=== PATIENT | male | born 1955 | race African-American/Black ===

== ENCOUNTER 2019-08-16 16:53 | Inpatient (IN) ==
[2019-08-16] MEDS ORDERED: SALINE LOCK IV FLUID XX ONE (19:21)
[2019-08-16] MEDS ORDERED: NS 1,000 ML IV ONE (19:21)
--- NOTE | 2019-08-16 19:33 | PROVIDER DOCUMENTATION ---
HPI-General Adult - General Chief Complaint: Abnormal Lab[s] Stated Complaint: SOB/COUGH Time Seen by Provider: 08/16/19 18:08 Source: family, residential records Allergies/Adverse Reactions: Patient Allergies Allergy/AdvReac Type Severity Reaction Status Date / Time Penicillins Allergy Unknown Verified 10/21/18 10:56 Sulfa (Sulfonamide Allergy Unknown Verified 10/21/18 10:56 Antibiotics) Home Medications: Home Medication List Medication Instructions Recorded Confirmed Last Taken Type Aspirin EC 81 mg PEG QAM 09/21/15 08/13/19 10/09/17 08:00 History Donepezil [Aricept] 10 mg PEG QHS 09/21/15 08/13/19 10/08/17 20:00 History Thiamine [Vitamin B-1] 100 mg PEG QAM 09/21/15 08/13/19 10/09/17 09:00 History Folic Acid 1 mg PEG QAM 10/09/17 08/13/19 10/09/17 09:00 History Levetiracetam 500 mg PEG BID 10/09/17 08/13/19 10/09/17 09:00 History Magnesium Hydroxide [Milk of 30 ml PO DAILY PRN 10/09/17 08/13/19 10/07/17 20:00 History Magnesia] Potassium Chloride 10% Liquid 20 meq PEG QAM 10/09/17 08/13/19 10/09/17 09:00 History Albuterol 2.5MG/Ipratrop 0.5MG 3 ml INH RTQ6H neb 10/14/17 08/13/19 Unknown Rx [Duoneb (A & A)] Chlorhexidine Gluconate [Peridex] 1 applicatn .SEE ORDER BID 08/13/19 08/13/19 Unknown History Diazepam 0.5 tab PEG TID 08/13/19 08/13/19 Unknown History Esomeprazole [Nexium Packet] 1 packet PEG DAILY 08/13/19 08/13/19 Unknown History Levofloxacin [Levaquin] 750 mg GT DAILY #7 tab 08/13/19 Unknown Rx Memantine HCl 10 mg PEG DAILY 08/13/19 08/13/19 Unknown History Menthol/Zinc Oxide Ointment 1 applicatn TOP BID PRN 08/13/19 08/13/19 Unknown History [Calmoseptine Ointment] Metoprolol Tartrate 12.5 mg PEG DAILY 08/13/19 08/13/19 Unknown History Quetiapine Fumarate 1 tab PEG QHS 08/13/19 08/13/19 Unknown History Quetiapine [Seroquel] 1 tab PEG BID 08/13/19 08/13/19 Unknown History Risperidone [Risperidone Odt] 1 mg PEG BID 08/13/19 08/13/19 Unknown History Tenofovir Disoproxil Fumarate 1 tab PEG DAILY 08/13/19 08/13/19 Unknown History - History of Present Illness -Gen Adult Nature of Presenting Problems: Patient is a 64 yo M [place] resident ([place]) W/PMH of Dementia, bedbound, ETOH use disorder, encephalopathy, HTN, MM, Seizure Disorder, chronic hep B, CVA, malnutrition s/p gastrostomy tube placement, and anemia of chronic disease, patient was seen in the ED on 08/13/2019 and was found to have a small right sided pleural effusion, UTI and bronchitis, patient was treated with antibiotics in the ED and discharged on Levaquin (patient has documented allergy to PNC and sulfa antibiotics of unknown severity); today, patient was sent back to the ED from [place] for further evaluation after final blood cultures drawn on 08/13/2019 resulted positive for coag neg staph/staph epidermidis and urine culture grew Providencia stuartii- (sensitive to 3rd and 4th gen cephalosporins and zosyn). Per family at bedside, patient has continues to have cough and chest congestion. Review of Systems - Adult - REVIEW OF SYSTEMS - ADULT ROS:: ROS per family Constitutional: reports: fever Eyes: reports: no symptoms reported Ears, Nose, Mouth & Throat: reports: no symptoms reported Cardiovascular: reports: no symptoms reported Respiratory: reports: cough (Productive) Gastrointestinal: reports: no symptoms reported Genitourinary: reports: no symptoms reported Musculoskeletal: reports: no symptoms reported Integumentary: reports: no symptoms reported Neurological: reports: no symptoms reported (No change form baseline-per family at bedside.) Psychiatric: reports: no symptoms reported Past History - Adult - PAST MEDICAL HISTORY-ADULT Review of Records: reports: Old Records Reviewed, Nursing Assessment Review, Medications Reviewed, Social history reviewed & non-contributory. Major Childhood Illnesses: reports: denies history Cardiovascular: reports: HTN Respiratory: reports: pneumonia Gastrointestinal: reports: denies history Genitourinary: reports: denies history Musculoskeletal: reports: denies history Neurological: reports: stroke deficits, dementia, Seizures/Epilepsy Psychiatric: reports: anxiety Endocrine/Immune: reports: denies history Other Conditions: reports: denies history Additional History: Alcoholism; Beb ridden for the past two years - PRIOR SURGERIES/PROCEDURES Surgical/Procedure History: reports: other (peg tube placement) - PRIOR HOSPITALIZATIONS Prior Hospitalizations: reports: for similar symptoms - IMMUNIZATION STATUS Childhood Immunizations: See Nurse Assessment Flu Vaccine: See Nurse Assessment - FAMILY HISTORY Family History: reviewed, not pertinent - SOCIAL HISTORY Smoking: cigarettes (Prior smoker) Substance Use: alcohol (Prior ETOH abuse) Living Situation: other ([facility]) Physical Exam-General - PHYSICAL EXAM-ADULT Initial Vital Signs Reviewed: Yes (RR 18 (wnl), rest of VS wnl ) - CONSTITUTIONAL General Appearance: other (Ill-appearing) - EYES Eyes: PERRL/EOMI - HEAD, EARS, NOSE, MOUTH & THROAT HENMT: normocephalic/atraumatic - NECK Neck: normal inspection - RESPIRATORY Respiratory: chest non-tender, rales (Right basilar + mid lung field), rhonchi (Bibasilar). negative: no respiratory distress, no accessory muscle use, respiratory distress, wheezing - CARDIOVASCULAR Cardiovascular: normal peripheral pulses, regular rate, rhythm, no edema, no murmur - GASTROINTESTINAL (ABDOMEN) Abdominal Exam: normal bowel sounds, non tender, soft, other (PEG tube in place, no evidence of stoma infection) - MUSCULOSKELETAL Extremity: no pedal edema, no calf tenderness, other (Bedbound) Peripheral Pulses: radial (R): 2+, radial (L): 2+ - SKIN Integumentary: normal color, normal turgor, warm/dry - NEUROLOGIC Neurologic: grossly normal Progress - PLAN OF CARE/RESULTS Progress/Plan/Lab Results: Vital Signs - 8 hr 08/16/19 17:45 Temperature 98.7 F Pulse Rate 87 Respiratory Rate 20 Blood Pressure 128/88 O2 Sat by Pulse Oximetry 100 Result Diagrams: 08/16/19 19:55 08/16/19 19:55 - EKG 1 Time of EKG reading by physician:: 22:15 EKG Read and Signed by:: Catrachita Morgan EKG Interpretation (*Must complete 3 of following elements*): Normal Rate: 93 [place]: normal OK Interval: normal ST Wave: non-specific ST changes (unchanged from prior) Prior EKG Comparison: unchanged from prior (10/21/2018) - XRAY 1 XRAY Study: Chest Impression: Abnormal, See EMR Report (IMPRESSION: Enlarging moderate right basilar pleural effusion. Electronically signed by Alen Gregory 08/16/2019 7:45 PM) - CONSULTS/PCP/HOSPITALIST Notification Time Discussed: 21:23 (Discussed antibiotic management for + blood culture (Staph epidermidis), + UCx (Providencia, sensitive to 3rd and 4th gen cephalosporins and zosyn- patient with documented allergy to PNC and Sulfas), will initiate Cefepime and Vancomycin in the ED) Reason/Comments: bacteremia, complicated UTI Consult Disposition: Will see in ED, Admit Departure - Departure Date of Disposition Decision: 08/16/19 Time of Disposition Decision: 21:29 DIAGNOSIS: Pleural effusion, right, Complicated urinary tract infection, Bacteremia due to coagulase-negative Staphylococcus, Bedbound Dementia Qualifiers: Dementia type: unspecified type Dementia behavioral disturbance: without b ehavioral disturbance Qualified Code(s): F03.90 - Unspecified dementia without behavioral disturbance Hypertension Qualifiers: Hypertension type: essential hypertension Qualified Code(s): I10 - Essential (primary) hypertension Disposition: ADMITTED INPATIENT 09 Certified Medical Emergency: Emergent Condition: Stable Referrals and Follow-Ups: June Patino MD [Primary Care Provider] - - Critical Care Note This patient required my direct & personal management of CC.: No Attestation - Physician/ PRISCILLA Attestation Patient care was provided by Advanced Practice Provider:: No The physician spent face to face time with patient:: Yes Advanced Practice Provider documentation review:: Supervising physician onsite and consulted in the evaluation and care of this patient. The physician did have a face to face encounter with the patient.
--- NOTE | 2019-08-16 19:47 | Diag Imaging Result Doc PS360 ---
CHEST-1 VIEW - 08/16/2019 INDICATION: Bilateral rales COMPARISON: 08/13/2019 FINDINGS: There is a slightly enlarging right basilar pleural effusion. This is moderate in size. Lung volumes are severely low. No definite infiltrates. Heart size is grossly normal. IMPRESSION: Enlarging moderate right basilar pleural effusion. Electronically signed by Alen Gregory 08/16/2019 7:45 PM
[2019-08-16 20:28] LABS: BASO# 0.03 X1000 (0.0-0.2); BASO% 0.2 % (0.0-0.8); EOS# 0.04 X1000 (0.0-0.7); EOS% 0.3 % (0.0-10.0); HEMOGLOBIN 11.6 g/dL (14.0-18.0); IMM GRAN# 0.12 X1000 (0.0-0.04); IMM GRAN% 0.8 % (0.0-0.5); LYMPH# 1.82 X1000 (1.2-3.4); LYMPH% 11.4 % (20.5-51.1); MCH 25.6 PG (27-31); MCHC 31.4 g/dL (33-37); MCV 81.7 FL (81-99); MONO# 1.54 X1000 (0.11-0.59); MONO% 9.7 % (1.7-9.3); MPV 11.9 FL (7.4-10.4); NEUT# 12.38 X1000 (1.4-6.5); NEUT% 77.6 % (42.2-75.2); PLT 243 X1000 (130-400); RBC 4.53 XMIL (4.7-6.1); RDW 13.8 % (11.5-14.5); WBC 15.93 X1000 (4.8-10.8)
[2019-08-16 20:39] LABS: AGAP 11; ALB/GLOB RATIO 0.8; ALBUMIN 3.7 g/dL (3.5-5.0); ALKALINE PHOSPHATASE 101 U/L (32-122); BUN 28 mg/dL (8-22); CALCIUM 9.3 mg/dL (8.8-10.2); CHLORIDE 102 mmol/L (98-107); COSMO 295; ESTIMATED GFR > 60; GLUCOSE 111 mg/dL (70-104); GOT 52 U/L (10-34); GPT 53 U/L (10-44); POTASSIUM 4.2 mmol/L (3.5-5.1); SODIUM 145 mmol/L (136-145); TCO2 32 mmol/L (25-35); TOTAL BILIRUBIN 0.41 mg/dL (0.20-1.00); TOTAL PROTEIN 8.3 g/dL (6.3-8.3)
[2019-08-16] MEDS ORDERED: MAXIPIME 2 GM in NS 100 ML IV ONE (21:20)
[2019-08-16] MEDS ORDERED: VANCOMYCIN 1 GM/NS 1 GM/250 ML IVPB IV ONE (21:20)
[2019-08-16 22:08] LABS: URINE SOURCE CLEAN CATCH
[2019-08-16 22:18] LABS: BILIRUBIN URINE NEGATIVE (NEGATIVE); BLOOD URINE NEGATIVE (NEGATIVE); COLOR YELLOW; GLUCOSE URINE NEGATIVE (NEGATIVE); KETONE URINE NEGATIVE (NEGATIVE); LEUKOCYTES URINE SMALL (NEGATIVE); NITRITE URINE POSITIVE (NEGATIVE); PROTEIN URINE TRACE mg/dL (NEGATIVE); SP GRAVITY URINE 1.017; TURBIDITY URINE CLEAR (CLEAR); UROBILINOGEN URINE NORMAL (NORMAL)
--- NOTE | 2019-08-16 22:19 | EKG Report ---
Test Performed on : 08/16/2019 10:12:55 PM Test Reason : CP Blood Pressure : / mmHG Vent. Rate : 093 BPM Atrial Rate : 093 BPM P-R Int : 150 ms QRS Dur : 072 ms QT Int : 368 ms P-R-T Axes : 045 -14 004 degrees QTc Int : 457 ms Normal sinus rhythm. Normal ECG When compared with ECG of 21-OCT-2018 15:26, Nonspecific T wave abnormality now evident in Inferior leads Unconfirmed Result
[2019-08-16 22:22] LABS: UR EPITHELIAL CELLS <10 /HPF (<10); URINE BACTERIA 1+ /HPF; URINE RBC <10 /HPF (<10); URINE WBC <10 /HPF (<10)
[2019-08-16] MEDS ORDERED: MAXIPIME 1 GM in NS 50 ML IV SCH (23:29)
[2019-08-16] MEDS ORDERED: DUONEB (A & A) INH PRN (23:29)
[2019-08-16] MEDS: NS 1,000 ML IV SCH (23:38)
[2019-08-16] MEDS ORDERED: NS 1,000 ML ONE (23:43)
[2019-08-17 06:09] LABS: BASO# 0.02 X1000 (0.0-0.2); BASO% 0.2 % (0.0-0.8); EOS# 0.06 X1000 (0.0-0.7); EOS% 0.5 % (0.0-10.0); HEMOGLOBIN 9.9 g/dL (14.0-18.0); IMM GRAN# 0.04 X1000 (0.0-0.04); IMM GRAN% 0.3 % (0.0-0.5); LYMPH# 2.14 X1000 (1.2-3.4); LYMPH% 16.2 % (20.5-51.1); MCH 25.4 PG (27-31); MCHC 30.9 g/dL (33-37); MCV 82.3 FL (81-99); MONO# 1.77 X1000 (0.11-0.59); MONO% 13.4 % (1.7-9.3); MPV 11.9 FL (7.4-10.4); NEUT# 9.18 X1000 (1.4-6.5); NEUT% 69.4 % (42.2-75.2); PLT 208 X1000 (130-400); RBC 3.89 XMIL (4.7-6.1); RDW 13.6 % (11.5-14.5); WBC 13.21 X1000 (4.8-10.8)
[2019-08-17 06:26] LABS: AGAP 8; BUN 23 mg/dL (8-22); CALCIUM 8.5 mg/dL (8.8-10.2); CHLORIDE 109 mmol/L (98-107); COSMO 295; CREATININE 0.8 mg/dL (0.7-1.2); ESTIMATED GFR > 60; GLUCOSE 104 mg/dL (70-104); POTASSIUM 3.7 mmol/L (3.5-5.1); SODIUM 146 mmol/L (136-145); TCO2 29 mmol/L (25-35)
--- NOTE | 2019-08-17 06:57 | HISTORY AND PHYSICAL ---
PRIMARY CARE PHYSICIAN: Unknown. CHIEF COMPLAINT: Abnormal labs. HISTORY OF PRESENTING ILLNESS: A 64-year-old male with a history of hypertension, CVA, alcohol use disorder, seizures, chronic hepatitis B, who apparently was initially seen at the emergency department, and was discharged on antibiotics for possible pneumonia. Apparently, when the patient returned back to the [place] [facility] he was not feeling well. He had blood cultures that were initially drawn that were positive. Subsequently, patient was returned back to the emergency department and due to his presenting conditions he will need admission for further management. The patient is a poor historian, and most of the history is obtained from family members, and previous medical records. PAST MEDICAL HISTORY: Includes hypertension, CVA, alcohol use disorder, seizures and chronic hepatitis B. PAST SURGICAL HISTORY: PEG tube placement. ALLERGIES: Penicillin and sulfa. CURRENT MEDICATIONS: 1. Albuterol nebulizers q.6 hours. 2. Aspirin 81 mg p.o. daily. 3. Diazepam 2.5 mg via PEG t.i.d. 4. Aricept 10 mg via PEG at bedtime. 5. Keppra 500 mg via PEG b.i.d. PI PEG b.i.d. 6. Memantine 10 mg via PEG daily. 7. Metoprolol 12.5 mg via PEG daily. 8. Quetiapine 50 mg 1 via PEG b.i.d. 9. Risperidone I mg via PEG b.i.d. 10. Thiamine 100 mg via PEG every morning. SOCIAL HISTORY: He is a former smoker. Previous history of alcohol abuse. Occasional marijuana use in the past. FAMILY HISTORY: No history of coronary disease. REVIEW OF SYSTEMS: Unable to obtain. PHYSICAL EXAMINATION: GENERAL: The patient is resting comfortably. He is without any respiratory distress. VITAL SIGNS: Temperature 98.7 degrees, pulse 87, respirations 20, and blood pressure 128/88. HEENT: Atraumatic, normocephalic. PERRLA. NECK: No masses. CHEST: Rhonchi. CARDIOVASCULAR: Regular rate and rhythm. ABDOMEN: Soft. Positive bowel sounds. EXTREMITIES: Trace edema. NEUROLOGIC: He is awake and alert. He is really not oriented. : No bladder distention. SKIN: Warm. LABORATORIES AND STUDIES: WBC 15.93, hemoglobin 11.6, hematocrit 37.0, and platelets 243,000. Sodium 145, potassium 4.2, chloride 102, CO2 32, BUN is 28, creatinine is 1.0, and glucose is 111. Chest x-ray shows enlarging moderate right basilar pleural effusion. ASSESSMENT: A 64-year-old male with a history of hypertension, CVA, alcohol use disorder, seizures and chronic hepatitis B. Apparently, he was seen in the emergency department several days ago and had blood cultures drawn. The patient was initially sent to the [place] [facility]. While he was there, he was not feeling well. He also had abnormal labs showing positive blood cultures. Subsequently, he was sent back to the emergency department. He was evaluated here, and due to his presenting symptoms, he will require admission for further management. 1. Positive blood cultures suspected bacteremia. 2. Right basilar pleural effusion. 3. CVA. 4. Seizure disorder. 5. Hypertension. PLAN: 1. We will admit patient to [facility]. 2. Check blood cultures. Start patient on IV antibiotics. 3. We will consult Pulmonary to evaluate his pleural effusion. 4. We will put patient on seizure precautions. 5. Restart his other home medications. 6. We will put patient on DVT prophylaxis and SCD's. 7. We will continue to follow and reassess. Make further recommendation based on patient's clinical course. cc: Cristian Jernigan MD MTDD
[2019-08-17] MEDS: ROCEPHIN 2 GM in NS 50 ML IV SCH (07:47)
[2019-08-17] MEDS: MYCOSTATIN SUSP PO SCH ×5 (07:47→21:46)
[2019-08-17] MEDS: NS 1,000 ML IV SCH (12:10)
--- NOTE | 2019-08-17 12:19 | Diag Imaging Result Doc PS360 ---
EXAM: US RENAL 2 (RETROPER) COMPLETE HISTORY: UTI TECHNIQUE: Renal ultrasound COMPARISON: 10/25/2017 FINDINGS: The right kidney measures 10.6 x 5.0 x 5.1 cm. The left kidney measures 11.2 x 5.7 x 5.5 cm. Normal renal echotexture and cortical thickness. There is a 6 mm nonobstructing stone lower pole of the right kidney. There is a 1.2 cm stone lower pole of the left kidney. The urinary bladder is moderately distended and is normal. IMPRESSION: Bilateral nonobstructing renal stones Electronically signed by Mike Tijerina 08/17/2019 12:16 PM
[2019-08-17] MEDS ORDERED: CALMOSEPTINE OINTMENT TOP PRN (12:22)
[2019-08-17] MEDS ORDERED: KEPPRA LIQUID PEG ONE (12:50)
--- NOTE | 2019-08-17 14:32 | INFECTIOUS DISEASE CONSULT REP ---
DATE: 08/17/2019 CONCLUSION: I was consulted to see the patient regarding his positive blood culture for a coagulase-negative staphylococcus in one out of two cultures that were drawn on August 13 of this year. This positive culture is a contaminant and does not require antibiotic treatment. The patient, however, does have urine that is growing Providencia and the patient also has a leukocytosis, and the urinary tract infection may be causing the leukocytosis. It is interesting to note it was 15,930 on admission and today it is down to 13,210. There also is a culture which is labeled abdomen that grew a Staphylococcus epidermidis. I am not certain where the culture was taken. The patient does have a G-tube in place and I suspect that it was taken from there but I do not think that the G-tube site on the abdomen is infected. There is no purulence. There is no erythema and there is no swelling. The patient's chest x-ray does show an enlarging right pleural effusion. Dr. Mendes has been consulted for the management of the effusion. The patient appears to have oral candidiasis. RECOMMENDATIONS: I think the patient's urinary tract infection could well be causing his leukocytosis. I have discontinued cefepime and placed the patient on Rocephin 2 g IV every 24 hours. I have also ordered an ultrasound of both kidneys and I have also requested for the patient's postvoid residual to be measured also. I am going to order nystatin to be painted on the patient's tongue and the rest of this mouth every 6 hours. He has a G-tube in place so I take it that he may aspirate if he takes something by mouth. DISCUSSION: The patient is unable to talk in a coherent fashion and no family member is present. The only information I have is from the computer. The ER doctor's dictation says that the patient was at [facility]. He was seen in the emergency department and found to have a small right pleural effusion, urinary tract infection, and bronchitis. He was treated in the emergency department and discharged on Levaquin. The patient was sent back to the emergency department because of the final blood cultures which showed one out of two blood cultures positive for coagulase-negative staphylococcus and a urine culture which grew Providencia, and a culture labeled abdomen grew Staphylococcus epidermidis, as I mentioned earlier. The patient's CBC, as I mentioned before, was 15,930. Today, it is 13,210. The hemoglobin is 9.9 and the platelet count is 208,000. Creatinine is 0.8. GFR is greater than 60. Urinalysis showed white cells and bacteria. Repeat blood and urine cultures are pending. One out of two blood cultures grew a coagulase-negative staphylococcus. They were drawn on the 13 of August. Culture from the abdomen grew Staphylococcus epidermidis. Urine grew Providencia. A chest x-ray is showing an enlarging right pleural effusion. The renal ultrasound showed nonobstructing renal stones and the bladder had 67ml of urine. PAST MEDICAL HISTORY: Positive for seizure disorder, chronic hepatitis B, stroke, malnutrition, status post gastrostomy tube placement, and anemia of chronic disease. Positive for hypertension, pneumonia, stroke, dementia, seizures, epilepsy, anxiety, and alcoholism. The patient has been bedridden for the past 2 years. The patient has a history of cigarette smoking, alcoholism, and use of illicit drugs. REVIEW OF SYSTEMS: I was unable to obtain. MEDICATIONS: The patient's medications in the skilled nursing include Aricept, albuterol inhaler, diazepam, Nexium, Levaquin, memantine, metoprolol, quetiapine which is Seroquel, risperidone, and tenofovir disoproxil. PRIOR SURGICAL HISTORY: The patient had a PEG tube placed. FAMILY HISTORY: Family history was not put in the patient's chart. PHYSICAL EXAMINATION: Vital Signs: Temperature is 98.3 degrees, pulse 78, respirations 25, blood pressure 117/76. The patient weighs 152 pounds. General: This is an ill- appearing, elderly male. He is in no acute distress. Head, Eyes, Ears, Nose, and Throat: It does appear to me that the patient has oral candidiasis because he has a white coating on his tongue. The patient does have some white coating on his tongue which I think is due to candidiasis. Neck: No meningismus. Lungs: Clear to auscultation. Cardiovascular: Regular heart rate. Abdomen: Soft and nontender. A G-tube is in place. There is no purulence or erythema present. There is no drainage present either. Neurologic: The patient was sleeping. I was able to arouse him. He did move his extremities to request. When he talked, I could not understand what he said. Thank you for the consult. cc: MD Markos Moreno MD MTDD
[2019-08-17] MEDS: DUONEB (A & A) INH SCH ×2 (15:33→22:49)
[2019-08-17] MEDS: VALIUM PEG SCH ×2 (15:41→21:48)
--- NOTE | 2019-08-17 21:01 | PROGRESS NOTE ---
DATE: 08/17/2019 SUBJECTIVE: This is a 64-year-old gentleman admitted last night for abnormal labs essentially. He was admitted I think because of positive blood cultures, but the blood cultures were coagulase- negative staphylococcus. In any case, he is asking for water. Apparently he is allowed some thickened liquids, but most of his feeding goes through his PEG tube. OBJECTIVE: Blood pressure 129/70, heart rate 74, respiratory rate 20, temperature 99.3 degrees.Cardiovascular: Regular rate and rhythm. Pulmonary: Bilateral breath sounds, clear to auscultation. GI was soft, nontender. He does have some purulent discharge around his PEG site. ASSESSMENT AND PLAN: 1. Bacteremia, which is likely a contaminant. Just 1 out of 2 blood cultures was positive for coagulase-negative staphylococcus; however, he does have a urinary tract infection with Providencia stuartii which is resistant to multiple agents, but fortunately not to cephalosporins or Zosyn. His abdomen culture grew out Staphylococcus epidermidis, but hard to say if that was not a contaminant. In any case, I think bacteremia is not an active issue. He does have a urinary tract infection. He is on Rocephin. I guess Infectious Disease was consulted, and Dr. Mendes was consulted because of next problem. 2. Pleural effusion, for which I think he will probably need thoracentesis. Dr. Mendes has beat me to the punch and ordered the CT scan, which was also my plan to see if thoracentesis is required. 3. Dementia. He is on his current medications. We will maintain those and follow. 4. Disposition pending clinical status. cc: Markos Stanley MD
[2019-08-17] MEDS: ARICEPT PEG SCH (21:44)
[2019-08-17] MEDS: KEPPRA PEG SCH (21:44)
[2019-08-17] MEDS: MILK OF MAGNESIA PEG SCH (21:45)
[2019-08-17] MEDS: SEROQUEL PEG SCH (21:45)
[2019-08-17] MEDS: RISPERDAL M-TAB PEG SCH (21:46)
--- NOTE | 2019-08-17 21:56 | Diag Imaging Result Doc PS360 ---
EXAM: CT THORAX W/O CONTRAST - 08/17/2019 HISTORY: effusion vs empyema TECHNIQUE: CT thorax without contrast. No contrast administered per request of the referring provider. COMPARISON: 10/26/2017 FINDINGS: There is some limitation of detail without administered intravenous contrast. There is some chronic elevation of the right hemidiaphragm. There is a moderate right pleural effusion. There is atelectasis of the right lower lobe, which may represent compressive atelectasis from the pleural effusion. There is mild dependent/compressive atelectasis at the right upper lobe. The left lung appears clear except for some basilar subsegmental atelectasis. There is no pneumothorax identified. There are mildly prominent mediastinal lymph nodes, which may be reactive. IMPRESSION: Moderate right pleural effusion. Atelectasis of right lower lobe, which may represent compressive atelectasis from the pleural effusion. Mild dependent/compressive atelectasis at right upper lobe. This exam was performed using automated exposure control, adjustment of mA or kV according to patient size, and/or use of iterative reconstruction technique. Electronically signed by Ty Beckman 08/17/2019 9:54 PM
[2019-08-17] MEDS ORDERED: VANCOMYCIN IV PER PHARMACY MISC SCH (23:00)
--- NOTE | 2019-08-18 00:42 | INFECTIOUS DISEASE CONSULT REP ---
DATE: 08/17/2019 ADDENDUM: Following is an addendum to the consult I dictated earlier. I sent the patient down for a renal ultrasound. They told me that the patient was unable to void and he had 67 mL of urine in his bladder. cc: MD Markos Moreno MD
[2019-08-18] MEDS ORDERED: VANCOMYCIN 2,000 MG in NS 500 ML IV ONE (02:00)
[2019-08-18] MEDS: DUONEB (A & A) INH SCH ×4 (03:19→21:15)
[2019-08-18] MEDS: NEXIUM PACKET PEG SCH (06:01)
[2019-08-18] MEDS: ROCEPHIN 2 GM in NS 50 ML IV SCH (06:53)
[2019-08-18 08:25] LABS: BASO# 0.03 X1000 (0.0-0.2); BASO% 0.3 % (0.0-0.8); EOS% 0.9 % (0.0-10.0); HEMATOCRIT 30.2 % (42.0-52.0); HEMOGLOBIN 9.2 g/dL (14.0-18.0); IMM GRAN# 0.03 X1000 (0.0-0.04); IMM GRAN% 0.3 % (0.0-0.5); LYMPH# 2.12 X1000 (1.2-3.4); LYMPH% 19.3 % (20.5-51.1); MCH 25.2 PG (27-31); MCHC 30.5 g/dL (33-37); MCV 82.7 FL (81-99); MONO# 1.36 X1000 (0.11-0.59); MONO% 12.4 % (1.7-9.3); MPV 11.8 FL (7.4-10.4); NEUT# 7.32 X1000 (1.4-6.5); NEUT% 66.8 % (42.2-75.2); PLT 208 X1000 (130-400); RBC 3.65 XMIL (4.7-6.1); RDW 13.3 % (11.5-14.5); WBC 10.96 X1000 (4.8-10.8)
--- NOTE | 2019-08-18 08:37 | PULMONOLOGY CONSULTATION ---
DATE: 08/17/2019 REASON FOR CONSULTATION: Pleural effusion. HISTORY OF PRESENT ILLNESS: Mr. Delarosa is a 64-year-old male with multiple medical problems, including prior stroke, history of alcohol abuse, microvascular cerebral disease with encephalopathy, who was treated in the emergency room on 08/13/2019 with small effusion, bronchitis, and urinary tract infection. He has had progressive cough and congestion. He has had significant increase in effusion/consolidation at the right base. PAST MEDICAL HISTORY: 1. Dementia, likely related to tobacco and alcohol use and microvascular disease. 2. History of chronic pancreatitis. 3. History of alcohol abuse. 4. History of seizures. 5. History of strokes identified on CT scan. 6. Aspiration on barium swallow. 7. Status post PEG tube. 8. Hypertension. 9. Prior intubation and mechanical ventilation due to intractable seizures. SOCIAL HISTORY: Significant alcohol and tobacco use. Currently resides in a halfway. FAMILY HISTORY: Noncontributory. REVIEW OF SYSTEMS: Cannot be obtained. The patient opens his eyes to voice. He will track the practitioner briefly, but will not answer questions. PHYSICAL EXAMINATION: General: A chronically ill-appearing male in no distress. Vital Signs: The patient is afebrile, blood pressure is 133/77, heart rate 88, respiratory rate 16, oxygen saturation 96%. HEENT: Pupils are equal and reactive. Oropharynx appears clear. Neck: Supple Chest: Decreased breath sounds right lung base, rhonchi.. LABORATORY DATA: Urine cultures from 4 days ago revealed Providencia stuartii. White blood count 13.21, hemoglobin 9.9, platelet count 208,000. IMPRESSION: A 64-year-old with: 1. Acute hypoxemic respiratory failure. 2. Right lower lobe pneumonia. 3. Right-sided pleural effusion. 4. Leukocytosis. 5. Dementia with prior strokes. DISCUSSION: A 64-year-old with problems outlined above. The patient's pneumonia and pleural effusion have increased over the last several days. This likely represents a halfway- acquired pneumonia. RECOMMENDATIONS: 1. Agree with Infectious Disease evaluation and management of pneumonia. 2. CT scan of the thorax. If the patient has any signs of empyema, would recommend thoracentesis. 3. Continue bronchial hygiene. 4. Guarded prognosis. cc: MD Markos Pineda MD MTDD
[2019-08-18 08:46] LABS: AGAP 10; BUN 18 mg/dL (8-22); CALCIUM 8.3 mg/dL (8.8-10.2); CHLORIDE 114 mmol/L (98-107); COSMO 304; CREATININE 0.8 mg/dL (0.7-1.2); ESTIMATED GFR > 60; GLUCOSE 114 mg/dL (70-104); POTASSIUM 3.7 mmol/L (3.5-5.1); SODIUM 152 mmol/L (136-145); TCO2 28 mmol/L (25-35)
[2019-08-18] MEDS ORDERED: ASPIRIN PEG SCH (09:00)
[2019-08-18] MEDS: VALIUM PEG SCH ×3 (09:34→23:07)
[2019-08-18] MEDS: SEROQUEL PEG SCH ×2 (09:34→23:10)
[2019-08-18] MEDS: VITAMIN B-1 PEG SCH (09:34)
[2019-08-18] MEDS: MYCOSTATIN SUSP PO SCH ×4 (09:34→23:08)
[2019-08-18] MEDS: KEPPRA PEG SCH ×2 (09:34→23:07)
[2019-08-18] MEDS: FOLIC ACID PEG SCH (09:34)
[2019-08-18] MEDS: NAMENDA PEG SCH (09:34)
[2019-08-18] MEDS: LOPRESSOR PEG SCH (09:35)
[2019-08-18] MEDS: RISPERDAL M-TAB PEG SCH ×2 (09:35→23:08)
[2019-08-18 10:29] LABS: PHOSPHORUS 3.2 mg/dL (2.7-4.5)
[2019-08-18] MEDS: TENOFOVIR DISOPROXIL FUMARATE PEG SCH (11:11)
[2019-08-18] MEDS: D5W 1,000 ML IV SCH ×2 (12:25→23:10)
[2019-08-18] MEDS ORDERED: VANCOMYCIN IV PER PHARMACY MISC SCH (18:15)
--- NOTE | 2019-08-18 22:03 | PROGRESS NOTE ---
DATE: 08/18/2019 SUBJECTIVE: Patient has no major complaints. OBJECTIVE: Blood pressure is 127/71, heart rate of 67, respiratory rate of 19, temperature 97.3 degrees.Cardiovascular: Regular rate and rhythm. Pulmonary: Bilateral breath sounds. Clear to auscultation. Gastrointestinal: Soft, nontender, nondistended. Bowel sounds are positive. He seems a bit lethargic today, but his sodium has climbed fairly precipitously. LABORATORY DATA: White count is 10, hemoglobin and hematocrit is 9 and 30, platelets 208,000. Sodium is up to 152, with a pre-albumin of 9. Microbiology: He has gram-negative cole in his urine culture and 1 blood culture has gram-positive cocci out of 2. PROBLEM LIST: 1. Complicated urinary tract infection. We will continue empiric antibiotics and follow accordingly. 2. Gram-positive cocci bacteremia, which may be a contaminant. We will continue vancomycin for the time being. 3. Pleural effusion. May require thoracentesis. Pulmonary is following. CT scan of the chest showed a moderate right pleural effusion with atelectasis, so he may end up needing a thoracentesis. I will kind of see how things look with Dr. Mendes. It will be a little bit difficult to do because of his intellectual impairment issues. 4. Hypernatremia. We will continue treatment with D5 and follow accordingly. 5. History of seizure disorder. Continue his regular medications and follow. DISPOSITION: Pending his clinical status. cc: Markos Stanley MD
--- NOTE | 2019-08-18 22:30 | INFECTIOUS DISEASE PROGRESS NO ---
DATE: 08/18/2019 PRESENT ILLNESS: The patient has a Providencia urinary tract infection, which I think is causing his leukocytosis. MEDICATIONS: The patient is receiving Rocephin. This is day 1 of treatment with it. PHYSICAL EXAMINATION: Vital Signs: Temperature is 97.3 degrees, pulse 67, respirations 18, blood pressure 118/71. General: This is a chronically ill-appearing, elderly male. He is very lethargic. Head/eyes/ears/nose/throat: No drainage noted from the nose or ears. Neck: No meningismus. Lungs: Clear to auscultation. Cardiovascular: Heart rate is regular. Abdomen: Soft and does not appear to be tender. Patient has a G-tube in place. The site is not purulent or bleeding. Neurologic: The patient is very lethargic. He did not respond to verbal stimuli. There is no tremor. LAB AND X-RAY: The patient's white count is down to 10,960, hemoglobin is 9.2, platelet count is 208,000. Creatinine is 0.8, GFR is greater than 60. ASSESSMENT AND PLAN: The patient has a Providencia urinary tract infection. I plan on continuing treatment for a total of 2 weeks. COMORBIDITIES: The patient has a seizure disorder. He has malnutrition. He has anemia of chronic disease. He has had a prior stroke. He has dementia. He has epilepsy and he is an alcoholic. He also smokes cigarettes and uses illicit drugs. cc: MD Markos Moreno MD
[2019-08-18] MEDS: ARICEPT PEG SCH (23:07)
[2019-08-19] MEDS: SEROQUEL PEG PRN (01:02)
[2019-08-19] MEDS: VANCOMYCIN 1,500 MG in NS 250 ML IV SCH (01:15)
--- NOTE | 2019-08-19 01:43 | PULMONOLOGY PROGRESS NOTE ---
DATE: 08/18/2019 SUBJECTIVE: The patient opens his eyes. He does not follow commands. OBJECTIVE: Vital Signs: He has been afebrile for the last 24 hours with a maximum temperature of 99.5 degrees, BP 118/71, heart rate 67, respiratory rate 18, oxygen saturation 100%. HEENT: Pupils are equal and reactive. Oropharynx is clear. Neck: Supple. Chest: Reveals diminished breath sounds right base. Cardiac: S1-S2. Abdomen: Soft. Extremities: Without edema. LABORATORIES: Microbiology reveals gram-positive cocci in his blood culture today. The patient has also had 2 positive blood cultures with gram positive cocci on 08/13/2019. The patient also has a gram-negative organism in his urine. White blood count 10.96, hemoglobin 9.2, platelet count 208,000. Sodium 152, potassium 3.7, chloride 114, bicarbonate 28, BUN 18, creatinine 0.8. CT scan reveals consolidation in the right lower lobe with small effusion superiorly and smaller effusion posteriorly. IMPRESSION: A 64-year-old with: 1. Acute hypoxemic respiratory failure. 2. Right lower lobe pneumonia. 3. Small to moderate pleural effusion but significant consolidation of the right lower lobe. 4. 3 out of 4 blood cultures positive for gram-positive cocci. 5. Gram-negative urinary tract infection. 6. Dementia. DISCUSSION: A 64-year-old with problems outlined above. Pleural effusion will not easily be tapped given the basilar nature. Would recommend continue treatment with antibiotics at this juncture for pneumonia. We will also schedule echocardiogram given recurrent gram-positive bacteremia and 2 additional blood cultures have been ordered. PLAN: 1. Continue antibiotics for pneumonia. 2. Repeat blood cultures. 3. Echocardiogram. 4. Guarded prognosis. cc: MD Markos Pineda MD
[2019-08-19] MEDS ORDERED: VANCOMYCIN 1,500 MG in NS 250 ML IV SCH (02:00)
[2019-08-19] MEDS: DUONEB (A & A) INH SCH ×4 (03:30→21:30)
[2019-08-19] MEDS: TYLENOL PEG PRN (05:48)
[2019-08-19] MEDS: NEXIUM PACKET PEG SCH (06:11)
[2019-08-19] MEDS: ROCEPHIN 2 GM in NS 50 ML IV SCH (06:14)
--- NOTE | 2019-08-19 06:57 | Diag Imaging Result Doc PS360 ---
EXAM: CHEST-PORTABLE HISTORY: abnormal exam TECHNIQUE: Single view COMPARISON: 08/16/2019 FINDINGS: Moderate-sized right pleural effusion. There is atelectasis in the right lung. No cardiomegaly. The left lung is clear. IMPRESSION: Stable chest Electronically signed by Mike Tijerina 08/19/2019 6:55 AM
[2019-08-19] MEDS: NAMENDA PEG SCH (08:21)
[2019-08-19] MEDS: SEROQUEL PEG SCH ×2 (08:21→22:11)
[2019-08-19] MEDS: LOPRESSOR PEG SCH (08:21)
[2019-08-19] MEDS: VITAMIN B-1 PEG SCH (08:21)
[2019-08-19] MEDS: KEPPRA PEG SCH ×2 (08:21→22:10)
[2019-08-19] MEDS: TENOFOVIR DISOPROXIL FUMARATE PEG SCH (08:22)
[2019-08-19] MEDS: FOLIC ACID PEG SCH (08:22)
[2019-08-19] MEDS: RISPERDAL M-TAB PEG SCH ×2 (08:22→22:11)
[2019-08-19] MEDS: MYCOSTATIN SUSP PO SCH ×4 (08:24→22:11)
[2019-08-19 08:25] LABS: AGAP 8; ALBUMIN 2.5 g/dL (3.5-5.0); BUN 16 mg/dL (8-22); CALCIUM 8.3 mg/dL (8.8-10.2); CHLORIDE 105 mmol/L (98-107); COSMO 283; CREATININE 0.6 mg/dL (0.7-1.2); ESTIMATED GFR > 60; GLUCOSE 112 mg/dL (70-104); MAGNESIUM 1.7 mg/dL (1.5-2.7); PHOSPHORUS 3.4 mg/dL (2.7-4.5); POTASSIUM 3.7 mmol/L (3.5-5.1); SODIUM 141 mmol/L (136-145); TCO2 28 mmol/L (25-35)
[2019-08-19] MEDS: VALIUM PEG SCH ×3 (08:45→22:11)
[2019-08-19 10:10] LABS: HEMATOCRIT 32.3 % (42.0-52.0); HEMOGLOBIN 9.9 g/dL (14.0-18.0); MCH 24.9 PG (27-31); MCHC 30.7 g/dL (33-37); MCV 81.2 FL (81-99); MPV 11.7 FL (7.4-10.4); RBC 3.98 XMIL (4.7-6.1); RDW 13.3 % (11.5-14.5); WBC 10.91 X1000 (4.8-10.8)
[2019-08-19 11:44] LABS: INR 1.12; PROTIME 14.5 Seconds (11.0-16.0)
[2019-08-19] MEDS: D5W 1,000 ML IV SCH (12:18)
[2019-08-19] MEDS ORDERED: NS 250 ML ONE (15:10)
--- NOTE | 2019-08-19 17:55 | ECHO REPORT ---
ORDER DATE: 08/18/2019 INTERPRETING PHYSICIAN: Ki Hoang MD. ECHOCARDIOGRAPHIC MEASUREMENTS: 1. Interventricular septum 1.2. 2. Left ventricular posterior wall 0.8. 3. Diastolic diameter 4.3. 4. Left atrium 3. 5. Aorta 3.7. SUMMARY OF THE 2-DIMENSIONAL FINDINGS: 1. Aortic valve leaflets are trileaflet. 2. Pulmonic valve is normal. 3. Mitral valve is normal. 4. Tricuspid valve is normal. There is mild mitral regurgitation. Mild tricuspid regurgitation. Peak velocity across the tricuspid valve is 2.4 m/sec. 5. Pulmonary artery systolic pressure of 33 mmHg. 6. Peak velocity across the aortic valve less than 2 m/sec. There is no aortic stenosis or regurgitation. 7. Normal left ventricular cavity size. Estimated ejection fraction of 65%. There is grade 1 diastolic dysfunction. 8. There is no pericardial effusion, or obvious intracardiac mass or thrombus seen. cc: MD Delon White MD Alexis R. Penot, MD
--- NOTE | 2019-08-19 19:50 | INFECTIOUS DISEASE PROGRESS NO ---
DATE: 08/19/2019 The patient does not appear to have had pneumonia. Both on CT scan and x-ray, pneumonia was not mentioned. He does have atelectasis and pleural fluid. He does have a Providencia urinary tract infection, which I think is the cause of his coming to the hospital. Unfortunately, I cannot find an oral antibiotic to treat it, and I would suggest treating him with Rocephin 2 g IV daily for a total of 14 days. He has already had 2 days in the hospital, so he would just need 12 more days. I am going to sign off on the patient's case. cc: MD Markos Moreno MD
[2019-08-19] MEDS: MILK OF MAGNESIA PEG SCH (22:10)
[2019-08-19] MEDS: ARICEPT PEG SCH (22:10)
--- NOTE | 2019-08-20 00:27 | PULMONOLOGY PROGRESS NOTE ---
DATE: 08/19/2019 SUBJECTIVE: The patient is awake, alert, and conversant. He does have a cough. He appears more oriented than yesterday. OBJECTIVE: Vital Signs: Maximum temperature in the last 24 hours 100.1 degrees, blood pressure 126/78, heart rate 80, respiratory rate 18, oxygen saturation 96% on 3 L per nasal cannula. HEENT: Pupils are equal and reactive. Oropharynx appears clear. Neck: Supple. Chest: Reveals diminished breath sounds right lung base. Cardiac: S1-S2. Abdomen: Soft. Extremities: Without edema. LABORATORIES: White blood count 10.91, hemoglobin 9.9, platelet count 216,000. Chest x-ray reveals consolidation at the right base with a right-sided effusion. Microbiology reveals Providencia stuartii. IMPRESSION: A 64-year-old with: 1. Right lower lobe pneumonia. 2. Small to moderate parapneumonic effusion. 3. Acute hypoxemic respiratory failure. 4. Three positive blood cultures for coagulase-negative staphylococcus over a 3 day with a negative echocardiogram for endocarditis. 5. Gram-negative urinary tract infection. 6. Dementia. RECOMMENDATIONS: 1. Continue antibiotics for pneumonia. Consider expanding gram-negative coverage if he does not continue to improve. 2. Continue bronchial hygiene with nebulizer treatments. 3. Recommend followup CT scan in 7 to 10 days. cc: MD Markos Pineda MD
[2019-08-20] MEDS: SEROQUEL PEG PRN ×2 (01:25→21:36)
[2019-08-20] MEDS: VANCOMYCIN 1,500 MG in NS 250 ML IV SCH (03:16)
[2019-08-20] MEDS: DUONEB (A & A) INH SCH ×4 (03:26→22:39)
--- NOTE | 2019-08-20 03:31 | PROGRESS NOTE ---
DATE: 08/19/2019 SUBJECTIVE: Patient has no major complaints. OBJECTIVE: Vital Signs: Blood pressure is 126/78, heart rate of 80, respiratory 18, temperature 98.4 degrees, 96% on 3 L. Cardiovascular: Regular rate and rhythm. Pulmonary: Bilateral breath sounds clear to auscultation. GI: Soft, nontender, nondistended. Bowel sounds are positive. LABORATORY DATA: White count 10, hemoglobin 10, hematocrit 32, platelets 216. Basic was normal. Serum protein electrophoresis did have an M spike. Albumin has dropped to 2.5. PROBLEM LIST: 1. Complicated urinary tract infection. Micro reveals Providencia which is sensitive to cephalosporins, amikacin and Zosyn. Dr. Childs is recommending Rocephin, so we are going to go ahead and place a PICC and do that. 2. Gram-positive bacteremia. Now he has 2 different sets positive for Staph epi or coag-negative staphylococcus. I ordered a PICC line, but I am not entirely sure it was placed, but in any case, I will talk to Dr. Childs about if he feels this is just a contaminant. One being positive is a contaminant but 2 separate cultures being positive, I am not entirely sure, especially if we are going to place a PICC line, so we will continue to follow. 3. Pleural effusion, pneumonia. Dr. Mendes is following. We are going to continue antibiotics and monitor closely. 4. Hypernatremia that is much improved. I am going to stop his dextrose and we will continue to follow. DISPOSITION: Pending his clinical status, but most likely rehab soon. cc: Markos Stanley MD
[2019-08-20] MEDS: NEXIUM PACKET PEG SCH (06:29)
[2019-08-20 07:21] LABS: BASO# 0.03 X1000 (0.0-0.2); BASO% 0.3 % (0.0-0.8); EOS# 0.25 X1000 (0.0-0.7); EOS% 2.1 % (0.0-10.0); HEMATOCRIT 31.2 % (42.0-52.0); HEMOGLOBIN 9.9 g/dL (14.0-18.0); IMM GRAN# 0.04 X1000 (0.0-0.04); IMM GRAN% 0.3 % (0.0-0.5); LYMPH# 2.16 X1000 (1.2-3.4); LYMPH% 18.3 % (20.5-51.1); MCH 25.5 PG (27-31); MCHC 31.7 g/dL (33-37); MCV 80.4 FL (81-99); MONO# 1.35 X1000 (0.11-0.59); MONO% 11.5 % (1.7-9.3); NEUT# 7.95 X1000 (1.4-6.5); NEUT% 67.5 % (42.2-75.2); PLT 232 X1000 (130-400); RBC 3.88 XMIL (4.7-6.1); RDW 13.1 % (11.5-14.5); WBC 11.78 X1000 (4.8-10.8)
[2019-08-20 07:39] LABS: AGAP 9; BUN 15 mg/dL (8-22); CALCIUM 8.3 mg/dL (8.8-10.2); CHLORIDE 104 mmol/L (98-107); COSMO 282; CREATININE 0.7 mg/dL (0.7-1.2); ESTIMATED GFR > 60; GLUCOSE 101 mg/dL (70-104); POTASSIUM 3.9 mmol/L (3.5-5.1); SODIUM 141 mmol/L (136-145); TCO2 28 mmol/L (25-35)
[2019-08-20] MEDS: RISPERDAL M-TAB PEG SCH ×2 (08:58→20:38)
[2019-08-20] MEDS: NAMENDA PEG SCH (08:58)
[2019-08-20] MEDS: LOPRESSOR PEG SCH (08:58)
[2019-08-20] MEDS: FOLIC ACID PEG SCH (08:59)
[2019-08-20] MEDS: KEPPRA PEG SCH ×2 (08:59→20:37)
[2019-08-20] MEDS: SEROQUEL PEG SCH ×2 (08:59→20:38)
[2019-08-20] MEDS: VITAMIN B-1 PEG SCH (09:00)
[2019-08-20] MEDS: VALIUM PEG SCH ×3 (09:00→20:38)
[2019-08-20] MEDS: TENOFOVIR DISOPROXIL FUMARATE PEG SCH (09:00)
[2019-08-20] MEDS: MYCOSTATIN SUSP PO SCH ×4 (09:00→20:37)
[2019-08-20] MEDS: ROCEPHIN 2 GM in NS 50 ML IV SCH (09:00)
[2019-08-20] MEDS: TYLENOL PEG PRN (09:05)
[2019-08-20] MEDS: ARICEPT PEG SCH (20:37)
--- NOTE | 2019-08-20 23:37 | PROGRESS NOTE ---
DATE: 08/20/2019 SUBJECTIVE: Patient has no major complaints. OBJECTIVE: Blood pressure is 144/75, heart rate of 91, respiratory rate of 18, temperature 99.7 degrees.Cardiovascular: Regular rate and rhythm. Pulmonary: Bilateral breath sounds clear to auscultation. GI: Soft, nontender, nondistended. Bowel sounds are positive. LABORATORY DATA: White count 11, hemoglobin and hematocrit 9.9 and 31, platelets of 232,000. Basic was normal. PROBLEM LIST: 1. Complicated urinary tract infection, positive Providencia, he is currently on Rocephin per PICC line. 2. Questionable gram-positive bacteremia. We are continuing to follow. Repeat blood cultures are negative. 3. Pleural effusion, pneumonia, continue treatment, I believe repeat chest x- ray tomorrow. 4. Severe dysphagia with high aspiration risk will continue treatment and monitor. He does have pneumonia and he is only on Rocephin so we may have to expand his coverage a little bit. I agree with Dr. Mendes. DISPOSITION: He is long-term care so will see how he does tomorrow and go from there. cc: Markos Stanley MD [facility]
--- NOTE | 2019-08-21 01:13 | PULMONOLOGY PROGRESS NOTE ---
DATE: 08/20/2019 SUBJECTIVE: The patient is awake and alert. He has a fair cough. He is more conversant than yesterday. OBJECTIVE: Vital Signs: The patient has been afebrile for the last 24 hours with maximum temperature 99.8 degrees, BP 114/72, heart rate 91, respiratory rate 18, oxygen saturation 98%. HEENT: Pupils are equal and reactive. Oropharynx appears clear. Neck: Supple. Chest: Reveals diminished breath sounds right base. Cardiac: S1-S2. Abdomen: Soft. Extremities: Reveal trace edema. LABORATORIES: Microbiology reveals no new data. White blood count 11.78, hemoglobin 9.9, platelet count 232,000. IMPRESSION: A 64-year-old with: 1. Right lower lobe pneumonia. 2. Small to moderate parapneumonic effusion. 3. Acute hypoxemic respiratory failure. 4. Multiple positive cultures for gram-negative Staphylococcus with negative echocardiogram. 5. Gram-negative urinary tract infection. 6. Dementia. RECOMMENDATIONS: 1. Continue current antibiotics. 2. Continue bronchial hygiene. 3. Followup chest x-ray 7 to 10 days. cc: MD Markos Pineda MD
[2019-08-21] MEDS: VANCOMYCIN 1,500 MG in NS 250 ML IV SCH ×2 (03:17→20:35)
[2019-08-21] MEDS: DUONEB (A & A) INH SCH ×4 (03:38→22:50)
[2019-08-21] MEDS: NEXIUM PACKET PEG SCH (06:39)
[2019-08-21 07:28] LABS: BASO# 0.03 X1000 (0.0-0.2); BASO% 0.2 % (0.0-0.8); EOS# 0.19 X1000 (0.0-0.7); EOS% 1.4 % (0.0-10.0); HEMATOCRIT 29.7 % (42.0-52.0); HEMOGLOBIN 9.4 g/dL (14.0-18.0); IMM GRAN# 0.05 X1000 (0.0-0.04); IMM GRAN% 0.4 % (0.0-0.5); LYMPH# 2.46 X1000 (1.2-3.4); LYMPH% 18.1 % (20.5-51.1); MCH 25.2 PG (27-31); MCHC 31.6 g/dL (33-37); MCV 79.6 FL (81-99); MONO# 1.37 X1000 (0.11-0.59); MONO% 10.1 % (1.7-9.3); MPV 11.3 FL (7.4-10.4); NEUT# 9.49 X1000 (1.4-6.5); NEUT% 69.8 % (42.2-75.2); PLT 226 X1000 (130-400); RBC 3.73 XMIL (4.7-6.1); WBC 13.59 X1000 (4.8-10.8)
[2019-08-21 07:50] LABS: AGAP 8; ALBUMIN 2.6 g/dL (3.5-5.0); BUN 17 mg/dL (8-22); CALCIUM 8.4 mg/dL (8.8-10.2); CHLORIDE 102 mmol/L (98-107); COSMO 280; CREATININE 0.7 mg/dL (0.7-1.2); ESTIMATED GFR > 60; GLUCOSE 118 mg/dL (70-104); MAGNESIUM 1.6 mg/dL (1.5-2.7); PHOSPHORUS 2.5 mg/dL (2.7-4.5); POTASSIUM 4.1 mmol/L (3.5-5.1); SODIUM 139 mmol/L (136-145); TCO2 29 mmol/L (25-35)
--- NOTE | 2019-08-21 08:05 | Diag Imaging Result Doc PS360 ---
EXAM: CHEST-PORTABLE INDICATION: abnormal exam TECHNIQUE: One view COMPARISON: 08/19/2019 FINDINGS: The moderate to large sized pleural effusion on the right is stable to marginally increase in size. Adjacent atelectasis and/or infiltrate is approximately stable. There has been interval placement of a right PICC line. The tip projecting over the lower SVC near the atrial caval junction in the expected position. No other new consolidation is identified. Cardiac silhouette is stable. IMPRESSION: Stable to marginal increase in size of the right pleural effusion as described. Electronically signed by Hossein Lu 08/21/2019 8:02 AM
[2019-08-21] MEDS: FOLIC ACID PEG SCH (09:34)
[2019-08-21] MEDS: TENOFOVIR DISOPROXIL FUMARATE PEG SCH (09:34)
[2019-08-21] MEDS: SEROQUEL PEG SCH ×2 (09:34→20:34)
[2019-08-21] MEDS: RISPERDAL M-TAB PEG SCH ×2 (09:35→20:34)
[2019-08-21] MEDS: VALIUM PEG SCH ×3 (09:35→20:34)
[2019-08-21] MEDS: ROCEPHIN 2 GM in NS 50 ML IV SCH (09:35)
[2019-08-21] MEDS: NAMENDA PEG SCH (09:36)
[2019-08-21] MEDS: KEPPRA PEG SCH ×2 (09:36→20:33)
[2019-08-21] MEDS: LOPRESSOR PEG SCH (09:36)
[2019-08-21] MEDS: VITAMIN B-1 PEG SCH (09:36)
[2019-08-21] MEDS: MYCOSTATIN SUSP PO SCH ×4 (09:36→20:34)
[2019-08-21] MEDS: TYLENOL PEG PRN ×2 (09:36→20:34)
--- NOTE | 2019-08-21 17:30 | PROGRESS NOTE ---
DATE: 08/21/2019 SUBJECTIVE: He is more awake today, but he is complaining of cold feet. OBJECTIVE: Vital signs: Blood pressure is 103/63, heart rate of 80, respiratory rate 16, temperature 98.2 degrees. No fevers. Cardiovascular: Regular rate and rhythm. Pulmonary: Diminished at the bases. GI: Soft, nontender, nondistended. Bowel sounds are positive. LABORATORY DATA: White count of 13 which is up, hemoglobin and hematocrit 9 and 29, platelets 226,000. Pre-albumin 2.6. Phosphorus was 2.5. PROBLEM LIST: 1. Complicated Providencia urinary tract infection. He is on Rocephin per Dr. Childs and the PICC team. Will continue to follow. 2. Coagulase-negative Staphylococcus bacteremia. His blood cultures have been clear. 3. Pleural effusion which seems to be getting a little worse. I am going to try some diuretics to see if we can try to pull it off a bit. We may need to expand his coverage to cefepime. 4. Severe dysphagia. He is getting PEG tube feedings. We will continue to follow. DISPOSITION: Pending his clinical status. Hopefully back to long-term care facility soon. cc: Markos Stanley MD
[2019-08-21] MEDS: LASIX IV SCH (19:00)
[2019-08-21] MEDS: ARICEPT PEG SCH (20:33)
--- NOTE | 2019-08-22 01:05 | PULMONOLOGY PROGRESS NOTE ---
DATE: 08/21/2019 SUBJECTIVE: The patient is arousable. He has a cough which is relatively dry. He is in no distress. OBJECTIVE: Vital Signs: Maximum temperature in the last 24 hours 99.8 degrees, blood pressure 117/79, heart rate 87, respiratory rate 17, oxygen saturation 100% on nasal cannula. HEENT: Pupils are equal and reactive. Oropharynx appears clear. Neck: Supple. Chest: Reveals decreased breath sounds right base. Cardiac: S1-S2. Abdomen: Soft. Extremities: Without edema. LABORATORIES: Chest x-ray reveals continued consolidation with right-sided pleural effusion. Sodium 139, potassium 4.1, chloride 102, bicarbonate 29, BUN 17, creatinine 0.7. White blood count 13.59, hemoglobin 9.4, platelet count 226,000. IMPRESSION: A 64-year-old with: 1. Right lower lobe pneumonia. 2. Parapneumonic effusion. 3. Acute hypoxemic respiratory failure. 4. Multiple coagulase-negative staphylococcus with negative echocardiogram. 5. Gram-negative urinary tract infection. 6. Dementia. PLAN: 1. I agree with Dr. Stanley's suggestion to give a diuretic trial. 2. Continue bronchial hygiene. 3. Follow up chest x-ray tomorrow and consider repeat CT scan. The patient may require thoracentesis if he is not having some radiographic improvement. cc: MD Markos Pineda MD
[2019-08-22] MEDS: LASIX IV SCH (02:47)
[2019-08-22] MEDS: DUONEB (A & A) INH SCH ×4 (03:57→23:27)
[2019-08-22] MEDS: NEXIUM PACKET PEG SCH (06:36)
--- NOTE | 2019-08-22 07:15 | Diag Imaging Result Doc PS360 ---
EXAM: CHEST-PORTABLE 08/22/2019 HISTORY: abnormal exam TECHNIQUE: AP portable at 0609 COMMENT: There is a right pleural effusion. There is a PICC line on the right with its tip in the superior vena cava just above the right atrium. There is atelectasis in both lower lobes with obscuration of the right heart border and opacification of the right middle lobe. Compared to 08/21/2019 there has been no significant change. IMPRESSION: Large right pleural effusion. Atelectasis versus pneumonia in the right lower and middle lobes. Electronically signed by Perico Rust 08/22/2019 7:12 AM
[2019-08-22 07:22] LABS: BASO# 0.04 X1000 (0.0-0.2); BASO% 0.3 % (0.0-0.8); EOS# 0.19 X1000 (0.0-0.7); EOS% 1.3 % (0.0-10.0); HEMATOCRIT 33.5 % (42.0-52.0); HEMOGLOBIN 10.6 g/dL (14.0-18.0); IMM GRAN# 0.08 X1000 (0.0-0.04); IMM GRAN% 0.5 % (0.0-0.5); LYMPH# 1.59 X1000 (1.2-3.4); LYMPH% 10.9 % (20.5-51.1); MCH 25.2 PG (27-31); MCHC 31.6 g/dL (33-37); MCV 79.6 FL (81-99); MONO# 1.58 X1000 (0.11-0.59); MONO% 10.8 % (1.7-9.3); MPV 11.2 FL (7.4-10.4); NEUT# 11.12 X1000 (1.4-6.5); NEUT% 76.2 % (42.2-75.2); PLT 265 X1000 (130-400); RBC 4.21 XMIL (4.7-6.1); RDW 13.1 % (11.5-14.5)
[2019-08-22 07:47] LABS: AGAP 10; BUN 23 mg/dL (8-22); CALCIUM 8.9 mg/dL (8.8-10.2); CHLORIDE 98 mmol/L (98-107); COSMO 285; CREATININE 0.8 mg/dL (0.7-1.2); ESTIMATED GFR > 60; GLUCOSE 124 mg/dL (70-104); POTASSIUM 3.8 mmol/L (3.5-5.1); SODIUM 140 mmol/L (136-145); TCO2 32 mmol/L (25-35)
[2019-08-22] MEDS: LOPRESSOR PEG SCH (09:05)
[2019-08-22] MEDS: VALIUM PEG SCH ×3 (09:05→21:07)
[2019-08-22] MEDS: FOLIC ACID PEG SCH (09:05)
[2019-08-22] MEDS: MYCOSTATIN SUSP PO SCH ×4 (09:05→21:07)
[2019-08-22] MEDS: VITAMIN B-1 PEG SCH (09:05)
[2019-08-22] MEDS: KEPPRA PEG SCH ×2 (09:05→21:08)
[2019-08-22] MEDS: SEROQUEL PEG SCH ×2 (09:06→21:08)
[2019-08-22] MEDS: ROCEPHIN 2 GM in NS 50 ML IV SCH (09:06)
[2019-08-22] MEDS: NAMENDA PEG SCH (09:06)
[2019-08-22] MEDS: RISPERDAL M-TAB PEG SCH ×2 (09:06→21:07)
[2019-08-22] MEDS: TENOFOVIR DISOPROXIL FUMARATE PEG SCH (09:06)
[2019-08-22] MEDS: TYLENOL PEG PRN ×2 (15:05→21:08)
[2019-08-22] MEDS: VANCOMYCIN 1,500 MG in NS 250 ML IV SCH (15:46)
[2019-08-22] MEDS: MILK OF MAGNESIA PEG SCH (21:00)
[2019-08-22] MEDS: ARICEPT PEG SCH (21:08)
[2019-08-23] MEDS: MAXIPIME 2 GM in NS 100 ML IV SCH ×3 (02:49→22:05)
[2019-08-23] MEDS: DUONEB (A & A) INH SCH ×4 (03:36→23:30)
[2019-08-23] MEDS: NEXIUM PACKET PEG SCH (05:52)
[2019-08-23 07:49] LABS: INR 1.1; PROTIME 14.4 Seconds (11.0-16.0)
[2019-08-23 07:50] LABS: PTT 32.9 Seconds (22.3-41.8)
--- NOTE | 2019-08-23 07:53 | PROGRESS NOTE ---
DATE: 08/22/2019 SUBJECTIVE: The patient has no major complaints. OBJECTIVE: Vital Signs: Blood pressure 110/62, heart rate 87, respiratory rate 17, temperature was 100.4 degrees with persistent fever. Objective: As described. Cardiovascular: Regular rate and rhythm. Pulmonary: Bilateral breath sounds. Clear to auscultation. GI: Soft, nontender, nondistended. Bowel sounds were positive. LABORATORY DATA: White count is 14, hemoglobin and hematocrit are 10 and 33, platelets 265,000. Basic was normal. PROBLEM LIST: 1. Complicated Providencia. Will continue Rocephin per Dr. Childs' recommendations, but will change to cefepime because of concurrent elevation in white count and fever. 2. Coagulase-negative Staphylococcal bacteremia. Blood cultures are negative. We will continue vancomycin and cefepime. 3. Severe dysphagia. Will continue treatments accordingly, specialized diet, and follow. 4. Disposition. Pending clinical status. We will continue to follow closely. Today, we will add vancomycin and cefepime. cc: Markos Stanley MD
--- NOTE | 2019-08-23 08:00 | Diag Imaging Result Doc PS360 ---
EXAM: CT THORAX W/O CONTRAST INDICATION: f/u pneumonia TECHNIQUE: This exam was performed using automated exposure control, adjustment of mA or kV according to patient size, and/or use of iterative reconstruction technique. COMPARISON: 08/17/2019 FINDINGS: There is a moderate to large size right pleural effusion with significant atelectasis on the right including complete atelectasis of the right lower lobe. However, this is completely stable. There is minimal subsegmental atelectasis in the left upper lobe and at the left lung base that is similar to the previous study. No new consolidation is identified. There are stable borderline and mildly prominent mediastinal and hilar lymph nodes that are nonspecific but probably reactive. There is no cardiomegaly. Limited views of the upper abdomen are essentially unremarkable. There is extensive degenerative arthropathy throughout the thoracic spine. There is no evidence of acute osseous abnormality. IMPRESSION: Moderate to large size right pleural effusion with significant atelectasis on the right that is unchanged as compared to the previous study. Electronically signed by Hossein Lu 08/23/2019 7:58 AM
[2019-08-23 08:06] LABS: AGAP 10; BUN 22 mg/dL (8-22); CALCIUM 8.6 mg/dL (8.8-10.2); CHLORIDE 101 mmol/L (98-107); COSMO 287; CREATININE 0.7 mg/dL (0.7-1.2); ESTIMATED GFR > 60; GLUCOSE 111 mg/dL (70-104); POTASSIUM 4.1 mmol/L (3.5-5.1); SODIUM 142 mmol/L (136-145); TCO2 31 mmol/L (25-35)
[2019-08-23 08:25] LABS: BASO# 0.04 X1000 (0.0-0.2); BASO% 0.3 % (0.0-0.8); EOS# 0.19 X1000 (0.0-0.7); EOS% 1.3 % (0.0-10.0); HEMATOCRIT 32.1 % (42.0-52.0); IMM GRAN# 0.06 X1000 (0.0-0.04); IMM GRAN% 0.4 % (0.0-0.5); LYMPH# 2.39 X1000 (1.2-3.4); LYMPH% 16.7 % (20.5-51.1); MCH 25.1 PG (27-31); MCHC 31.2 g/dL (33-37); MCV 80.5 FL (81-99); MONO# 1.71 X1000 (0.11-0.59); MONO% 11.9 % (1.7-9.3); MPV 11.6 FL (7.4-10.4); NEUT# 9.94 X1000 (1.4-6.5); NEUT% 69.4 % (42.2-75.2); PLT 269 X1000 (130-400); RBC 3.99 XMIL (4.7-6.1); WBC 14.33 X1000 (4.8-10.8)
--- NOTE | 2019-08-23 08:54 | PULMONOLOGY PROGRESS NOTE ---
DATE: 08/22/2019 SUBJECTIVE: The patient is arousable. He has a fair cough effort. OBJECTIVE: Maximum temperature in the last 24 hours is 99.8 degrees, blood pressure 103/67, heart rate 101, respiratory rate 16, oxygen saturation 95%. HEENT: Pupils are equal and reactive. Oropharynx appears clear. Neck is supple. Chest reveals decreased breath sounds right base with positive rhonchi. Cardiac exam: S1, S2. Abdomen is soft. Extremities without edema. LABORATORIES: Chest x-ray continues to reveal pleural effusion on the right with atelectasis/pneumonia at the right lung base. White blood count 14.6, hemoglobin 10.4, platelet count 265,000. IMPRESSION: A 64-year-old with: 1. Right lower lobe pneumonia. 2. Parapneumonic effusion. 3. Increasing leukocytosis. 4. Acute hypoxemic respiratory failure. 5. Three blood cultures positive for coag-negative staph. 6. Gram-negative urinary tract infection. 7. Dementia. PLAN: 1. Repeat CT scan of the thorax tomorrow. 2. Consider/anticipate need for thoracentesis if there is adequate fluid to be aspirated given persistent increase in white blood count, low-grade fevers, and failure to improve. cc: MD Markos Pineda MD
[2019-08-23] MEDS: VANCOMYCIN 1,500 MG in NS 250 ML IV SCH (10:07)
[2019-08-23] MEDS: MYCOSTATIN SUSP PO SCH ×4 (10:09→21:59)
[2019-08-23] MEDS: RISPERDAL M-TAB PEG SCH ×2 (10:09→21:58)
[2019-08-23] MEDS: TENOFOVIR DISOPROXIL FUMARATE PEG SCH (10:09)
[2019-08-23] MEDS: FOLIC ACID PEG SCH (10:10)
[2019-08-23] MEDS: SEROQUEL PEG SCH ×2 (10:10→21:58)
[2019-08-23] MEDS: KEPPRA PEG SCH ×2 (10:10→22:00)
[2019-08-23] MEDS: LOPRESSOR PEG SCH (10:10)
[2019-08-23] MEDS: NAMENDA PEG SCH (10:10)
[2019-08-23] MEDS: VITAMIN B-1 PEG SCH (10:10)
[2019-08-23] MEDS: VALIUM PEG SCH ×3 (10:11→22:05)
--- NOTE | 2019-08-23 16:01 | Diag Imaging Result Doc PS360 ---
US THORACENTESIS W/IMAGE GUIDE - 08/23/2019 INDICATION: pleural effusion TECHNIQUE: Ultrasound right chest COMPARISON: Chest CT 08/23/2019 FINDINGS: Ultrasound of the right chest was performed to localize pleural effusion by the patient's hospitalist. There was overall not very much pleural effusion, either this has shifted or somewhat resorbed. The procedure was not performed. IMPRESSION: Small right pleural effusion was not accessible for thoracentesis. Electronically signed by Alen Gregory 08/23/2019 3:59 PM
[2019-08-23] MEDS: TYLENOL PEG PRN (17:00)
[2019-08-23] MEDS: ARICEPT PEG SCH (21:58)
[2019-08-24] MEDS: VANCOMYCIN 1,500 MG in NS 250 ML IV SCH (03:48)
[2019-08-24] MEDS: DUONEB (A & A) INH SCH ×4 (03:50→22:33)
[2019-08-24] MEDS: TYLENOL PEG PRN ×4 (06:04→21:01)
[2019-08-24] MEDS: NEXIUM PACKET PEG SCH (06:04)
--- NOTE | 2019-08-24 07:56 | PROGRESS NOTE ---
DATE: 08/24/2019 SUBJECTIVE: He is still having shortness of breath, cough. OBJECTIVE: Vital Signs: Blood pressure 120/65, heart rate 103 temperatur. Cardiovascular: Regular rate and rhythm. Pulmonary: Diminished at both bases, right greater than left. LABORATORY DATA: White count 14, hemoglobin and hematocrit are 10 and 32, platelets were low at 269. Basic was normal. PROBLEMS: 1. Complicated urinary tract infection. He is on Rocephin per Dr. Childs. 2. Pleural effusion - could not tap pleural effusion; we scanned the patient multiple times but could not find a pocket of fluid to place needle safely. I had Dr Gregory come and evaluate and he also agreed that there was not enough fluid to tap, pt may need surgery consult and consideration for decortication at discretion of pulmonary. 3.Hx CVA/dementia - stable, on tube feeds and is high aspiration risk, I would consider broadening abx coverage at discretion of ID/Pulmonary consults. 4. Dispo - pt is a [place] resident. cc: MD JEANNE Carrasco
[2019-08-24] MEDS ORDERED: ROCEPHIN 2 GM in NS 50 ML IV SCH (11:15)
[2019-08-24] MEDS: NAMENDA PEG SCH (11:40)
[2019-08-24] MEDS: FOLIC ACID PEG SCH (12:07)
[2019-08-24] MEDS: VITAMIN B-1 PEG SCH (12:07)
[2019-08-24] MEDS: SEROQUEL PEG SCH ×2 (12:08→21:02)
[2019-08-24] MEDS: MYCOSTATIN SUSP PO SCH ×4 (12:08→22:29)
[2019-08-24] MEDS: KEPPRA PEG SCH ×2 (12:08→21:02)
[2019-08-24] MEDS: LOPRESSOR PEG SCH (12:08)
[2019-08-24] MEDS: VALIUM PEG SCH ×3 (12:09→21:02)
[2019-08-24] MEDS: RISPERDAL M-TAB PEG SCH ×2 (12:16→21:02)
--- NOTE | 2019-08-24 12:49 | PROGRESS NOTE ---
DATE: 08/24/2019 SUBJECTIVE: The patient reports feeling fine. According to nursing staff, he has been spiking a fever. OBJECTIVE: Vital Signs: Temperature 98.0 degrees, heart rate 95, respiratory 16, blood pressure 120/65, O2 saturation 94% on 2 L nasal cannula. General: This is a 64-year-old male, lying in bed, in no acute distress. Cardiovascular: S1, S2 heard. No murmurs, gallops, or rubs. Regular rate and rhythm. Respiratory: Coarse breath sounds noted in both pulmonary bases. Patient is not using any accessory muscles or having work of breathing. Abdomen: Soft. Nontender to palpation. Bowel sounds present. No organomegaly. No signs of suprapubic tenderness. Neurological: Patient is a little bit slow but answered basic questions. Moves 4 extremities. LABORATORY DATA: White cell count 14.33, hemoglobin 10.0, hematocrit 32.1, platelets 269,000, with normal BMP. ASSESSMENT AND PLAN: 1. Coagulase-negative staphylococcal bacteremia. Just 1 out of 2 blood cultures are positive for coagulase-negative staphylococcal that could be considered a contaminant. We will ask Dr. Childs to see what we can do for this patient. Currently this patient is on vancomycin and cefepime. We will continue to monitor this patient closely. 2. Providencia stuartii urinary tract infection. We will continue with cefepime. 3. Severe dysphagia. We will continue with current diet. 4. Acute hypoxemic respiratory failure. Patient requiring 2 L of oxygen by nasal cannula. CT of the chest done yesterday showed moderate to large sized right pleural effusion with significant atelectasis on the right that is unchanged in comparing with previous studies. At this point, we tried to do a thoracentesis but it is kind of confusing that on the CT reports, they said a large pleural effusion but thoracentesis report said that there was not enough fluid to remove. In any case, I am planning to do an x-ray, PA and lateral, and see what it shows. 5. Disposition pending clinical status. 6. We will transfer this patient to the PVC unit. cc: MD Markos Lunsford MD
--- NOTE | 2019-08-24 14:23 | Diag Imaging Result Doc PS360 ---
EXAM: CT ABD/PELVIS W/PO AND IV CON 08/24/2019 HISTORY: leukocytosis TECHNIQUE: This exam was performed using automated exposure control, adjustment of mA or kV according to patient size, and/or use of iterative reconstruction technique. COMMENT: The current study is compared with 08/13/2019. There is a greater degree of consolidation of the visualized portion of the right lower lobe than on the previous examination. There is pleural fluid particularly in the subphrenic location on the right. There is some slight enhancement of the pleural surfaces which was not apparent on the previous study. The possibility of empyema cannot be excluded. There is a gastrostomy tube. The liver is unremarkable. There are no gallstones. The spleen is not enlarged. The adrenal glands are not enlarged. The pancreas is unremarkable. There are multiple stones present in the lower poles of both collecting systems. This was also apparent on the previous study. The aorta is not distended. The mesenteric and renal arteries are patent. There is no evidence of significant adenopathy or bowel obstruction. There is contrast in the ascending colon. There are some scattered colonic diverticula. Pelvis: The appendix is normal in caliber. There is a fairly large amount of stool in the rectosigmoid colon. There is a fat-containing umbilical hernia. There is no evidence of free fluid. The urinary bladder is not distended. There is a fat-containing left inguinal hernia. There is extensive arterial calcification. There are degenerative disc changes at L5-S1. No acute bony abnormalities are present. IMPRESSION: Worsened right lower lobe pneumonia and pleural fluid collection. No evidence of acute disease in the abdomen or pelvis. Electronically signed by Perico Rust 08/24/2019 2:21 PM
--- NOTE | 2019-08-24 14:25 | Diag Imaging Result Doc PS360 ---
EXAM: CHEST-2 VIEWS 08/24/2019 HISTORY: pleural effusion TECHNIQUE: AP upright sitting and lateral at 1414 COMMENT: There is a large right pleural effusion which was also present on 08/22/2019. The inspiration is slightly better than on the previous study. There is a PICC line on the right with its tip just above the right atrium. IMPRESSION: Right pleural effusion. Atelectasis versus pneumonia right lower lobe. Electronically signed by Perico Rust 08/24/2019 2:23 PM
--- NOTE | 2019-08-24 16:59 | INFECTIOUS DISEASE PROGRESS NO ---
DATE: 08/24/2019 PRESENT ILLNESS: The patient has leukocytosis. He does have a Providencia urinary tract infection. However, it has been treated with appropriate antibiotics and the patient continues to have a leukocytosis. MEDICATIONS: The patient recently had been on vancomycin and cefepime. PHYSICAL EXAMINATION: Vital Signs: Temperature is 98 degrees, pulse 95, respirations 16, blood pressure is 120/65. General: This is a chronically ill-appearing elderly male. He is in no acute distress. Head, eyes, ears, nose, and throat: No drainage from the nose or ears. I did not see any white patches in his mouth. Neck: No apparent pain with moving his neck. Lungs: Decreased breath sounds on the right side; the left side was clear. Cardiovascular: Heart rate is regular Abdomen: Soft and not tender. There is a G-tube in place. There is no purulent drainage or bleeding. Neurologic: The patient is awake. He is in no acute distress. He does not have a tremor. LAB AND X-RAY: CBC today shows a white count of 14,330, hemoglobin 10, platelet count 269,000. Creatinine is 0.7. GFR is greater than 60. Blood cultures are negative. Urine culture grew Providencia. ASSESSMENT AND PLAN: The patient has a Providencia urinary tract infection. I am going to put him back on Rocephin. He will need 7 more days to complete a 2-week treatment course. I have gone ahead and ordered a CT scan of the abdomen and pelvis. The patient on CT scan had what was said to be a large pleural effusion. However, when the patient was sent down to do it, done Dr. Gregory using ultrasound could not find any fluid that he could aspirate in the chest. COMORBIDITIES: The patient has a seizure disorder. He has anemia of chronic disease. He has had a prior stroke. He also has dementia and epilepsy, and has a history of being an alcoholic. He also has a history of cigarette smoking and using illicit drugs. cc: MD Markos Moreno MD
[2019-08-24] MEDS ORDERED: ZOFRAN IV PRN (17:11)
[2019-08-24] MEDS: FLAGYL 500 MG/NS 500 MG/100 ML IVPB IV SCH ×2 (18:04→21:02)
[2019-08-24] MEDS: MAXIPIME 2 GM in NS 100 ML IV SCH (18:04)
[2019-08-24] MEDS: ARICEPT PEG SCH (21:02)
[2019-08-24] MEDS: MILK OF MAGNESIA PEG SCH (21:02)
[2019-08-24] MEDS: TENOFOVIR DISOPROXIL FUMARATE PEG SCH (21:02)
[2019-08-25] MEDS: TYLENOL PEG PRN ×3 (04:08→16:54)
[2019-08-25] MEDS: DUONEB (A & A) INH SCH ×4 (04:18→21:12)
[2019-08-25] MEDS: MAXIPIME 2 GM in NS 100 ML IV SCH ×2 (04:40→16:07)
[2019-08-25] MEDS: FLAGYL 500 MG/NS 500 MG/100 ML IVPB IV SCH ×4 (04:40→21:55)
[2019-08-25] MEDS: NEXIUM PACKET PEG SCH (06:11)
[2019-08-25 06:24] LABS: AGAP 8; ALBUMIN 2.6 g/dL (3.5-5.0); BUN 19 mg/dL (8-22); CALCIUM 8.4 mg/dL (8.8-10.2); CHLORIDE 103 mmol/L (98-107); COSMO 283; CREATININE 0.8 mg/dL (0.7-1.2); ESTIMATED GFR > 60; GLUCOSE 116 mg/dL (70-104); PHOSPHORUS 2.2 mg/dL (2.7-4.5); POTASSIUM 3.9 mmol/L (3.5-5.1); SODIUM 140 mmol/L (136-145); TCO2 29 mmol/L (25-35)
[2019-08-25] MEDS: VALIUM PEG SCH ×3 (08:54→20:07)
[2019-08-25] MEDS: NAMENDA PEG SCH (08:54)
[2019-08-25] MEDS: VITAMIN B-1 PEG SCH (08:54)
[2019-08-25] MEDS: LOPRESSOR PEG SCH (08:54)
[2019-08-25] MEDS: TENOFOVIR DISOPROXIL FUMARATE PEG SCH (08:55)
[2019-08-25] MEDS: SEROQUEL PEG SCH ×2 (08:55→20:07)
[2019-08-25] MEDS: KEPPRA PEG SCH ×2 (08:56→20:10)
[2019-08-25] MEDS: FOLIC ACID PEG SCH (08:56)
[2019-08-25] MEDS: RISPERDAL M-TAB PEG SCH ×2 (08:56→20:06)
[2019-08-25] MEDS: MYCOSTATIN SUSP PO SCH ×4 (08:56→20:07)
[2019-08-25 09:09] LABS: BASO# 0.04 X1000 (0.0-0.2); BASO% 0.3 % (0.0-0.8); EOS# 0.06 X1000 (0.0-0.7); EOS% 0.4 % (0.0-10.0); IMM GRAN# 0.12 X1000 (0.0-0.04); IMM GRAN% 0.8 % (0.0-0.5); LYMPH# 1.81 X1000 (1.2-3.4); LYMPH% 11.7 % (20.5-51.1); MCV 80.6 FL (81-99); MONO# 2.22 X1000 (0.11-0.59); MONO% 14.3 % (1.7-9.3); MPV 11.5 FL (7.4-10.4); NEUT# 11.23 X1000 (1.4-6.5); NEUT% 72.5 % (42.2-75.2); PLT 299 X1000 (130-400); WBC 15.48 X1000 (4.8-10.8)
[2019-08-25 09:23] LABS: EOS 1 % (1-10); LYMPHS 13 % (21-51); MONO 5 % (1-9); SEGS 81 % (42-75)
[2019-08-25] MEDS ORDERED: SODIUM PHOSPHATE 35 MMOL in NS 250 ML IV ONE (09:30)
--- NOTE | 2019-08-25 11:05 | PROGRESS NOTE ---
DATE: 08/25/2019 SUBJECTIVE: The patient looks more sleepy and lethargic to me. He answered to verbal stimuli though. He continues to spike fever. OBJECTIVE: Vital Signs: Temperature 100.8 degrees, heart rate of 91, respiratory rate 16, blood pressure 111/65, O2 saturation 91% on 5 liters nasal cannula. General Examination: This is a chronically ill-appearing, 64-year-old, male lying in bed, sleepy. Cardiovascular exam: S1, S2 heard. No murmurs, gallops, or rubs. Regular rate and rhythm. Respiratory exam: Coarse breath sounds noted in both pulmonary bases. The patient is not using any accessory muscles or having work of breathing. Abdomen: Nontender to palpation. Bowel sounds present. No organomegaly. No signs of suprapubic tenderness. Neurological Exam: The patient is a little more lethargic in comparing with yesterday, but answered basic questions. Moves 4 extremities. LABORATORY DATA: White cell count 15.48, hemoglobin 9.0, hematocrit 29.0, platelets 299. Normal BMP. ASSESSMENT AND PLAN: 1. Acute hypoxemic respiratory failure. This condition is getting worse. In the last few days, he has been requiring 2 liters of oxygen by nasal cannula and requiring now 4 and 5 liters. He does not look in any respiratory distress though. There is a CT of the chest that shows [id number] pleural effusion. We have repeated an x-ray that repeats moderate pleural effusion. We tried to do thoracentesis, but apparently they were not able to find any pleural fluid to be drained. In any case, planning or at least try to do that thoracentesis tomorrow morning. 2. Providencia stuartii urinary tract infection. We will continue with ceftriaxone 2 grams intravenous every [address] Childs' recommendation. 3. Severe dysphagia. Apparently he is eating better. We will continue to monitor. 4. Dementia. We will continue to monitor. 5. Disposition: We will continue with current antibiotics directed by Dr. Childs. We will try to do another thoracentesis tomorrow, and we will go from there. cc: MD Markos Lunsford MD
[2019-08-25] MEDS: ARICEPT PEG SCH (20:07)
[2019-08-26] MEDS: TYLENOL PEG PRN ×2 (00:40→08:22)
[2019-08-26] MEDS: DUONEB (A & A) INH SCH ×4 (03:49→22:47)
[2019-08-26] MEDS: MAXIPIME 2 GM in NS 100 ML IV SCH (05:21)
[2019-08-26] MEDS: FLAGYL 500 MG/NS 500 MG/100 ML IVPB IV SCH (05:21)
[2019-08-26] MEDS: NEXIUM PACKET PEG SCH ×2 (05:52→06:29)
[2019-08-26 06:22] LABS: BASO# 0.09 X1000 (0.0-0.2); BASO% 0.6 % (0.0-0.8); EOS# 0.04 X1000 (0.0-0.7); EOS% 0.3 % (0.0-10.0); HEMATOCRIT 30.8 % (42.0-52.0); HEMOGLOBIN 9.7 g/dL (14.0-18.0); IMM GRAN# 0.16 X1000 (0.0-0.04); IMM GRAN% 1.1 % (0.0-0.5); LYMPH# 2.37 X1000 (1.2-3.4); LYMPH% 16.4 % (20.5-51.1); MCH 25.2 PG (27-31); MCHC 31.5 g/dL (33-37); MONO# 2.13 X1000 (0.11-0.59); MONO% 14.7 % (1.7-9.3); MPV 11.3 FL (7.4-10.4); NEUT% 66.9 % (42.2-75.2); PLT 316 X1000 (130-400); RBC 3.85 XMIL (4.7-6.1); RDW 13.2 % (11.5-14.5); WBC 14.49 X1000 (4.8-10.8)
[2019-08-26] MEDS: LOPRESSOR PEG SCH (08:00)
[2019-08-26] MEDS: NAMENDA PEG SCH (08:00)
[2019-08-26] MEDS: KEPPRA PEG SCH ×2 (08:00→22:04)
[2019-08-26] MEDS: RISPERDAL M-TAB PEG SCH ×2 (08:00→22:03)
[2019-08-26] MEDS: VALIUM PEG SCH ×3 (08:01→22:04)
[2019-08-26] MEDS: VITAMIN B-1 PEG SCH (08:01)
[2019-08-26] MEDS: TENOFOVIR DISOPROXIL FUMARATE PEG SCH (08:01)
[2019-08-26] MEDS: FOLIC ACID PEG SCH (08:01)
[2019-08-26] MEDS: SEROQUEL PEG SCH ×2 (08:01→22:04)
[2019-08-26] MEDS: MYCOSTATIN SUSP PO SCH ×4 (08:16→22:03)
--- NOTE | 2019-08-26 10:19 | INFECTIOUS DISEASE PROGRESS NO ---
DATE: 08/26/2019 PRESENT ILLNESS: Patient has a leukocytosis. He also has a Providencia urinary tract infection. However, I have been treating the urinary tract infection and the patient continues to have leukocytosis and last night he started having a fever. The patient does have a right lower lobe pneumonia as seen on CT scan of the abdomen and pelvis, there is an associated pleural effusion. MEDICATION: Patient is receiving cefepime and Flagyl. PHYSICAL EXAMINATION: Vital Signs: Temperature is 101.5 degrees, pulse 98, respirations 18, blood pressure 124/67. General: This is a chronically ill-appearing elderly male. He is in no acute distress. Head, eyes, ears, nose, and throat: He does not have any drainage coming from his nose or ears. I did not see any white patches in his mouth. Neck: No stiffness. Lungs: There were expiratory wheezes bilaterally. Cardiovascular: Heart rate is regular. Abdomen: Soft and nontender. A G-tube is in place. The site is not purulent or bleeding. Extremities: The patient has a PICC in the right arm. That site also is not purulent or bleeding. Neurologic: The patient is awake. He did follow request to move his extremities but when he talked, I cannot understand what he is saying. There is no tremor. LAB AND RADIOLOGY: CBC-WBC 14.49, hgb 9.7, platelets 316K. No other lab or radiology for today. ASSESSMENT AND PLAN: The patient has a Providencia urinary tract infection. He also has a worsening right lower lobe pneumonia with an associated pleural effusion. My plan is to discontinue cefepime and Flagyl and put the patient on a combination of Zyvox and meropenem. COMORBIDITIES: The patient has a seizure disorder. He also has anemia of chronic disease. He has had a prior stroke. He also has dementia and a history of alcoholism. The patient also smoked cigarettes and used illicit drugs. cc: MD Markos Moreno MD MTDD
--- NOTE | 2019-08-26 10:29 | PROGRESS NOTE ---
DATE: 08/26/2019 SUBJECTIVE: Patient continues to have fever. He seems to be more lethargic. Does not answer any questions appropriately. He just mumbles some unintelligible words. OBJECTIVE: Vital Signs: Temperature 101.5 degrees, heart rate 90, respiratory rate 18, blood pressure 124/67, O2 saturation 91% on 3.5 L of oxygen by nasal cannula. General Examination: This is a chronically ill-appearing, 64-year-old, male, lying in bed in no acute distress, very sleepy. Cardiovascular exam: S1, S2 heard. Tachycardic. No murmurs, gallops, or rubs noted. Respiratory exam: Coarse breath sounds in both pulmonary bases. Patient not using any accessory muscles or having work of breathing. Abdomen: Soft, nontender to palpation. Bowel sounds present. No organomegaly. No signs of superimposed tenderness. Neurological exam: Patient is a little bit more lethargic comparing with yesterday. Does not answer any questions. LABORATORY DATA: Reviewed. ASSESSMENT AND PLAN: 1. Acute hypoxemic respiratory failure secondary to right lower lobe pneumonia. The patient has been evaluated by Dr. Childs. Antibiotics have been changed to Zyvox and meropenem. Report said that he had a right large pleural effusion. We will try to do thoracentesis today, but there is no staff to do it today. We will continue to monitor. 2. Providencia stuartii urinary tract infection. We will continue with current medication mentioned above--meropenem. 3. Dysphagia. We will continue to monitor. 4. Advanced dementia. Patient is on home medication. We will continue with the same management. 5. Disposition: We will continue with current antibiotics ordered by Dr. Childs today. cc: MD Markos Lunsford MD
--- NOTE | 2019-08-26 10:35 | PROVIDER PROGRESS NOTE ---
Progress Note Pulmonary Additional note: On previous reviews of CT imaging, I understand why US showed not much to draw from pleural fluid. There will be a re-attempt next week as I understood from Hospitalist note. Will monitor with you.
[2019-08-26] MEDS: MERREM 1 GM in NS 50 ML IV SCH ×3 (10:51→17:44)
[2019-08-26] MEDS: ZYVOX 600 MG/D5W 600 MG/300 ML IVPB IV SCH ×2 (10:51→22:10)
[2019-08-26 11:09] LABS: ALLEN TEST YES; BE 7.4 mmoll (-3.0-3.0); BLOOD TYPE ARTERIAL; HCO3-(ACT) 30.6 mmoll (20.0-26.0); METHB 1.4 % (0.0-1.5); O2(CT) 12.1 mL/dL (15.0-23.0); O2HB 91.3 % (95.0-99.0); PCO2(98.6) 45 mmHg (35-45); PO2(98.6) 58 mmHg (60-100); SAMPLE BLOOD; SAO2 94.6 % (95.0-100.0); THB 9.4 g/dL (11.5-17.4); pH(98.6) 7.46 (7.35-7.45)
[2019-08-26 11:10] LABS: MODALITY CANNULA
[2019-08-26] MEDS: MILK OF MAGNESIA PEG SCH (22:03)
[2019-08-26] MEDS: ARICEPT PEG SCH (22:03)
[2019-08-27] MEDS: MERREM 1 GM in NS 50 ML IV SCH ×4 (01:48→17:33)
[2019-08-27] MEDS: DUONEB (A & A) INH SCH ×5 (03:54→20:59)
[2019-08-27 05:15] LABS: ALLEN TEST YES; BE 9.6 mmoll (-3.0-3.0); BLOOD TYPE ARTERIAL; HCO3-(ACT) 32.3 mmoll (20.0-26.0); O2(CT) 11.9 mL/dL (15.0-23.0); O2HB 90.7 % (95.0-99.0); PCO2(98.6) 42 mmHg (35-45); PO2(98.6) 55 mmHg (60-100); SAMPLE BLOOD; SAO2 93.8 % (95.0-100.0); THB 9.3 g/dL (11.5-17.4); pH(98.6) 7.51 (7.35-7.45)
[2019-08-27 05:17] LABS: MODALITY CANNULA
[2019-08-27] MEDS: NEXIUM PACKET PEG SCH (06:02)
[2019-08-27 06:59] LABS: BASO# 0.06 X1000 (0.0-0.2); BASO% 0.6 % (0.0-0.8); EOS# 0.13 X1000 (0.0-0.7); EOS% 1.2 % (0.0-10.0); HEMATOCRIT 29.2 % (42.0-52.0); IMM GRAN# 0.14 X1000 (0.0-0.04); IMM GRAN% 1.3 % (0.0-0.5); LYMPH# 1.94 X1000 (1.2-3.4); LYMPH% 18.3 % (20.5-51.1); MCH 24.9 PG (27-31); MCHC 30.8 g/dL (33-37); MCV 80.7 FL (81-99); MONO# 1.56 X1000 (0.11-0.59); MONO% 14.7 % (1.7-9.3); MPV 11.1 FL (7.4-10.4); NEUT# 6.76 X1000 (1.4-6.5); NEUT% 63.9 % (42.2-75.2); PLT 344 X1000 (130-400); RBC 3.62 XMIL (4.7-6.1); RDW 13.3 % (11.5-14.5); WBC 10.59 X1000 (4.8-10.8)
[2019-08-27 07:07] LABS: AGAP 11; ALBUMIN 2.3 g/dL (3.5-5.0); BUN 15 mg/dL (8-22); CALCIUM 8.2 mg/dL (8.8-10.2); CHLORIDE 103 mmol/L (98-107); COSMO 282; CREATININE 0.8 mg/dL (0.7-1.2); ESTIMATED GFR > 60; GLUCOSE 90 mg/dL (70-104); MAGNESIUM 1.9 mg/dL (1.5-2.7); POTASSIUM 4.1 mmol/L (3.5-5.1); SODIUM 141 mmol/L (136-145); TCO2 27 mmol/L (25-35)
--- NOTE | 2019-08-27 08:09 | Diag Imaging Result Doc PS360 ---
EXAM: CHEST-1 VIEW - 08/27/2019 HISTORY: SOB TECHNIQUE: Portable chest one view COMPARISON: 08/14/2019 FINDINGS: Inspiration is mildly shallow. There is a large right pleural effusion, which may be increased mildly. Left lung appears clear except for mild basilar subsegmental atelectasis. There is no pneumothorax identified. PICC remains in place. IMPRESSION: Large right pleural effusion, which may have increased mildly. Electronically signed by Ty Beckman 08/27/2019 8:06 AM
[2019-08-27] MEDS: ZYVOX 600 MG/D5W 600 MG/300 ML IVPB IV SCH ×3 (08:38→21:32)
[2019-08-27] MEDS: RISPERDAL M-TAB PEG SCH ×2 (08:39→21:31)
[2019-08-27] MEDS: MYCOSTATIN SUSP PO SCH ×4 (08:39→21:31)
[2019-08-27] MEDS: VALIUM PEG SCH ×3 (08:39→21:31)
[2019-08-27] MEDS: SEROQUEL PEG SCH ×2 (08:40→21:31)
[2019-08-27] MEDS: KEPPRA PEG SCH ×2 (08:40→21:31)
[2019-08-27] MEDS: NAMENDA PEG SCH (08:40)
[2019-08-27] MEDS: LOPRESSOR PEG SCH (08:40)
[2019-08-27] MEDS: VITAMIN B-1 PEG SCH (08:40)
[2019-08-27] MEDS: FOLIC ACID PEG SCH (08:40)
[2019-08-27] MEDS: TENOFOVIR DISOPROXIL FUMARATE PEG SCH (08:41)
[2019-08-27 08:46] LABS: EOS 1 % (1-10); LYMPHS 18 % (21-51); MONO 15 % (1-9); SEGS 66 % (42-75)
[2019-08-27 08:47] LABS: ANISOCYTOSIS 2+; LARGE PLATELETS OCCASIONAL; MICROCYTOSIS 2+
[2019-08-27] MEDS ORDERED: SODIUM PHOSPHATE 40 MMOL in NS 250 ML IV ONE (09:04)
--- NOTE | 2019-08-27 11:20 | PROGRESS NOTE ---
DATE: 08/27/2019 SUBJECTIVE: Patient is a little bit more awake today. This morning he spiked a fever to 100.4 degrees. So far his blood cultures are negative 48 hours after. He answered very basic questions. OBJECTIVE: Vital Signs: Temperature 99.9 degrees, heart rate 104, respiratory rate 27, blood pressure 139/95, O2 saturation 93% on 4 L nasal cannula. General: This is a chronically ill- appearing, 64-year-old male, lying in bed, in no acute distress. Cardiovascular: S1, S2 heard. No murmurs, gallops, or rubs. Regular rate and rhythm. Respiratory: Coarse breath sounds noted in both pulmonary bases and absent breath sounds in the right pulmonary base. Patient is not using any accessory muscles or having work of breathing. Abdomen: Soft, nontender to palpation. Bowel sounds present. No organomegaly. No signs of suprapubic tenderness. Neurological: Patient is a little bit more awake today. Still somewhat lethargic but does answer very basic questions. LABORATORY DATA: The white cell count is 10.59, hemoglobin 9.0, hematocrit 29.2, platelets 344,000. BMP is okay with ABG that shows pH 7.51 with pCO2 of 42, PO2 55. ASSESSMENT AND PLAN: 1. Acute hypoxemic respiratory failure secondary to right lower lobe pneumonia. The patient has been started on Zyvox and meropenem yesterday because he was spiking fever. Still is spiking fever though but not as frequent as he was doing. Dr. Childs from Infectious Disease is following this patient. We will continue to monitor this patient closely. 2. Right large pleural effusion. We tried to do thoracentesis on this patient considering that he had a CT of the chest and also an x-ray that shows a large pleural effusion, but interventional radiologist was not able to do it. At this point, I am planning to repeat an x- ray tomorrow and if there is still a good amount of fluids, we will try paracentesis tomorrow. 3. Providencia stuartii urinary tract infection. We will continue with current antibiotics. 4. Dysphagia. We will continue to monitor. 5. Advanced dementia. Patient is on home medications. We will continue with the same management. 6. Disposition. At this point, we will continue with current management. cc: MD Markos Lunsford, MD
[2019-08-27] MEDS: ARICEPT PEG SCH (21:31)
[2019-08-27] MEDS ORDERED: CATHFLO IV ONE (22:45)
[2019-08-27] MEDS ORDERED: STERILE WATER INJ. INJ ONE (22:50)
[2019-08-28] MEDS: MERREM 1 GM in NS 50 ML IV SCH ×4 (02:11→17:15)
[2019-08-28] MEDS: DUONEB (A & A) INH SCH ×4 (03:07→21:17)
[2019-08-28] MEDS: TYLENOL PEG PRN (03:46)
--- NOTE | 2019-08-28 04:25 | EKG Report ---
Test Performed on : 08/28/2019 03:01:42 AM Test Reason : heart rate Blood Pressure : / mmHG Vent. Rate : 144 BPM Atrial Rate : 144 BPM P-R Int : 000 ms QRS Dur : 070 ms QT Int : 298 ms P-R-T Axes : 000 -36 041 degrees QTc Int : 461 ms Critical Test Result: High HR Supraventricular tachycardia. Left axis deviation Abnormal ECG When compared with ECG of 16-AUG-2019 22:12, (Unconfirmed) Vent. rate has increased BY 51 BPM Nonspecific T wave abnormality no longer evident in Inferior leads Confirmed by Toro ARMAS, Anjel ([id number]) on 08/30/2019 8:51:19 AM
[2019-08-28 05:47] LABS: BASO# 0.04 X1000 (0.0-0.2); BASO% 0.6 % (0.0-0.8); EOS% 2.8 % (0.0-10.0); HEMATOCRIT 30.1 % (42.0-52.0); HEMOGLOBIN 9.5 g/dL (14.0-18.0); IMM GRAN# 0.11 X1000 (0.0-0.04); IMM GRAN% 1.5 % (0.0-0.5); LYMPH# 1.85 X1000 (1.2-3.4); LYMPH% 25.8 % (20.5-51.1); MCHC 31.6 g/dL (33-37); MCV 79.2 FL (81-99); MONO# 0.76 X1000 (0.11-0.59); MONO% 10.6 % (1.7-9.3); MPV 10.9 FL (7.4-10.4); NEUT# 4.21 X1000 (1.4-6.5); NEUT% 58.7 % (42.2-75.2); PLT 362 X1000 (130-400); RDW 13.1 % (11.5-14.5); WBC 7.17 X1000 (4.8-10.8)
[2019-08-28] MEDS: NEXIUM PACKET PEG SCH (06:05)
[2019-08-28] MEDS: LOPRESSOR PEG SCH (06:05)
[2019-08-28 06:16] LABS: AGAP 9; ALBUMIN 2.5 g/dL (3.5-5.0); BUN 13 mg/dL (8-22); CALCIUM 8.1 mg/dL (8.8-10.2); CHLORIDE 100 mmol/L (98-107); COSMO 272; CREATININE 0.7 mg/dL (0.7-1.2); ESTIMATED GFR > 60; GLUCOSE 96 mg/dL (70-104); MAGNESIUM 1.8 mg/dL (1.5-2.7); PHOSPHORUS 2.6 mg/dL (2.7-4.5); POTASSIUM 3.9 mmol/L (3.5-5.1); SODIUM 136 mmol/L (136-145); TCO2 27 mmol/L (25-35)
[2019-08-28] MEDS: MYCOSTATIN SUSP PO SCH ×4 (08:54→21:44)
[2019-08-28] MEDS: ZYVOX 600 MG/D5W 600 MG/300 ML IVPB IV SCH ×3 (08:54→21:50)
[2019-08-28] MEDS: RISPERDAL M-TAB PEG SCH ×2 (08:55→21:44)
[2019-08-28] MEDS: VITAMIN B-1 PEG SCH (08:55)
[2019-08-28] MEDS: KEPPRA PEG SCH ×2 (08:55→21:44)
[2019-08-28] MEDS: NAMENDA PEG SCH (08:55)
[2019-08-28] MEDS: SEROQUEL PEG SCH ×2 (08:55→21:43)
[2019-08-28] MEDS: FOLIC ACID PEG SCH (08:55)
[2019-08-28] MEDS: VALIUM PEG SCH ×3 (08:56→21:44)
[2019-08-28] MEDS: TENOFOVIR DISOPROXIL FUMARATE PEG SCH (08:56)
--- NOTE | 2019-08-28 11:06 | Diag Imaging Result Doc PS360 ---
EXAM: CHEST-2 VIEWS HISTORY: right pleural effusion. TECHNIQUE: Two views COMPARISON: 08/27/2019 FINDINGS: There is a moderate to large right pleural effusion. This is similar to the prior exam. There is atelectasis in the right lung. No change in the right portacatheter. Left lung remains well expanded and clear. IMPRESSION: Stable chest Electronically signed by Mike Tijerina 08/28/2019 11:04 AM
--- NOTE | 2019-08-28 14:20 | PROGRESS NOTE ---
DATE: 08/28/2019 SUBJECTIVE: The patient is still hungry. No major other issues. OBJECTIVE: Vital Signs: Blood pressure 110/73, heart rate 84, respiratory 18, temperature 98 degrees, 94% on 3 L. Cardiovascular: Regular rate and rhythm. Pulmonary: Bilateral breath sounds. Clear to auscultation. Gastrointestinal: Soft, nontender, nondistended. Bowel sounds are positive. LABORATORY STUDIES: White count 7, hemoglobin and hematocrit are 9 and 30, platelets 362,000. Basic was okay. Albumin was 2.5. PROBLEM LIST: 1. Acute hypoxic respiratory failure due to worsening pneumonia. He is on broad spectrum antibiotics. Dr. Childs and Dr. Weiss following or Pulmonary. He is now on Zyvox and meropenem, which should cover most entities including MRSA Pseudomonas and aspiration type pneumonia, but his x-rays do not look much improved. We will continue on pulmonary toilet. I do not think there is enough fluid to tap. I do not think this is a pleural effusion issue as much as repeating his chest CT at the discretion of Pulmonary. 2. Effusion versus pneumonia. We will continue pulmonary toilet and antibiotics. 3. Providencia stuartii urinary tract infection. He is on Merrem. We will continue to monitor. 4. Severe dysphagia due to dementia and stroke. We will hold him NPO for now until we know he is not worsening his pneumonia with chronic aspiration. DISPOSITION: [facility] is stable to [facility]. cc: Markos Stanley MD
[2019-08-28] MEDS: MUCOMYST 20% INH SCH ×2 (15:13→21:17)
[2019-08-28] MEDS: ARICEPT PEG SCH (21:43)
[2019-08-29] MEDS: MERREM 1 GM in NS 50 ML IV SCH ×3 (02:43→17:51)
[2019-08-29] MEDS: DUONEB (A & A) INH SCH ×4 (03:34→22:40)
[2019-08-29] MEDS: NEXIUM PACKET PEG SCH (06:08)
[2019-08-29 06:21] LABS: BASO# 0.03 X1000 (0.0-0.2); BASO% 0.4 % (0.0-0.8); EOS# 0.24 X1000 (0.0-0.7); EOS% 3.1 % (0.0-10.0); HEMOGLOBIN 8.6 g/dL (14.0-18.0); IMM GRAN# 0.13 X1000 (0.0-0.04); IMM GRAN% 1.7 % (0.0-0.5); LYMPH# 1.74 X1000 (1.2-3.4); LYMPH% 22.3 % (20.5-51.1); MCH 24.6 PG (27-31); MCHC 30.7 g/dL (33-37); MONO# 0.92 X1000 (0.11-0.59); MONO% 11.8 % (1.7-9.3); MPV 10.7 FL (7.4-10.4); NEUT# 4.74 X1000 (1.4-6.5); NEUT% 60.7 % (42.2-75.2); PLT 341 X1000 (130-400); RDW 13.3 % (11.5-14.5)
[2019-08-29 06:39] LABS: AGAP 7; BUN 13 mg/dL (8-22); CALCIUM 8.3 mg/dL (8.8-10.2); CHLORIDE 101 mmol/L (98-107); COSMO 277; CREATININE 0.6 mg/dL (0.7-1.2); ESTIMATED GFR > 60; GLUCOSE 92 mg/dL (70-104); POTASSIUM 4.4 mmol/L (3.5-5.1); SODIUM 139 mmol/L (136-145); TCO2 31 mmol/L (25-35)
[2019-08-29] MEDS: MUCOMYST 20% INH SCH ×2 (07:52→22:39)
[2019-08-29] MEDS: VALIUM PEG SCH ×3 (08:22→20:16)
[2019-08-29] MEDS: FOLIC ACID PEG SCH (08:22)
[2019-08-29] MEDS: SEROQUEL PEG SCH ×2 (08:22→20:16)
[2019-08-29] MEDS: NAMENDA PEG SCH (08:22)
[2019-08-29] MEDS: MYCOSTATIN SUSP PO SCH ×4 (08:23→20:16)
[2019-08-29] MEDS: VITAMIN B-1 PEG SCH (08:23)
[2019-08-29] MEDS: TENOFOVIR DISOPROXIL FUMARATE PEG SCH (08:23)
[2019-08-29] MEDS: LOPRESSOR PEG SCH (08:23)
[2019-08-29] MEDS: KEPPRA PEG SCH ×2 (08:23→20:16)
[2019-08-29] MEDS: RISPERDAL M-TAB PEG SCH ×2 (08:23→20:16)
[2019-08-29] MEDS: ZYVOX 600 MG/D5W 600 MG/300 ML IVPB IV SCH ×2 (10:34→23:09)
--- NOTE | 2019-08-29 13:04 | Diag Imaging Result Doc PS360 ---
CHEST-PORTABLE - 08/29/2019 INDICATION: possible aspiration COMPARISON: 08/28/2019 FINDINGS: Stable right PICC line in good position. There is a small right pleural effusion. There is consolidation of the right lung base. Lung volumes are severely low. No new infiltrates. Heart size is normal. IMPRESSION: Severely low lung volumes. Electronically signed by Alen Gregory 08/29/2019 1:02 PM
--- NOTE | 2019-08-29 13:47 | Diag Imaging Result Doc PS360 ---
EXAM: US CHEST W/O MEDIASTINUM(LTD) INDICATION: large pleural effusion as per CT chest and CXR TECHNIQUE: COMPARISON: None. FINDINGS: Note that this study was originally ordered as an ultrasound-guided right thoracentesis. However, very little free flowing fluid was identified on the preprocedural scan. The amount appeared to be too small for safe drainage. As such, the procedure was canceled. IMPRESSION: Only a small amount of complex fluid identified in the right pleural space that was deemed too small for safe drainage. Electronically signed by Hossein Lu 08/29/2019 1:45 PM
--- NOTE | 2019-08-29 14:59 | PROGRESS NOTE ---
DATE: 08/29/2019 SUBJECTIVE: Patient resting in bed. His is non verbal. OBJECTIVE: Vital signs: Temperature 97.5 degrees, pulse 82. Respiratory rate is 21, blood pressure is 117/72, oxygen saturation is 100%. HEENT: He is atraumatic, normocephalic. Cardiovascular: S1, S2. Respiratory: Has evidence of good entry bilaterally. Abdomen: Soft, nontender. No masses felt. Extremities: No evidence of edema. Central nervous system: The patient is awake. He is non verbal. LABORATORY DATA: WBC is 7.8 hematocrit is 28, with a platelet count of 341,000. Sodium is 139, potassium 4.4, chloride is 101 bicarb 21, BUN is 13 creatinine 0.6. ASSESSMENT AND PLAN: 1. Acute hypoxic respiratory failure secondary to pneumonia. Continue current antibiotic regimen. Supplement with oxygen. The patient is currently on meropenem as well as Zyvox. 2. Probable large right pleural effusion. Today's chest x-ray actually does not indicate the patient have a large right pleural effusion . Based on these not likely that interventional radiology be get an of fluid during thoracentesis. 3. Urinary tract infection secondary to Providencia stuartii. Continue current antibiotic regimen. 4. Severe dysphagia due to dementia and stroke. NPO for now. DISPOSITION: Patient will be going to long-term facility once ready for discharge. cc: Gokul Weller MD MTDD
--- NOTE | 2019-08-29 18:57 | INFECTIOUS DISEASE PROGRESS NO ---
DATE: 08/29/2019 PRESENT ILLNESS: Mr. Delarosa has been treated for Providencia urinary tract infection as well as pneumonia as seen on CT. He has also had a leukocytosis and fever both of which have resolved. MEDICATIONS: He is receiving meropenem 1 g IV every 8 hours and Zyvox 600 mg IV every 12 hours, both of these for the last 3 days. PHYSICAL EXAMINATION: Vital Signs: Temperature is 97.5 degrees, pulse rate 82, respiratory rate 21, blood pressure 117/72, O2 saturation 100% on 2 L nasal cannula. General: This is a chronically ill-appearing, elderly gentleman. He is sitting up on the side of the bed, currently in no acute distress. HEENT: Atraumatic, normocephalic. Oral mucous membranes are pink and moist. Conjunctivae are pale. Neck: Neck has a decrease in suppleness. Trachea is midline. Cardiovascular: Heart rate and rhythm are regular. Normal sinus rhythm on the monitor. Respiratory: Lung sounds are clear in the upper lobes. Diminished in the bases bilaterally with left lower lobe crackles noted. Abdomen: Soft, flat, nontender. There is a PEG tube in place. That site without edema or erythema. There is a small amount of crusty drainage noted around the site. Integumentary: Skin is warm and dry. There is a PICC line in place to the right upper arm. That site is without edema, erythema, or drainage. LABORATORY AND X-RAY: Today, his white count is 7.8, hemoglobin 8.6, platelet count 341,000, creatinine 0.6, estimated GFR is greater than 60. Chest ultrasound today showed fluid in the right pleural space, which was too small for drainage. Chest x-ray today shows consolidation of the right lung base. With low lung volumes and no new infiltrates. ASSESSMENT AND PLAN: Mr. Delarosa appears to be doing well on the Zyvox and meropenem. He has been afebrile for the last 24 hours. His white count is back down to normal. At this point, we will continue the Zyvox and meropenem as ordered. These plans have been discussed with and recommended by Dr. Childs. COMORBIDITIES: For Ms. Delarosa include that he is elderly with a seizure disorder, anemia of chronic disease, previous stroke, history of alcoholism, dementia, cigarette smoking and illicit drug use. Dictated by TARIK Navarrete for Angel Childs MD cc: Angel Childs MD
[2019-08-29] MEDS: MILK OF MAGNESIA PEG SCH (20:16)
[2019-08-29] MEDS: ARICEPT PEG SCH (20:16)
[2019-08-30] MEDS: MERREM 1 GM in NS 50 ML IV SCH ×4 (02:08→17:44)
[2019-08-30] MEDS: DUONEB (A & A) INH SCH ×4 (03:47→18:53)
[2019-08-30] MEDS: NEXIUM PACKET PEG SCH (06:05)
--- NOTE | 2019-08-30 07:43 | PULMONOLOGY PROGRESS NOTE ---
DATE: 08/29/2019 SUBJECTIVE: The patient is arousable. He intermittently communicates. OBJECTIVE: The patient's maximum temperature in the last 24 hours is 100.1 degrees. Blood pressure 102/67, heart rate 79, respiratory rate 20, and oxygen saturation 100% on nasal cannula.HEENT: Pupils are equal and reactive. Oropharynx is clear. Neck: Supple. Chest: Reveals diminished breath sounds right lung. Cardiac: S1-S2. Abdomen: Soft. Extremities: Without edema. LABORATORIES: Chest x-ray reveals right-sided effusion and consolidation. Microbiology reveals no new data. IMPRESSION: A 64-year-old with: 1. Right lower lobe pneumonia. 2. Parapneumonic effusion. 3. Leukocytosis which has resolved. 4. Hypoxemic respiratory failure. 5. Gram-negative urinary tract infection. 6. Dementia. DISCUSSION: A 64-year-old with problems outlined above. The patient has been felt to be a difficult thoracentesis candidate, and his pleural effusion has remained stable. He continues to have significant consolidation likely in part due to marginal bronchial hygiene associated with remaining in the bed. His leukocytosis has now resolved. PLAN: 1. Continue current antibiotics per Infectious Disease. 2. Encourage deep breathing and coughing. 3. Overall prognosis appears guarded. cc: Delon Mendes MD
[2019-08-30] MEDS: SEROQUEL PEG SCH ×2 (09:27→20:13)
[2019-08-30] MEDS: VITAMIN B-1 PEG SCH (09:27)
[2019-08-30] MEDS: VALIUM PEG SCH ×3 (09:27→20:13)
[2019-08-30] MEDS: RISPERDAL M-TAB PEG SCH ×2 (09:27→20:12)
[2019-08-30] MEDS: LOPRESSOR PEG SCH (09:27)
[2019-08-30] MEDS: KEPPRA PEG SCH ×2 (09:28→20:12)
[2019-08-30] MEDS: FOLIC ACID PEG SCH (09:28)
[2019-08-30] MEDS: ZYVOX 600 MG/D5W 600 MG/300 ML IVPB IV SCH ×2 (09:29→21:35)
[2019-08-30] MEDS: TENOFOVIR DISOPROXIL FUMARATE PEG SCH (09:29)
[2019-08-30] MEDS: NAMENDA PEG SCH (09:29)
[2019-08-30] MEDS: MYCOSTATIN SUSP PO SCH ×4 (09:29→20:12)
[2019-08-30] MEDS: MUCOMYST 20% INH SCH ×2 (10:00→18:53)
--- NOTE | 2019-08-30 13:49 | PROGRESS NOTE ---
DATE: 08/30/2019 Mr. Delarosa is followed by [facility]. He had abnormal labs when he came in. Blood cultures were initially drawn were positive and came back to the emergency room. He has a history of hypertension, CVA, alcohol disorder, seizures, and chronic hepatitis B. He has had PEG tube placement. Today he appears comfortable. He remains afebrile, temperature 98.4 degrees, pulse 79, respirations 22, blood pressure 116/74. Pupils are equal and round. Lungs: Are clear in all lung ramírez. Cardiovascular: Regular rate without murmur or S3. Abdomen: Soft. Skin: Warm and dry. Urine output 1800 mL. ASSESSMENT AND PLAN: 1. Complicated urinary tract infection positive Providencia. He is currently on Rocephin through his peripherally inserted central catheter line. 2. Question gram-positive bacteremia. Continue to follow blood cultures. Repeat blood cultures were negative. 3. Pleural effusion pneumonia. Continue treatment. 4. Severe dysphagia, high aspiration risk. 5. Acute hypoxemic respiratory failure, gram-negative urinary tract infection and underlying dementia. REVIEW OF ORDERS: I do not see anything to change. We are using his PEG tube. He is on Seroquel 100 mg per PEG tube at bedtime 50 mg b.i.d., risperidone 1 mg per PEG tube b.i.d., getting thiamine 100 mg per PEG tube daily and then he is on linezolid 600 mg IV q.12. cc: Hebert Layton MD
--- NOTE | 2019-08-30 20:02 | INFECTIOUS DISEASE PROGRESS NO ---
DATE: 08/30/2019 PRESENT ILLNESS: The patient has been treated for Providencia urinary tract infection and pneumonia with effusion as seen on CT scan. The patient has leukocytosis, which now has resolved. MEDICATIONS: This is the 4th day of treatment with the combination of meropenem and Zyvox. PHYSICAL EXAMINATION: Vital Signs: Temperature is 98.4 degrees, pulse 79, respirations 22, blood pressure 116/74. General: This is a chronically ill-appearing elderly male. He is lying in bed today and is not very responsive. Head, eyes, ears, nose and throat: I was unable to determine how well he could see or hear. There is no drainage from the nose or ears. Neck: His neck has a decrease in movement, but it does not seem to hurt when I passively move it. Lungs: Clear to auscultation. Cardiovascular: Heart rate is regular. Abdomen: The patient has a PEG tube in place. The site is not purulent or bleeding. Extremities: The patient has a PICC in the right arm. The site is not purulent or bleeding either. Neurologic: The patient is lying in bed. He is not responding to verbal stimuli. His eyes are open. He does not have a tremor. LAB AND X-RAY: There is no new lab or x-ray for today. ASSESSMENT AND PLAN: The patient is doing well on Zyvox and meropenem. Tomorrow, I am going to today obtain a CBC, BMP and chest x-ray. COMORBIDITIES: The patient is elderly. He has a seizure disorder, anemia of chronic disease, prior stroke, history of alcoholism and dementia. The patient is a cigarette smoker and has a history of using illicit drugs. cc: Angel Childs MD
[2019-08-30] MEDS: ARICEPT PEG SCH (20:12)
[2019-08-31] MEDS: MERREM 1 GM in NS 50 ML IV SCH ×3 (02:05→17:31)
[2019-08-31] MEDS: DUONEB (A & A) INH SCH ×4 (03:21→23:07)
--- NOTE | 2019-08-31 06:06 | Diag Imaging Result Doc PS360 ---
EXAM: CHEST-1 VIEW HISTORY: pneumonia TECHNIQUE: Single view COMPARISON: 08/29/2019 FINDINGS: No change in the right-sided PICC line. There is a moderate-sized right pleural effusion with basilar atelectasis and infiltrates. No cardiomegaly. There is mild vascular distention. IMPRESSION: Stable chest Electronically signed by Mike Tijerina 08/31/2019 6:04 AM
[2019-08-31 06:07] LABS: BASO# 0.01 X1000 (0.0-0.2); BASO% 0.1 % (0.0-0.8); EOS# 0.27 X1000 (0.0-0.7); EOS% 3.8 % (0.0-10.0); HEMATOCRIT 29.5 % (42.0-52.0); HEMOGLOBIN 9.1 g/dL (14.0-18.0); IMM GRAN# 0.12 X1000 (0.0-0.04); IMM GRAN% 1.7 % (0.0-0.5); LYMPH# 1.69 X1000 (1.2-3.4); LYMPH% 23.6 % (20.5-51.1); MCHC 30.8 g/dL (33-37); MONO% 8.4 % (1.7-9.3); MPV 10.5 FL (7.4-10.4); NEUT# 4.48 X1000 (1.4-6.5); NEUT% 62.4 % (42.2-75.2); PLT 318 X1000 (130-400); RBC 3.64 XMIL (4.7-6.1); RDW 13.4 % (11.5-14.5); WBC 7.17 X1000 (4.8-10.8)
[2019-08-31] MEDS: NEXIUM PACKET PEG SCH (06:11)
[2019-08-31 06:27] LABS: AGAP 8; BUN 13 mg/dL (8-22); CALCIUM 8.6 mg/dL (8.8-10.2); CHLORIDE 99 mmol/L (98-107); COSMO 278; CREATININE 0.5 mg/dL (0.7-1.2); ESTIMATED GFR > 60; GLUCOSE 104 mg/dL (70-104); POTASSIUM 4.5 mmol/L (3.5-5.1); SODIUM 139 mmol/L (136-145); TCO2 32 mmol/L (25-35)
[2019-08-31] MEDS: FOLIC ACID PEG SCH (08:35)
[2019-08-31] MEDS: KEPPRA PEG SCH ×2 (08:35→20:01)
[2019-08-31] MEDS: LOPRESSOR PEG SCH (08:35)
[2019-08-31] MEDS: SEROQUEL PEG SCH ×2 (08:36→20:01)
[2019-08-31] MEDS: VALIUM PEG SCH ×3 (08:36→20:01)
[2019-08-31] MEDS: VITAMIN B-1 PEG SCH (08:36)
[2019-08-31] MEDS: NAMENDA PEG SCH (08:36)
[2019-08-31] MEDS: MYCOSTATIN SUSP PO SCH ×4 (08:37→20:01)
[2019-08-31] MEDS: RISPERDAL M-TAB PEG SCH ×2 (08:42→20:01)
[2019-08-31] MEDS: TENOFOVIR DISOPROXIL FUMARATE PEG SCH (08:42)
[2019-08-31] MEDS: MUCOMYST 20% INH SCH ×2 (09:33→23:07)
--- NOTE | 2019-08-31 09:56 | PROGRESS NOTE ---
DATE: 08/31/2019 SUBJECTIVE: Mr. Delarosa is awake. He still can hear some wheezing. Appears comfortable. OBJECTIVE: Vital Signs: Temp 98.2 degrees, pulse 80, respirations 20, blood pressure 129/71. HEENT: Pupils are equal and round. Lungs: Clear in all lung ramírez. Cardiovascular: Regular rhythm and rate without murmur or S3. Urine output is 3300 mL. IMAGING: Chest x-ray: Stable chest. No change in the right-sided PICC line. There is a moderate-sized right pleural effusion, bibasilar atelectasis and infiltrates. ASSESSMENT AND PLAN: 1. Complicated urinary tract infection, positive Providencia, currently on Rocephin. 2. Questionable gram-positive bacteremia. Continue present antibiotics. Repeat blood cultures were negative. 3. Pleural effusion, pneumonia. Continue present treatment. 4. Severe dysphagia, high aspiration risk. 5. Acute hypoxemic respiratory failure, gram-negative urinary tract infection, underlying dementia. Continue current medication. REVIEW OF ORDERS: He is getting Aricept 10 mg at bedtime, he is on Valium 2.5 mg, which I think he gets 3 times a day, Nexium 40 mg per PEG tube daily, folic acid 1 mg per PEG tube every a.m., Keppra 500 mg per PEG tube b.i.d., Namenda 10 mg daily, Lopressor 12.5 mg a day, Seroquel 100 mg p.o. at bedtime and 50 mg b.i.d., Risperdal 1 mg per PEG tube b.i.d., thiamine 100 mg per PEG tube every a.m., linezolid 600 mg IV every 12 hours (I think that is the only antibiotic he is on at this time). cc: Hebert Layton MD
[2019-08-31] MEDS: ZYVOX 600 MG/D5W 600 MG/300 ML IVPB IV SCH ×2 (10:13→22:32)
[2019-08-31] MEDS: ARICEPT PEG SCH (20:01)
[2019-08-31] MEDS: MILK OF MAGNESIA PEG SCH (22:07)
[2019-09-01] MEDS: MERREM 1 GM in NS 50 ML IV SCH ×3 (02:23→17:23)
[2019-09-01] MEDS: DUONEB (A & A) INH SCH ×4 (03:30→22:06)
[2019-09-01] MEDS: NEXIUM PACKET PEG SCH (06:27)
--- NOTE | 2019-09-01 06:27 | INFECTIOUS DISEASE PROGRESS NO ---
DATE: 08/31/2019 PRESENT ILLNESS: The patient has a Providencia urinary tract infection and a right lower lobe pneumonia with effusion. MEDICATIONS: This is the 5th day of treatment with the combination of meropenem and Zyvox. PHYSICAL EXAMINATION: Vital Signs: Temperature 98 degrees, pulse 78, respirations 24, and blood pressure 111/67. General: This is a chronically ill-appearing elderly male. He is in no acute distress. HEENT: I did not see any white patches on his tongue. He does not have any drainage from his nose or ears. Neck: He does not seem to have any pain when he turns his neck. Lungs: Clear to auscultation. Cardiovascular: Heart rate is regular. Abdomen: The patient has a PEG tube in place. The site is not purulent or tender. Extremities: Patient has a PICC in the right arm, that site also is not purulent or tender. Neurologic: The patient is lying in bed but, he is awake. He did not respond to verbal stimuli. His eyes are open. When I pulled down his blanket, he screamed at me to put it back up because he was cold. LABORATORY AND X-RAY: Chest x-ray shows right pleural effusion with a basilar infiltrate/atelectasis. The patient also has a urinary tract infection. My plan is to continue with Zyvox and meropenem. ASSESSMENT AND PLAN: The patient has a urinary tract infection and pneumonia. I plan on continuing Zyvox and meropenem. COMORBIDITIES: The patient is elderly. He has a seizure disorder, anemia of chronic disease, prior stroke, and history of alcoholism. He also has dementia. The patient is a cigarette smoker, and has used illicit drugs. cc: Angel Childs MD [facility]
[2019-09-01] MEDS: ZYVOX 600 MG/D5W 600 MG/300 ML IVPB IV SCH ×2 (09:47→21:40)
[2019-09-01] MEDS: LOPRESSOR PEG SCH (09:48)
[2019-09-01] MEDS: NAMENDA PEG SCH (09:49)
[2019-09-01] MEDS: RISPERDAL M-TAB PEG SCH ×2 (09:49→22:11)
[2019-09-01] MEDS: KEPPRA PEG SCH ×2 (09:49→21:40)
[2019-09-01] MEDS: VALIUM PEG SCH ×3 (09:49→21:40)
[2019-09-01] MEDS: FOLIC ACID PEG SCH (09:51)
[2019-09-01] MEDS: MYCOSTATIN SUSP PO SCH ×4 (09:51→21:40)
[2019-09-01] MEDS: VITAMIN B-1 PEG SCH (09:51)
[2019-09-01] MEDS: SEROQUEL PEG SCH ×2 (09:51→21:40)
[2019-09-01] MEDS: TENOFOVIR DISOPROXIL FUMARATE PEG SCH (09:52)
[2019-09-01] MEDS: MUCOMYST 20% INH SCH ×2 (10:42→22:06)
--- NOTE | 2019-09-01 12:36 | PROGRESS NOTE ---
DATE: 09/01/2019 SUBJECTIVE: Mr. Delarosa was awake, alert, and he did want me to pull his covers up. He is breathing comfortably. OBJECTIVE: Vital Signs: Temp 98.3 degrees, pulse 80, respirations 20, blood pressure 122/74. HEENT: Pupils are equal and round. Lungs: Clear in all lung ramírez. Cardiovascular: Regular rhythm and rate without murmur or S3. Urine output is 2600 mL. ASSESSMENT AND PLAN: 1. Providencia urinary tract infection and right lower lobe pneumonia with effusion. This is the sixth day of treatment with a combination of meropenem and Zyvox. He clinically appears to be improving. 2. Severe dysphagia, high risk for aspiration. 3. Acute hypoxemic respiratory failure secondary to his pneumonia and infection. Clinically, he appears to be improved. REVIEW OF ORDERS: I do not see any change. Hopefully, we can get him back to the [facility], possibly tomorrow. cc: Hebert Layton MD
[2019-09-01] MEDS ORDERED: STERILE WATER INJ. INJ ONE (12:58)
[2019-09-01] MEDS ORDERED: CATHFLO IV ONE (12:58)
[2019-09-01] MEDS ORDERED: LASIX IV ONE (20:14)
--- NOTE | 2019-09-01 21:16 | INFECTIOUS DISEASE PROGRESS NO ---
DATE: 09/01/2019 PRESENT ILLNESS: The patient is being treated for a Providencia urinary tract infection and a right lower lobe pneumonia with effusion. MEDICATIONS: The patient has been on meropenem and Zyvox now for 6 days. PHYSICAL EXAMINATION: Vital Signs: Temperature is 98.3 degrees, pulse 80, respirations 23, blood pressure 122/74. General: This is a chronically ill-appearing, elderly male. He is in no acute distress. Head/eyes/ears/nose/throat: No drainage was coming from the nose or ears. I could not get a good look into his mouth. Neck: The patient did not have pain when he moved his neck. Lungs: Clear to auscultation. Cardiovascular: Heart rate is regular. Abdomen: Soft and nontender. He has a G-tube in place. There is some crusting at the site, but there is no purulence or bleeding. Neurologic: The patient is lying in bed with his eyes closed. He did not respond to verbal stimuli. He does not have a tremor. LAB AND X-RAY: CBC shows a white count of 7170, hemoglobin 9.1, platelet count 318,000. Creatinine is 0.5, GFR is greater than 60. Stool for Clostridium difficile toxin was negative. Chest x-ray shows a right basilar pleural effusion and infiltrate. ASSESSMENT AND PLAN: The patient has urinary tract infection and pneumonia. My plan is to continue with Zyvox and meropenem. COMORBIDITIES: The patient is elderly. He has the following: Seizure disorder, anemia of chronic disease, prior stroke, history of alcoholism, dementia, and history of cigarette smoking and use of illicit drugs. cc: Angel Childs MD
[2019-09-01] MEDS: ARICEPT PEG SCH (21:40)
[2019-09-02] MEDS: MERREM 1 GM in NS 50 ML IV SCH ×2 (03:01→10:25)
[2019-09-02] MEDS: DUONEB (A & A) INH SCH ×3 (03:43→15:26)
[2019-09-02] MEDS: NEXIUM PACKET PEG SCH (06:38)
--- NOTE | 2019-09-02 06:42 | Diag Imaging Result Doc PS360 ---
CHEST-PORTABLE - 09/02/2019 INDICATION: abnormal exam COMPARISON: 08/31/2019 FINDINGS: Stable right PICC line. Stable severely low lung volumes. Stable infiltrate throughout the right lung and a small right basilar pleural effusion. No new infiltrates. Heart size remains top normal. IMPRESSION: No change from prior. Electronically signed by Alen Gregory 09/02/2019 6:40 AM
[2019-09-02] MEDS: MYCOSTATIN SUSP PO SCH (08:17)
[2019-09-02] MEDS: VALIUM PEG SCH (08:17)
[2019-09-02] MEDS: VITAMIN B-1 PEG SCH (08:17)
[2019-09-02] MEDS: LOPRESSOR PEG SCH (08:17)
[2019-09-02] MEDS: RISPERDAL M-TAB PEG SCH (08:17)
[2019-09-02] MEDS: KEPPRA PEG SCH (08:17)
[2019-09-02] MEDS: TENOFOVIR DISOPROXIL FUMARATE PEG SCH (08:17)
[2019-09-02] MEDS: NAMENDA PEG SCH (08:18)
[2019-09-02] MEDS: SEROQUEL PEG SCH (08:18)
[2019-09-02] MEDS: FOLIC ACID PEG SCH (08:18)
--- NOTE | 2019-09-02 08:46 | PULMONOLOGY PROGRESS NOTE ---
DATE: 09/01/2019 SUBJECTIVE: Patient is awake and alert. He attempts to speak but speech is not intelligible. He will follow commands and has a fair cough effort. OBJECTIVE: Patient is been afebrile for last 24 hours. Decreased breath sounds right base. Cardiac exam regular rate and normal S1 and normal S2. Abdomen soft with positive bowel sounds. Shortage of a 1+ peripheral edema. IMPRESSION: 1. Pneumonia 2. Urinary tract infection. 3. Hypoxemic respiratory failure. 4. Dementia. DISCUSSION: A 64-year-old with problems outlined above. His chest x-ray has improved over the last 5 days with decreased effusion. He continues to have some consolidation at the right base. RECOMMENDATIONS: 1. Antibiotics per Infectious Disease. 2. Encourage bronchial hygiene with deep breathing and coughing. 3. Single dose of Lasix today. 4. Follow up chest x-ray tomorrow. cc: Delon Mendes MD [facility]
[2019-09-02] MEDS: MUCOMYST 20% INH SCH (09:08)
[2019-09-02] MEDS: ZYVOX 600 MG/D5W 600 MG/300 ML IVPB IV SCH (10:25)
--- NOTE | 2019-09-02 10:48 | DISCHARGE SUMMARY ---
ADMISSION DATE: 08/16/2019 DISCHARGE DATE: 09/02/2019 HISTORY: Followed by June Patino. He presented with abnormal labs. A 64-year-old with history of hypertension, CVA, alcohol use disorder, seizures, chronic hepatitis B. Apparently he was initially seen in the emergency department, discharged on antibiotics for possible pneumonia. Apparently, when the patient [facility] to [facility], he was not feeling well and had blood cultures that were initially drawn, which were positive. Subsequently, patient returned back to the emergency department. Due to presenting conditions, he was admitted. PAST MEDICAL HISTORY: Includes 1. Hypertension. 2. CVA. 3. Alcohol use disorder. 4. Seizures. 5. Chronic hepatitis B. PAST SURGICAL HISTORY: He has a PEG tube. MEDICATIONS: Current medications were reviewed. He is on 1. Albuterol nebulizers q.6 hours. 2. Aspirin 81 mg a day. 3. Diazepam 2.5 mg per PEG tube t.i.d. 4. Aricept 10 mg per PEG tube at bedtime. 5. Keppra 500 mg per PEG tube b.i.d. 6. Memantine 10 mg via PEG tube daily. 7. Metoprolol 12.5 mg per PEG tube daily. 8. Quetiapine 50 mg per PEG tube b.i.d. 9. Risperidone 1 mg per PEG tube b.i.d. 10. Thiamine 100 mg per PEG every morning. ADMISSION DIAGNOSIS: 1. Positive blood culture, suspect bacteremia. 2. Right basilar pleural effusion. 3. Cerebrovascular accident. 4. Seizure disorder. 5. Hypertension. HOSPITAL COURSE: He had a renal ultrasound done on 08/17/2019, bilateral nonobstructing renal stones were appreciated. Chest x-ray done July 2019, enlarged, moderate right basilar pleural effusion. Infectious Disease was asked to see, Dr. Childs, regarding his positive blood culture for coagulase-negative Staphylococcus as 1/2 cultures were drawn on 08/13/2019. Positive culture was a contaminant, does not require antibiotic treatment. The patient, however, does have growing Providencia, and the patient also had some leukocytosis and urinary tract infection may be causing leukocytosis. Interesting note that his white count was 15,930 on admission, today is 13,210. He also had a culture, which is labeled abdomen and grew out Staphylococcus epidermis. We are not sure where the culture was from. Patient does have a G-tube and suspect it was taken from there. The G-tube site looked unremarkable. No purulence. So treating for urinary tract infection, placed him on Rocephin 2 g IV q.24 hours. Ultrasound of his kidneys, he has bilateral kidney stones, but nonobstructing. Pulmonary was asked to follow on 08/17/2019, acute hypoxemic respiratory failure, right lower lobe pneumonia, right-sided pleural effusion, leukocytosis, and dementia with previous strokes. Echocardiogram done on 08/18/2019, aortic valve leaflets trileaflet. Pulmonic valve normal. Mitral valve normal. Tricuspid valve was normal. Pulmonic artery systolic pressure 33 mmHg. Normal left ventricular cavity size. Estimated ejection fraction 65%. Grade 1 diastolic dysfunction. The patient showed steady progress. Chest x-ray repeated on 08/22/2019, large right pleural effusion, atelectasis versus pneumonia in the right lower lobe and middle lobe. He became more responsive. He did get a thoracentesis, ultrasound-guided. Small right pleural effusion which but was not accessible for thoracentesis. They were unable to tap any fluid. Abdominal and pelvic CT done, worsened right lower lobe pneumonia, pleural fluid collection. No evidence of acute disease in abdomen or pelvis. The patient showed some steady progress. Repeat chest x-ray on 08/29/2019, severely low lung volumes. Infiltrates look better. A repeat chest x-ray on 08/31/2019 with stable chest, right-sided PICC line. There is a moderate-sized right pleural effusions with basilar atelectasis versus infiltrates, but looks more consistent with atelectasis, so x-rays improved. Continues to have some consolidation in the right base. Continue present antibiotics. Chest x-ray today. No change in PICC line. Stable infiltrate throughout the right lung. Small right basilar effusion. May see if he could go back to the [facility]. DISCHARGE MEDICATION: 1. Continue duo nebs and Mucomyst. 2. Valium 2.5 mg per PEG tube 3 times a day at 9 o'clock, 3 o'clock and 9 o'clock. 3. Aricept 10 mg per PEG tube at bedtime. 4. Nexium packet 40 mg per PEG tube daily. 5. Folic acid 1 mg per PEG in the morning. 6. Keppra 500 mg b.i.d. 7. Namenda 10 mg per PEG tube daily. 8. Lopressor 12.5 mg per PEG tube daily. 9. Seroquel 100 mg p.o. at bedtime p.r.n. and 50 mg per PEG tube b.i.d. 10. Risperidone 1 mg per PEG b.i.d. 11. Vitamin B1 100 mg per PEG in the morning. cc: Hebert Layton MD
[2019-09-02 11:58] VITALS: BP 115/68
--- NOTE | 2019-09-02 17:14 | INFECTIOUS DISEASE PROGRESS NO ---
DATE: 09/02/2019 PRESENT ILLNESS: The patient has a Providencia urinary tract infection and a right lower lobe pneumonia with effusion. The patient also has oral candidiasis. MEDICATIONS: This is the 7th day of treatment with meropenem and Zyvox. The patient also is on Nystatin swish and swallow. PHYSICAL EXAMINATION: Vital Signs: Temperature is 97.9 degrees, pulse 75, respirations 19, blood pressure is 101/58. General: This is a chronically ill-appearing elderly male. He is in no acute distress except when I pull back his sheet and blankets to examine him he starts screaming. Head/eyes/ears/nose/throat: I do not see any white patches in the mouth. He does not have any drainage from the nose or ears. He could hear my spoken words. Neck: No pain with movement. Lungs: Clear to auscultation. Cardiovascular: Heart rate is regular. Abdomen: Soft and nontender. The patient has a G-tube in place. The site is not purulent or tender. Neurologic: The patient is lying in bed. He does not follow verbal stimuli. He does not seem to be able to carry on a conversation. The patient does not have a tremor either. LAB AND X-RAY: There is no new x-ray for today. The CBC showed shows a white count of 7170, hemoglobin 9.1, platelet count 318,000, creatinine is 0.5, GFR is greater than 60. Stool for Clostridium difficile toxin is negative. ASSESSMENT AND PLAN: The patient has urinary tract infection, pneumonia, and oral candidiasis. My plan is to continue Zyvox, meropenem and nystatin swish and swallow. COMORBIDITIES: The patient is elderly. He has a seizure disorder, anemia of chronic disease, history of a stroke, history of alcoholism, dementia, and history of cigarette smoking and use of illicit drugs. cc: Angel Childs MD
== END 2019-09-02 16:23 | DRG 689 ==
LOC: SUPCPDRO → ED 16:53 → SUATTDRO 22:30 → 2N 22:30 → 3N 08-17 17:14 → 2N 08-24 15:29 → 1N 09-01 14:10
PROVIDERS: ATTEND Emergency Medicine

== ENCOUNTER 2019-10-10 11:10 | Inpatient (IN) ==
--- NOTE | 2019-10-10 11:39 | PROVIDER DOCUMENTATION ---
HPI-General Adult - General Chief Complaint: Shortness of Breath Stated Complaint: SOB Time Seen by Provider: 10/10/19 11:19 Source: patient, EMS, halfway records, other (halfway) Allergies/Adverse Reactions: Patient Allergies Allergy/AdvReac Type Severity Reaction Status Date / Time Penicillins Allergy Unknown Verified 10/10/19 12:52 Sulfa (Sulfonamide Allergy Unknown Verified 10/10/19 12:52 Antibiotics) Home Medications: Home Medication List Medication Instructions Recorded Confirmed Last Taken Type Thiamine [Vitamin B-1] 100 mg PEG QAM 09/21/15 10/10/19 10/10/19 08:00 History 100 mg Folic Acid 1 mg PEG QAM 10/09/17 10/10/19 10/10/19 08:00 History 1 mg Levetiracetam 500 mg PEG BID 10/09/17 10/10/19 10/10/19 08:00 History 500 mg Potassium Chloride 10% Liquid 20 meq PEG QAM 10/09/17 10/10/19 10/10/19 08:00 History 20 meq Albuterol 2.5MG/Ipratrop 0.5MG 3 ml INH RTQ6H neb 10/14/17 10/10/19 09/07/19 12:00 Rx [Duoneb (A & A)] as directed Memantine HCl 10 mg PEG DAILY 08/13/19 10/10/19 10/10/19 08:00 History 10 mg Metoprolol Tartrate 12.5 mg PEG DAILY 08/13/19 10/10/19 10/10/19 08:00 History 12.5 mg Quetiapine Fumarate 1 tab PEG QHS PRN 08/13/19 10/10/19 09/06/19 08:00 History 100 mg Quetiapine [Seroquel] 1 tab PEG BID 08/13/19 10/10/19 10/10/19 08:00 History 50 mg Risperidone [Risperidone Odt] 1 mg PEG BID 08/13/19 10/10/19 10/10/19 08:00 History 1 mg Tenofovir Disoproxil Fumarate 1 tab PEG DAILY 08/13/19 10/10/19 10/10/19 08:00 History 300 mg Acetaminophen 650 mg PEG Q4H PRN PRN 08/17/19 10/10/19 09/06/19 08:00 History 650 mg Aspirin 81 mg PEG DAILY 08/17/19 10/10/19 10/10/19 08:00 History 81 mg Esomeprazole [Nexium Packet] 40 mg PEG DAILY 08/17/19 10/10/19 10/10/19 06:00 History 40 mg Menthol/Zinc Oxide Ointment 1 applicatn TOP PRN PRN 08/17/19 10/10/19 Unknown History [Calmoseptine Ointment] Acetylcysteine 20% [Mucomyst 20%] 3 ml INH RTBID vial 09/02/19 10/10/19 10/10/19 08:00 Rx Magnesium Hydroxide [Milk of 30 ml PEG MoWeFr udc 09/02/19 10/10/19 10/07/19 20:00 Rx Magnesia] 30 ml Acetaminophen [Mapap Arthritis 650 mg PEG BID 09/07/19 10/10/19 10/10/19 08:00 History Pain] 650 mg Ascorbate Calcium [Vitamin C] 500 mg PO BID 09/07/19 10/10/19 10/10/19 08:00 History 500 mg Chlorhexidine Gluconate [Peridex] 30 ml PO BID 09/07/19 10/10/19 10/10/19 08:00 History Diazepam [Valium] 2.5 mg PEG 0500,1300,2000 09/07/19 10/10/19 10/10/19 05:00 History 2.5 mg Donepezil HCl 10 mg PEG HS 09/07/19 10/10/19 10/09/19 21:00 History 10 mg Multivit-Min/Ferrous Gluconate 15 ml PEG BID 09/07/19 10/10/19 10/10/19 08:00 History [Centrum Multivit-Mineral Liq] 15 ml Protein Hydrolysate,Milk [Liquid 30 ml PO BID 09/07/19 10/10/19 10/10/19 08:00 History Protein Fortifier] 30 mL Zinc Sulfate 220 mg PO DAILY 09/07/19 10/10/19 10/10/19 08:00 History 220 mg Balsam Tyler/Anza Oil [Venelex 30 gm TOPICAL TID 10/10/19 10/10/19 10/10/19 08:00 History Ointment] Clotrimazole/Betamethasone Dip 1 applic TOP BID 10/10/19 10/10/19 10/10/19 08:00 History [Clotrimazole-Betamethasone Crm] Lactobacillus [Culturelle For Kids] 1 packet PEG DAILY 10/10/19 10/10/19 10/10/19 08:00 History 1 pkt Levofloxacin [Levaquin] 750 mg PO DAILY 10/10/19 10/10/19 10/10/19 08:00 History 750 mg Petrolatum,White [Vaseline] 1 dose TOP DAILY 10/10/19 10/10/19 10/10/19 08:00 History 1 dose - History of Present Illness -Gen Adult Nature of Presenting Problems: 64yo male presents from halfway via EMS with CC concerns of lethargy and increased work of breathing. Per the halfway over the last week the patient has had progressive labored breathing and lethargy. The patient was started on levoquin without improvement. Per EMS they were told that the patient is a high aspiration risk and has had some aspiration with feeds recently. The patient is currently noted to have mild IWOB and some diaphoresis. He is oriented to self and able to follow commands. Location of Pain/Injury: reports: other (buttock) Associated Symptoms: reports: shortness of breath, other (lethargy) Review of Systems - Adult - REVIEW OF SYSTEMS - ADULT ROS:: limited per condition Constitutional: reports: no symptoms reported Eyes: reports: no symptoms reported. denies: eye pain Ears, Nose, Mouth & Throat: reports: no symptoms reported Cardiovascular: reports: no symptoms reported. denies: chest pain Respiratory: reports: shortness of breath Gastrointestinal: denies: abdominal pain Genitourinary: reports: other (buttock pain) Musculoskeletal: reports: no symptoms reported Integumentary: reports: no symptoms reported Neurological: reports: other (lethargic) Psychiatric: reports: no symptoms reported, other (lethargic) Hematologic/Lymphatic: reports: no symptoms reported Allergic/Immunologic: reports: no symptoms reported Past History - Adult - PAST MEDICAL HISTORY-ADULT Review of Records: reports: Old Records Reviewed, Nursing Assessment Review Major Childhood Illnesses: reports: denies history Cardiovascular: reports: HTN Respiratory: reports: pneumonia Gastrointestinal: reports: denies history, liver disease (chronic hep B) Obstetrical/Gynecological: reports: denies history Genitourinary: reports: denies history Musculoskeletal: reports: denies history Neurological: reports: stroke deficits, dementia, Seizures/Epilepsy Psychiatric: reports: anxiety Endocrine/Immune: reports: denies history Other Conditions: reports: denies history Additional History: Alcoholism; Beb ridden for the past two years - PRIOR SURGERIES/PROCEDURES Surgical/Procedure History: reports: other (peg tube placement) - PRIOR HOSPITALIZATIONS Prior Hospitalizations: reports: for similar symptoms - IMMUNIZATION STATUS Childhood Immunizations: See Nurse Assessment Flu Vaccine: See Nurse Assessment - FAMILY HISTORY Family History: reviewed, not pertinent Physical Exam-General - CONSTITUTIONAL General Appearance: cachetic, thin, lethargic, other (diaphoretic) - EYES Eyes: negative: conjuctival exudate, sclera injected - HEAD, EARS, NOSE, MOUTH & THROAT HENMT: normocephalic/atraumatic. negative: moist mucous membranes (dry), pharynx normal (pharngyl exudate noted), pharyngeal erythema - NECK Neck: non-tender, supple. negative: lymphadenopathy - RESPIRATORY Respiratory: respiratory distress (mild, on NC), decreased breath sounds (right LLL). negative: crackles, stridor, wheezing - CARDIOVASCULAR Cardiovascular: regular rate, rhythm, no edema - GASTROINTESTINAL (ABDOMEN) Abdominal Exam: non tender, soft, distended, other (peg tube in place with some surrounding drainage, no erythema or tenderness around the tube site). negative: guarding, rigid, tenderness - MUSCULOSKELETAL Extremity: non-tender. negative: deformity, swelling - SKIN Integumentary: normal color, diaphoresis - NEUROLOGIC Neurologic: grossly normal - PSYCHIATRIC Psych/Mental Status: other (lethargic, orient to person, follows commands.) Progress - PLAN OF CARE/RESULTS Result Diagrams: 10/10/19 12:00 10/10/19 12:00 Departure - Departure Date of Disposition Decision: 10/10/19 Time of Disposition Decision: 15:15 DIAGNOSIS: Lethargic, Hypernatremia Pneumonia Qualifiers: Pneumonia type: due to unspecified organism Laterality: right Lung location: lower lobe of lung Qualified Code(s): J18.1 - Lobar pneumonia, unspecified organism Sepsis Qualifiers: Sepsis type: sepsis due to unspecified organism Sepsis acute organ dysfunction status: with acute organ dysfunction Severe sepsis acute organ dysfunction type: acute respiratory failure Acute respiratory failure type: unspecified Severe sepsis shock status: unspecified Qualified Code(s): A41.9 - Sepsis, unspecified organism; R65.20 - Severe sepsis without septic shock; J96.00 - Acute respiratory failure, unspecified whether with hypoxia or hypercapnia Disposition: ADMITTED INPATIENT 09 Certified Medical Emergency: Emergent Condition: Serious Referrals and Follow-Ups: June Patino MD [Primary Care Provider] - - Critical Care Note This patient required my direct & personal management of CC.: No Attestation - Physician/ PRISCILLA Attestation Patient care was provided by Advanced Practice Provider:: No The physician spent face to face time with patient:: Yes Advanced Practice Provider documentation review:: Supervising physician onsite and consulted in the evaluation and care of this patient. The physician did have a face to face encounter with the patient.
--- NOTE | 2019-10-10 12:02 | Diag Imaging Result Doc PS360 ---
EXAM: CHEST-PORTABLE 10/10/2019 HISTORY: Altered Mental Status TECHNIQUE: AP portable upright at 1150 COMMENT: There is platelike opacity in both lung bases which has diminished slightly since 09/07/2019. IMPRESSION: Bibasilar atelectasis particularly in the right lower lobe. Electronically signed by Perico Rust 10/10/2019 11:59 AM
[2019-10-10 12:14] LABS: BASO# 0.13 X1000 (0.0-0.2); BASO% 1.1 % (0.0-0.8); EOS# 0.19 X1000 (0.0-0.7); EOS% 1.6 % (0.0-10.0); HEMATOCRIT 36.9 % (42.0-52.0); HEMOGLOBIN 10.9 g/dL (14.0-18.0); IMM GRAN% 0.8 % (0.0-0.5); LYMPH# 2.53 X1000 (1.2-3.4); LYMPH% 20.8 % (20.5-51.1); MCH 24.5 PG (27-31); MCHC 29.5 g/dL (33-37); MCV 82.9 FL (81-99); MONO# 1.31 X1000 (0.11-0.59); MONO% 10.8 % (1.7-9.3); MPV 11.8 FL (7.4-10.4); NEUT# 7.89 X1000 (1.4-6.5); NEUT% 64.9 % (42.2-75.2); PLT 234 X1000 (130-400); RBC 4.45 XMIL (4.7-6.1); RDW 15.3 % (11.5-14.5); WBC 12.15 X1000 (4.8-10.8)
[2019-10-10 12:21] LABS: INR 1.07
[2019-10-10 12:22] LABS: PTT 28.9 Seconds (22.3-41.8)
--- NOTE | 2019-10-10 12:35 | Diag Imaging Result Doc PS360 ---
EXAM: CT HEAD W/O CONTRAST 10/10/2019 HISTORY: Head injury TECHNIQUE: This exam was performed using automated exposure control, adjustment of mA or kV according to patient size, and/or use of iterative reconstruction technique. COMMENT: There are dense calcifications in the vertebral and internal carotid arteries bilaterally. There is moderate cerebral atrophy. There is no evidence of mass effect, bleed, or abnormal extra-axial fluid collection. There is a lacune in the basal ganglia on the left. Compared to 10/20/2017 there has been no significant change in the appearance the brain. IMPRESSION: No evidence of acute intracranial disease. Electronically signed by Perico Rust 10/10/2019 12:32 PM
[2019-10-10 12:37] LABS: ALLEN TEST YES; BE 9.6 mmoll (-3.0-3.0); BLOOD TYPE ARTERIAL; HCO3-(ACT) 32.4 mmoll (20.0-26.0); METHB 1.2 % (0.0-1.5); O2(CT) 15.1 mL/dL (15.0-23.0); O2HB 97.1 % (95.0-99.0); PO2(98.6) 118 mmHg (60-100); SAMPLE BLOOD; SAO2 100.4 % (95.0-100.0); THB 10.9 g/dL (11.5-17.4); pH(98.6) 7.42 (7.35-7.45)
[2019-10-10 12:40] LABS: MODALITY CANNULA; PCO2(98.6) 55 mmHg (35-45)
[2019-10-10 12:41] LABS: AGAP 11; ALB/GLOB RATIO 0.7; ALBUMIN 3.5 g/dL (3.5-5.0); ALKALINE PHOSPHATASE 77 U/L (32-122); BUN 30 mg/dL (8-22); CALCIUM 9.8 mg/dL (8.8-10.2); CHLORIDE 113 mmol/L (98-107); CK PROFILE 59 U/L (24-204); COSMO 319; ESTIMATED GFR > 60; GLUCOSE 122 mg/dL (70-104); GOT 53 U/L (10-34); GPT 48 U/L (10-44); POTASSIUM 4.8 mmol/L (3.5-5.1); SODIUM 157 mmol/L (136-145); TCO2 33 mmol/L (25-35); TOTAL BILIRUBIN 0.44 mg/dL (0.20-1.00); TOTAL PROTEIN 8.7 g/dL (6.3-8.3)
[2019-10-10] MEDS ORDERED: VANCOMYCIN 1 GM/NS 1 GM/250 ML IVPB IV ONE (12:47)
[2019-10-10] MEDS ORDERED: D5 1/2 NS 500 ML IV ONE (12:56)
[2019-10-10] MEDS ORDERED: LEVAQUIN 750 MG/D5W 750 MG/150 ML IVPB IV SCH (13:00)
[2019-10-10 13:12] LABS: URINE SOURCE CLEAN CATCH
[2019-10-10 13:15] LABS: BILIRUBIN URINE NEGATIVE (NEGATIVE); BLOOD URINE NEGATIVE (NEGATIVE); COLOR YELLOW; GLUCOSE URINE NEGATIVE (NEGATIVE); KETONE URINE NEGATIVE (NEGATIVE); LEUKOCYTES URINE NEGATIVE (NEGATIVE); NITRITE URINE NEGATIVE (NEGATIVE); PROTEIN URINE 100 mg/dL (NEGATIVE); SP GRAVITY URINE 1.024; TURBIDITY URINE CLEAR (CLEAR); UR EPITHELIAL CELLS <10 /HPF (<10); URINE BACTERIA NEGATIVE /HPF; URINE RBC <10 /HPF (<10); URINE WBC <10 /HPF (<10); UROBILINOGEN URINE NORMAL (NORMAL)
--- NOTE | 2019-10-10 13:48 | EKG Report ---
Test Performed on : 10/10/2019 1:44:25 PM Test Reason : Altered Mental status Blood Pressure : / mmHG Vent. Rate : 087 BPM Atrial Rate : 087 BPM P-R Int : 144 ms QRS Dur : 076 ms QT Int : 366 ms P-R-T Axes : 038 -18 028 degrees QTc Int : 440 ms Normal sinus rhythm. Normal ECG When compared with ECG of 28-AUG-2019 03:01, Vent. rate has decreased BY 57 BPM Unconfirmed Result
--- NOTE | 2019-10-10 14:20 | HISTORY AND PHYSICAL ---
PRIMARY CARE PHYSICIAN: June Patino. CHIEF COMPLAINT: Increased weakness and abnormal labs at the correction. He had been on Levaquin after he was discharged from the hospital on 09/02/2019 for bacteremia. HISTORY OF PRESENTING ILLNESS: This is a 64-year-old male who presents to [facility] from [facility] with complaints of lethargy, increased work of breathing, and noted abnormal labs so they sent him to the emergency room to be evaluated. He was discharged from the hospital on 09/02/2019 after being in the hospital for about 3 weeks with a suspected bacteremia. He has not had any improvement in his symptoms since being back at the correction and was on Levaquin. He has had increased work of breathing according to the nursing staff at the correction. When he arrived, he had a temperature of 99 degrees, pulse 93, saturating 95% on room air. He did have a mild elevation in his white count at 12.15. His sodium was 157 with a chloride of 113. Plasma lactate was normal at 2.1. His chest x-ray showed bibasilar atelectasis, particularly in the right lower lobe so it is suspicious for some aspiration pneumonia. He has a PEG tube as well for his nutritional needs so he will be admitted for further evaluation and treatment. PAST MEDICAL HISTORY: Hypertension, CVA, alcohol use disorder, seizures, chronic hepatitis B, and multiple myeloma. PAST SURGICAL HISTORY: PEG tube placement. FAMILY HISTORY: Reviewed and noncontributory. SOCIAL HISTORY: Currently resides at the correction. He is a former smoker, none currently. He has a previous history of ETOH use and abuse, but none currently. He has a history of occasional marijuana use, but none currently. ALLERGIES: Penicillin and sulfa. HOME MEDICATIONS: 1. Acetaminophen 650 mg per PEG q.4 hours p.r.n. 2. Tylenol Arthritis Pain 650 mg p.o. b.i.d. 3. Mucomyst inhalation b.i.d. 4. DuoNeb q.6 hours will be held. 5. Vitamin C 500 mg p.o. b.i.d. 6. Aspirin 81 mg per PEG daily. 7. ointment topically t.i.d. 8. Peridex 30 mL p.o. b.i.d. 9. Clotrimazole betamethasone topically b.i.d. 10. Valium 2.5 mg per PEG t.i.d. 11. Donepezil 10 mg per PEG at bedtime. 12.omeprazole 40 mg per PEG daily. 13. Folic Acid 1 mg per PEG every morning. 14. Culturelle for kids 1 packet per PEG daily. 15. Keppra 500 mg per PEG b.i.d. 16. Levaquin 750 mg p.o. daily will be held. 17. Milk of Magnesia per PEG Thursday, Thursday, Thursday. 18. Memantine 10 mg per PEG daily. 19. Calmoseptine ointment topically p.r.n. 20. Metoprolol 12.5 mg per PEG daily. 21. Centrum multivitamin 15 mL per PEG b.i.d. 22. Vaseline topically daily. 23. Potassium chloride 10% liquid 20 mEq per PEG every morning. 24. Protein fortifier 30 mL p.o. b.i.d. 25. Seroquel 50 mg per PEG b.i.d. and 100 mg per PEG at bedtime p.r.n. 26. Risperidone 1 mg per PEG b.i.d. 27. Tenofovir 300 mg per PEG daily. 28. Thiamine 100 mg per PEG every morning. 29. Zinc sulfate 220 mg p.o. daily. LABORATORY DATA: White blood cell count of 12.15, hemoglobin 10.9, hematocrit 36.9, platelets 234,000 and PT/INR of 14 and 1.07. ABG on 4 L via nasal cannula showed a pH of 7.42, pCO2 55, PO2 of 118, and bicarb 32.4. Sodium 157, potassium 4.8, chloride 113, CO2 33, BUN of 30, and creatinine 1, glucose 122. AST of 53, ALT 48, alkaline phosphatase 77. Plasma lactate of 2.1. Urinalysis was negative. Serum alcohol showed none detected. Chest x-ray showed bibasilar atelectasis, particularly in the right lower lobe. Head CT showed no evidence of acute intracranial disease. REVIEW OF SYSTEMS: Unable to obtain from patient. PHYSICAL EXAMINATION: On arrival, he had a temperature of 99 degrees, pulse 93, respirations 20, blood pressure 111/81, and saturating 95% on room air. GENERAL: This is a 64-year-old male lying in the bed unable to answer questions appropriately. Family at bedside and review of medical records to obtain history. HEENT: Normocephalic, atraumatic. Normal ENT inspection. He does have some dry mucous membranes noted. EYES: Pupils are equal, round, and reactive to light and accommodation. Extraocular movements are intact. NECK: Normal inspection. Normal range of motion. LUNGS: Decreased breath sounds bilaterally. He was tachypneic on arrival but has improved at time of assessment. Equal lung expansion. Chest wall movement. O2 via nasal cannula in use. HEART: Regular rate and rhythm. No murmurs, rubs, or gallops. ABDOMEN: Soft, nontender, and nondistended. Bowel sounds are present x4 quadrants. He has a PEG tube in place. MUSCULOSKELETAL: Normal inspection. NEUROLOGIC: Cranial nerves appear grossly intact. ASSESSMENT: 1. Possible aspiration pneumonia. 2. Hypernatremia. 3. Tachypnea. 4. History of CVA. PLAN: He will be admitted to the medical unit. Placed on telemetry O2 per protocol. Continue home medications. He will be n.p.o. We will consult dietitian to make sure are meeting his nutritional needs and water supplementation correctly. Meantime, we will place him on normal saline at 75 mL an hour. Zosyn 3.375 g IV q.6. We will recheck CBC and BMP in the morning. Further orders after seen by attending. Dictated by TARIK Gale for Markos Stanley MD cc: TARIK Gale MD [facility]
--- NOTE | 2019-10-10 15:47 | ED EKG INTERP ---
EKG Interpretation - EKG Time of EKG reading by physician:: 13:44 EKG Read and Signed by:: Carlo Silverio EKG Interpretation (*Must complete 3 of following elements*): Normal Rate: 87 Rhythm: sinus TN Interval: normal ST Wave: normal Attestation - Physician/ PRISCILLA Attestation Patient care was provided by Advanced Practice Provider:: No The physician spent face to face time with patient:: Yes Advanced Practice Provider documentation review:: Supervising physician onsite and consulted in the evaluation and care of this patient. The physician did have a face to face encounter with the patient.
[2019-10-10] MEDS ORDERED: SEROQUEL PEG PRN (16:15)
[2019-10-10] MEDS ORDERED: TYLENOL PEG PRN (16:15)
[2019-10-10] MEDS ORDERED: CALMOSEPTINE OINTMENT TOP PRN (16:15)
[2019-10-10] MEDS ORDERED: ZOFRAN IV PRN (16:15)
--- NOTE | 2019-10-10 17:10 | PROGRESS NOTE ---
DATE: 10/10/2019 SUBJECTIVE: Patient has no major complaints. He came in. He is status post stroke and I think he has a history of alcohol use, multiple myeloma. Came in with possible aspiration pneumonia and he was also very hypernatremic possibly from dehydration based on his BUN and creatinine is what kind looks like and there was a questionable pneumonia. The patient will be admitted for treatment, antibiotics and we will continue to follow closely, we will hydrate him to help with sodium correction and restore volume. He has gotten some bolusing fluid so we will continue to monitor sodium levels and see how things look. cc: Markos Stanley MD MTDD
[2019-10-10] MEDS: DUONEB (A & A) INH SCH ×3 (17:20→23:25)
[2019-10-10] MEDS: LOVENOX SUBQ SCH (17:29)
[2019-10-10] MEDS: ZOSYN 3.375 GM in NS 50 ML IV SCH ×2 (17:29→22:02)
[2019-10-10] MEDS: PERIDEX MT SCH (17:30)
[2019-10-10] MEDS: MILK OF MAGNESIA PEG SCH (17:30)
[2019-10-10] MEDS: NS 1,000 ML IV SCH (17:30)
[2019-10-10 18:30] LABS: AGAP 10; BUN 28 mg/dL (8-22); CALCIUM 9.6 mg/dL (8.8-10.2); CHLORIDE 113 mmol/L (98-107); COSMO 310; CREATININE 0.9 mg/dL (0.7-1.2); ESTIMATED GFR > 60; GLUCOSE 87 mg/dL (70-104); POTASSIUM 3.8 mmol/L (3.5-5.1); SODIUM 154 mmol/L (136-145); TCO2 31 mmol/L (25-35)
[2019-10-10] MEDS: PATIENT'S OWN MED TOP SCH (19:12)
[2019-10-10] MEDS: MUCOMYST 20% INH SCH (20:10)
[2019-10-10] MEDS: KEPPRA PEG SCH (22:03)
[2019-10-10] MEDS: ARICEPT PEG SCH (22:03)
[2019-10-10] MEDS: TYLENOL ARTHRITIS PO SCH (22:03)
[2019-10-10] MEDS: VALIUM PEG SCH (22:03)
[2019-10-10] MEDS: THERAGRAN LIQUID PEG SCH (22:03)
[2019-10-10] MEDS: PATIENT'S OWN MED PO SCH (22:04)
[2019-10-11] MEDS: LOTRISONE CREAM TOP SCH ×3 (01:11→22:30)
[2019-10-11] MEDS: DUONEB (A & A) INH SCH ×6 (03:55→23:47)
[2019-10-11] MEDS: ZOSYN 3.375 GM in NS 50 ML IV SCH ×4 (05:17→22:30)
[2019-10-11] MEDS: NS 1,000 ML IV SCH (05:18)
[2019-10-11] MEDS: VALIUM PEG SCH ×3 (05:18→22:30)
[2019-10-11 07:23] LABS: BASO# 0.07 X1000 (0.0-0.2); BASO% 0.8 % (0.0-0.8); EOS# 0.27 X1000 (0.0-0.7); HEMATOCRIT 31.1 % (42.0-52.0); HEMOGLOBIN 9.2 g/dL (14.0-18.0); IMM GRAN# 0.19 X1000 (0.0-0.04); IMM GRAN% 2.1 % (0.0-0.5); LYMPH# 2.06 X1000 (1.2-3.4); MCH 24.5 PG (27-31); MCHC 29.6 g/dL (33-37); MCV 82.7 FL (81-99); MONO# 1.29 X1000 (0.11-0.59); MONO% 14.4 % (1.7-9.3); MPV 12.2 FL (7.4-10.4); NEUT# 5.09 X1000 (1.4-6.5); NEUT% 56.7 % (42.2-75.2); PLT 208 X1000 (130-400); RBC 3.76 XMIL (4.7-6.1); RDW 15.3 % (11.5-14.5); WBC 8.97 X1000 (4.8-10.8)
[2019-10-11 07:35] LABS: MAGNESIUM 1.7 mg/dL (1.5-2.7); PHOSPHORUS 4.3 mg/dL (2.7-4.5); PREALBUMIN 17.6 mg/dL (20-40)
[2019-10-11 07:38] LABS: AGAP 10; BUN 27 mg/dL (8-22); CALCIUM 8.8 mg/dL (8.8-10.2); CHLORIDE 116 mmol/L (98-107); COSMO 313; CREATININE 0.7 mg/dL (0.7-1.2); ESTIMATED GFR > 60; GLUCOSE 108 mg/dL (70-104); POTASSIUM 3.4 mmol/L (3.5-5.1); SODIUM 155 mmol/L (136-145); TCO2 29 mmol/L (25-35)
[2019-10-11] MEDS: MUCOMYST 20% INH SCH ×2 (07:48→20:23)
[2019-10-11] MEDS: ASPIRIN PEG SCH (09:43)
[2019-10-11] MEDS: RISPERDAL M-TAB PEG SCH ×2 (09:43→16:33)
[2019-10-11] MEDS: CULTURELLE FOR KIDS PEG SCH (09:43)
[2019-10-11] MEDS: NAMENDA PEG SCH (09:43)
[2019-10-11] MEDS: ZINC SULFATE PO SCH (09:44)
[2019-10-11] MEDS: THERAGRAN LIQUID PEG SCH ×2 (09:44→22:30)
[2019-10-11] MEDS: NEXIUM PACKET PEG SCH (09:44)
[2019-10-11] MEDS: TYLENOL ARTHRITIS PO SCH ×2 (09:44→22:30)
[2019-10-11] MEDS: POTASSIUM CHLORIDE 10% LIQUID PEG SCH (09:44)
[2019-10-11] MEDS: PERIDEX MT SCH ×2 (09:44→16:34)
[2019-10-11] MEDS: LOPRESSOR PEG SCH (09:45)
[2019-10-11] MEDS: VITAMIN B-1 PEG SCH (09:45)
[2019-10-11] MEDS: FOLIC ACID PEG SCH (09:45)
[2019-10-11] MEDS: VITAMIN C PO SCH ×2 (09:46→16:33)
[2019-10-11] MEDS: SEROQUEL PEG SCH ×2 (09:46→16:33)
[2019-10-11] MEDS: KEPPRA PEG SCH ×2 (09:46→22:30)
[2019-10-11] MEDS: PATIENT'S OWN MED PO SCH (10:24)
[2019-10-11] MEDS: PATIENT'S OWN MED TOP SCH ×3 (10:24→16:34)
[2019-10-11] MEDS: VASELINE TOP SCH (10:25)
[2019-10-11] MEDS: D5 1/2 NS 1,000 ML IV SCH (11:41)
--- NOTE | 2019-10-11 15:57 | PROGRESS NOTE ---
DATE: 10/11/2019 SUBJECTIVE: Patient has no major complaints. He seems a bit better today, but he is still not really responsive. OBJECTIVE: Blood pressure 115/75, heart rate 83, respiratory 16, temperature 97.9 degrees, 100% on 2 L.Cardiovascular: Regular rate and rhythm. Pulmonary: Bilateral breath sounds clear to auscultation. GI: Soft, nontender, nondistended. Bowel sounds are positive. LABORATORY DATA: White count is 8, hemoglobin and hematocrit 9 and 31, platelets 208,000. Sodium 155, potassium 3.4. PROBLEM LIST: 1. Hypernatremia, likely due to free water deficit. We will continue free water flushes and he is on dextrose. Repeat his levels this evening. I will continue to monitor closely. 2. Aspiration-type pneumonia. He is on antibiotics and breathing treatments. Speech eval is stable. He does not have elevated. He is on Zosyn. This will be day 1 technically of treatment. 3. CVA with dementia. He is a bit far off his baseline. Not sure if we may need to back down on his Valium a little bit. We will continue to monitor. DISPOSITION: Pending clinical status. We will continue to follow. cc: Markos Stanley MD
[2019-10-11 16:27] LABS: ESTIMATED GFR > 60
[2019-10-11 16:28] LABS: AGAP 8; BUN 24 mg/dL (8-22); CALCIUM 8.7 mg/dL (8.8-10.2); CHLORIDE 120 mmol/L (98-107); COSMO 317; CREATININE 0.8 mg/dL (0.7-1.2); GLUCOSE 131 mg/dL (70-104); POTASSIUM 3.8 mmol/L (3.5-5.1); SODIUM 157 mmol/L (136-145); TCO2 29 mmol/L (25-35)
[2019-10-11] MEDS: LOVENOX SUBQ SCH (16:33)
[2019-10-11] MEDS: NON-FORMULARY MED PEG SCH (17:59)
[2019-10-11] MEDS: ARICEPT PEG SCH (22:30)
[2019-10-12] MEDS: PATIENT'S OWN MED PO SCH ×3 (00:10→21:48)
[2019-10-12] MEDS: DUONEB (A & A) INH SCH ×6 (04:04→23:40)
[2019-10-12] MEDS: ZOSYN 3.375 GM in NS 50 ML IV SCH ×4 (05:22→21:47)
[2019-10-12] MEDS: D5 1/2 NS 1,000 ML IV SCH (05:22)
[2019-10-12 08:28] LABS: BASO# 0.08 X1000 (0.0-0.2); EOS# 0.38 X1000 (0.0-0.7); HEMOGLOBIN 9.4 g/dL (14.0-18.0); IMM GRAN# 0.59 X1000 (0.0-0.04); IMM GRAN% 7.7 % (0.0-0.5); LYMPH# 2.29 X1000 (1.2-3.4); LYMPH% 29.9 % (20.5-51.1); MCH 24.5 PG (27-31); MCHC 29.4 g/dL (33-37); MCV 83.6 FL (81-99); MONO# 0.91 X1000 (0.11-0.59); MONO% 11.9 % (1.7-9.3); MPV 12.1 FL (7.4-10.4); NEUT# 3.41 X1000 (1.4-6.5); NEUT% 44.5 % (42.2-75.2); PLT 191 X1000 (130-400); RBC 3.83 XMIL (4.7-6.1); RDW 15.4 % (11.5-14.5); WBC 7.66 X1000 (4.8-10.8)
[2019-10-12] MEDS: MUCOMYST 20% INH SCH ×2 (08:31→19:58)
[2019-10-12 08:35] LABS: AGAP 9; BUN 19 mg/dL (8-22); CALCIUM 8.5 mg/dL (8.8-10.2); CHLORIDE 114 mmol/L (98-107); COSMO 307; CREATININE 0.7 mg/dL (0.7-1.2); ESTIMATED GFR > 60; GLUCOSE 118 mg/dL (70-104); POTASSIUM 3.8 mmol/L (3.5-5.1); SODIUM 153 mmol/L (136-145); TCO2 30 mmol/L (25-35)
[2019-10-12] MEDS: CULTURELLE FOR KIDS PEG SCH (09:50)
[2019-10-12] MEDS: ASPIRIN PEG SCH (09:50)
[2019-10-12] MEDS: RISPERDAL M-TAB PEG SCH ×2 (09:50→15:49)
[2019-10-12] MEDS: VITAMIN B-1 PEG SCH (09:50)
[2019-10-12] MEDS: FOLIC ACID PEG SCH (09:51)
[2019-10-12] MEDS: KEPPRA PEG SCH ×2 (09:51→21:48)
[2019-10-12] MEDS: TYLENOL ARTHRITIS PO SCH ×2 (09:51→21:47)
[2019-10-12] MEDS: LOPRESSOR PEG SCH (09:51)
[2019-10-12] MEDS: SEROQUEL PEG SCH ×2 (09:51→15:49)
[2019-10-12] MEDS: VITAMIN C PO SCH ×2 (09:51→15:49)
[2019-10-12] MEDS: ZINC SULFATE PO SCH (09:51)
[2019-10-12] MEDS: NEXIUM PACKET PEG SCH (09:51)
[2019-10-12] MEDS: NAMENDA PEG SCH (09:51)
[2019-10-12] MEDS: PERIDEX MT SCH ×2 (09:52→18:31)
[2019-10-12] MEDS: POTASSIUM CHLORIDE 10% LIQUID PEG SCH (09:52)
[2019-10-12] MEDS: THERAGRAN LIQUID PEG SCH ×2 (09:52→21:48)
[2019-10-12] MEDS: LOTRISONE CREAM TOP SCH ×2 (09:53→21:47)
[2019-10-12] MEDS: PATIENT'S OWN MED TOP SCH ×3 (09:53→18:30)
[2019-10-12] MEDS: VALIUM PEG SCH ×2 (09:56→21:47)
[2019-10-12 10:04] LABS: BANDS 8 % (0-1); LYMPHS 24 % (21-51); MONO 6 % (1-9); SEGS 54 % (42-75)
[2019-10-12] MEDS: VASELINE TOP SCH (10:22)
[2019-10-12] MEDS: D5W 1,000 ML IV SCH ×2 (12:03→23:51)
[2019-10-12] MEDS: LOVENOX SUBQ SCH (15:49)
[2019-10-12] MEDS: MILK OF MAGNESIA PEG SCH (15:49)
--- NOTE | 2019-10-12 18:14 | PROGRESS NOTE ---
DATE: 10/12/2019 SUBJECTIVE: Patient is still kind of lethargic. He does arouse somewhat, but other than that he is pretty out of it. OBJECTIVE: Blood pressure 118/68, heart rate 62, respiratory 18, and temperature 98 degrees.Cardiovascular: Regular rate and rhythm. Pulmonary: Bilateral breath sounds. Clear to auscultation. GI: Soft, nontender, and nondistended. Bowel sounds are positive. LABORATORY DATA: White count is 7, hemoglobin and hematocrit 9 and 32, and platelets 191,000. Sodium is down to 153, which is not much of a drop, but it is better than admission. PROBLEM LIST: 1. Hypernatremia. We will continue free water flushes. I will probably check urine electrolytes and follow. We will continue to monitor closely. We will continue D5 infusion and free water flushes. Monitor levels. 2. Aspiration-type pneumonia. He is on Zosyn. This will be day 2. 3. Seizure disorder is stable. Anticipate discharge soon, but maybe at least a couple of more days away. cc: Markos Stanley MD
[2019-10-12] MEDS: NON-FORMULARY MED PEG SCH (18:30)
[2019-10-12] MEDS: ARICEPT PEG SCH (21:47)
[2019-10-13] MEDS: DUONEB (A & A) INH SCH ×6 (04:00→23:43)
[2019-10-13] MEDS: ZOSYN 3.375 GM in NS 50 ML IV SCH ×4 (05:25→23:20)
[2019-10-13] MEDS: MUCOMYST 20% INH SCH ×2 (07:58→19:34)
[2019-10-13] MEDS: PATIENT'S OWN MED PO SCH ×3 (08:20→23:20)
[2019-10-13 08:48] LABS: BASO# 0.22 X1000 (0.0-0.2); BASO% 2.8 % (0.0-0.8); EOS# 0.24 X1000 (0.0-0.7); EOS% 3.1 % (0.0-10.0); HEMATOCRIT 32.9 % (42.0-52.0); HEMOGLOBIN 9.7 g/dL (14.0-18.0); IMM GRAN# 0.67 X1000 (0.0-0.04); IMM GRAN% 8.5 % (0.0-0.5); LYMPH# 2.37 X1000 (1.2-3.4); LYMPH% 30.2 % (20.5-51.1); MCH 24.6 PG (27-31); MCHC 29.5 g/dL (33-37); MCV 83.3 FL (81-99); MONO# 0.75 X1000 (0.11-0.59); MONO% 9.6 % (1.7-9.3); MPV 11.3 FL (7.4-10.4); NEUT# 3.59 X1000 (1.4-6.5); NEUT% 45.8 % (42.2-75.2); PLT 178 X1000 (130-400); RBC 3.95 XMIL (4.7-6.1); RDW 15.4 % (11.5-14.5); WBC 7.84 X1000 (4.8-10.8)
[2019-10-13 09:19] LABS: AGAP 9; BUN 14 mg/dL (8-22); CALCIUM 8.4 mg/dL (8.8-10.2); CHLORIDE 107 mmol/L (98-107); COSMO 291; CREATININE 0.7 mg/dL (0.7-1.2); ESTIMATED GFR > 60; GLUCOSE 104 mg/dL (70-104); POTASSIUM 4.1 mmol/L (3.5-5.1); SODIUM 146 mmol/L (136-145); TCO2 30 mmol/L (25-35)
[2019-10-13] MEDS: CULTURELLE FOR KIDS PEG SCH (10:06)
[2019-10-13] MEDS: RISPERDAL M-TAB PEG SCH ×2 (10:06→16:46)
[2019-10-13] MEDS: SEROQUEL PEG SCH ×2 (10:07→16:46)
[2019-10-13] MEDS: TYLENOL ARTHRITIS PO SCH ×2 (10:07→23:19)
[2019-10-13] MEDS: PERIDEX MT SCH ×2 (10:07→16:47)
[2019-10-13] MEDS: VALIUM PEG SCH ×2 (10:07→23:20)
[2019-10-13] MEDS: ZINC SULFATE PO SCH (10:07)
[2019-10-13] MEDS: NAMENDA PEG SCH (10:08)
[2019-10-13] MEDS: FOLIC ACID PEG SCH (10:08)
[2019-10-13] MEDS: LOPRESSOR PEG SCH (10:08)
[2019-10-13] MEDS: ASPIRIN PEG SCH (10:08)
[2019-10-13] MEDS: KEPPRA PEG SCH ×2 (10:08→23:20)
[2019-10-13] MEDS: VITAMIN B-1 PEG SCH (10:08)
[2019-10-13] MEDS: POTASSIUM CHLORIDE 10% LIQUID PEG SCH (10:08)
[2019-10-13] MEDS: VITAMIN C PO SCH ×2 (10:09→16:46)
[2019-10-13] MEDS: D5W 1,000 ML IV SCH ×2 (10:09→18:44)
[2019-10-13] MEDS: NEXIUM PACKET PEG SCH (10:09)
[2019-10-13] MEDS: LOTRISONE CREAM TOP SCH ×2 (10:09→23:19)
[2019-10-13] MEDS: PATIENT'S OWN MED TOP SCH ×3 (10:10→18:44)
[2019-10-13] MEDS: THERAGRAN LIQUID PEG SCH ×2 (10:10→23:21)
[2019-10-13] MEDS: VASELINE TOP SCH (10:11)
--- NOTE | 2019-10-13 15:17 | Diag Imaging Result Doc PS360 ---
EXAM: BA SWALLOW W/VIDEO SPEECH THER INDICATION: dysphagia TECHNIQUE: COMPARISON: None. FINDINGS: Upon administering thin liquid barium, there was very poor initiation of swallowing reflex. Barium flowed passively into the valleculae and piriform sinuses before swallowing was initiated. Upon swallowing, there was aspiration of a small amount of thin liquid barium. No cough reflex was elicited. The study was then stopped for safety concerns. IMPRESSION: Poor initiation of swallowing reflex and silent aspiration of thin liquid barium. Please see speech pathology report for full details. Electronically signed by Hossein Lu 10/13/2019 3:15 PM
[2019-10-13] MEDS: LOVENOX SUBQ SCH (16:46)
[2019-10-13] MEDS: NON-FORMULARY MED PEG SCH (16:46)
--- NOTE | 2019-10-13 17:53 | PROGRESS NOTE ---
DATE: 10/13/2019 SUBJECTIVE: Patient has no major complaints. He is verbal today at least. This is the first time he has been verbal in several days. OBJECTIVE: Vital signs: Blood pressure 109/65, heart rate 72, respiratory rate 18, temperature degrees 97.2, 100% on 2 L. Cardiovascular: Regular rate and rhythm. Pulmonary: Bilateral breath sounds. Clear to auscultation. GI: Soft, nontender, nondistended. Bowel sounds are positive. LABORATORY: White count 7, hemoglobin and hematocrit 9 and 32, platelets 178,000. Sodium is down to 146. PROBLEM LIST: 1. Hypernatremia. That seems improved. We will continue to monitor. Continue D5. Continue free water flushes. 2. Aspiration-type pneumonia. He is on Zosyn. He is on pulmonary toilet. We will do strict aspiration precautions. 3. Seizure disorder is controlled on current medications. 4. Dementia with encephalopathy is stable. DISPOSITION: Possibly home in the next 1 to 2 days, pending clinical status. cc: Markos Stanley MD
[2019-10-13] MEDS: ARICEPT PEG SCH (23:20)
[2019-10-14] MEDS: D5W 1,000 ML IV SCH ×2 (01:32→05:07)
[2019-10-14] MEDS: DUONEB (A & A) INH SCH ×6 (03:23→23:46)
[2019-10-14] MEDS: ZOSYN 3.375 GM in NS 50 ML IV SCH ×2 (05:07→11:06)
[2019-10-14 07:05] LABS: HEMATOCRIT 31.2 % (42.0-52.0); HEMOGLOBIN 9.4 g/dL (14.0-18.0); MCH 24.7 PG (27-31); MCHC 30.1 g/dL (33-37); MCV 81.9 FL (81-99); MPV 11.1 FL (7.4-10.4); RBC 3.81 XMIL (4.7-6.1); RDW 15.1 % (11.5-14.5); WBC 9.2 X1000 (4.8-10.8)
[2019-10-14 07:36] LABS: AGAP 5; BUN 9 mg/dL (8-22); CALCIUM 8.5 mg/dL (8.8-10.2); CHLORIDE 105 mmol/L (98-107); COSMO 285; CREATININE 0.6 mg/dL (0.7-1.2); ESTIMATED GFR > 60; GLUCOSE 130 mg/dL (70-104); SODIUM 143 mmol/L (136-145); TCO2 33 mmol/L (25-35)
[2019-10-14 07:45] LABS: ALBUMIN 2.8 g/dL (3.5-5.0); MAGNESIUM 1.8 mg/dL (1.5-2.7); PHOSPHORUS 2.4 mg/dL (2.7-4.5)
[2019-10-14] MEDS: MUCOMYST 20% INH SCH ×2 (08:01→19:58)
[2019-10-14] MEDS: PERIDEX MT SCH ×2 (11:03→16:30)
[2019-10-14] MEDS: LOTRISONE CREAM TOP SCH ×2 (11:03→20:16)
[2019-10-14] MEDS: THERAGRAN LIQUID PEG SCH ×2 (11:03→20:17)
[2019-10-14] MEDS: NEXIUM PACKET PEG SCH (11:04)
[2019-10-14] MEDS: RISPERDAL M-TAB PEG SCH ×2 (11:04→16:30)
[2019-10-14] MEDS: POTASSIUM CHLORIDE 10% LIQUID PEG SCH (11:04)
[2019-10-14] MEDS: CULTURELLE FOR KIDS PEG SCH (11:04)
[2019-10-14] MEDS: ASPIRIN PEG SCH (11:04)
[2019-10-14] MEDS: FOLIC ACID PEG SCH (11:05)
[2019-10-14] MEDS: ZINC SULFATE PO SCH (11:05)
[2019-10-14] MEDS: VITAMIN B-1 PEG SCH (11:05)
[2019-10-14] MEDS: KEPPRA PEG SCH ×2 (11:05→20:15)
[2019-10-14] MEDS: VITAMIN C PO SCH ×2 (11:05→16:30)
[2019-10-14] MEDS: SEROQUEL PEG SCH ×2 (11:05→16:30)
[2019-10-14] MEDS: NAMENDA PEG SCH (11:05)
[2019-10-14] MEDS: LOPRESSOR PEG SCH (11:06)
[2019-10-14] MEDS: VALIUM PEG SCH ×2 (11:06→20:14)
[2019-10-14] MEDS: VASELINE TOP SCH (11:07)
[2019-10-14] MEDS: PATIENT'S OWN MED TOP SCH ×2 (11:07→17:58)
[2019-10-14] MEDS: PATIENT'S OWN MED PO SCH (11:07)
[2019-10-14] MEDS: TYLENOL ARTHRITIS PO SCH ×2 (11:11→20:15)
[2019-10-14] MEDS ORDERED: SODIUM PHOSPHATE 40 MEQ in NS 250 ML IV ONE ×2 (12:30→14:22)
[2019-10-14] MEDS: MILK OF MAGNESIA PEG SCH (16:30)
[2019-10-14] MEDS: NON-FORMULARY MED PEG SCH (16:30)
[2019-10-14] MEDS: LOVENOX SUBQ SCH (16:30)
[2019-10-14] MEDS: MAXIPIME 1 GM in NS 50 ML IV SCH (17:00)
--- NOTE | 2019-10-14 17:03 | DISCHARGE SUMMARY ---
ADMISSION DATE: 10/10/2019 DISCHARGE DATE: 10/15/2019 DISCHARGE DIAGNOSES: 1. Aspiration-type pneumonia. 2. Hypernatremia. 3. Dysphagia. CONSULTATIONS: None. HISTORY/HOSPITAL COURSE: This is a 64-year-old male with a history of multiple CVAs and associated vascular dementia. He had some bacteremia. He has a seizure disorder. In any case, he was placed on treatment. His initial sodium was about 157, which was felt due to free water restriction associated with his tube feeds. This patient, I would recommend that we do not bolus feed him and do not give him unlimited free water. Otherwise, he is going to be admitted over and over again. We have changed his tube feeds based on the recommendations of the tool mechanic here, and I would continue that in the residential. That is my recommendation. In any case, after several days of D5 and free water flushes, his sodium finally came down to normal on the . We are going to observe him off D5 and anticipate discharge tomorrow. This was not an easy problem to correct, but it is easy problem to avoid if we give this patient free water with his tube feeds. He had a modified speech barium because he is allowed to eat recreationally. He should not eat recreationally. He will continue to aspirate. Poor initiation of swallowing reflex based on his modified barium swallow. Silent aspiration of thin liquid barium. Do not allow this patient to eat recreationally. The patient was otherwise stable. Despite a penicillin allergy, he was given Zosyn here, which he had no reaction to and seemed to be doing okay, but we will discharge him on different antibiotics. Levaquin is probably not the best option since he has seizures. DISCHARGE MEDICATIONS: Seroquel 100 at bedtime, acetaminophen, aspirin 81 daily, Aricept 10 at bedtime, folic acid 1 daily, Keppra 500 b.i.d., protein b.i.d., memantine 10 daily, metoprolol 12.5 daily, Nexium 40 daily, Peridex, Klor-Con 20 daily, Risperdal 1 b.i.d., Seroquel 50 b.i.d., tenofovir 300 daily, Valium 2.5 t.i.d., vitamin B1 at 100 daily, vitamin C 500 b.i.d., zinc 220 daily, Flagyl 500 t.i.d. per PEG for 7 days, Omnicef 300 b.i.d. for 7 days, and Mucomyst. DISCHARGE INSTRUCTIONS: Please make sure his tube feeds are done according to what we recommended, continuously not bolus, and the free water as described, 180 mL every 4 hours. TIME SPENT: This was a 32-minute discharge. cc: Markos Stanley MD
[2019-10-14] MEDS: FLAGYL 500 MG/NS 500 MG/100 ML IVPB IV SCH ×2 (17:42→23:52)
--- NOTE | 2019-10-14 18:26 | PROGRESS NOTE ---
DATE: 10/14/2019 SUBJECTIVE: Patient has no major complaints. OBJECTIVE: Blood pressure 91/59, heart rate of 89, respiratory rate 16, temperature 98.2 degrees, 97% on 2 L. Cardiovascular: Regular rate and rhythm. Pulmonary: Bilateral breath sounds. Clear to auscultation. Gastrointestinal: Soft, nontender, nondistended. Bowel sounds are positive. LABORATORY DATA: White count 9, hemoglobin and hematocrit 9 and 31, platelets 210,000. Basic was normal. Sodium is down to 143. Alkaline phosphatase was 2.4. PROBLEM LIST: 1. Hypernatremia. That is corrected with D5 and free water. We just need to make sure he gets an appropriate amount of free water with his tube feeds. 2. Aspiration-type pneumonia. He seems to be doing fine. No white count. No fevers. I think he should be strictly NPO because of aspiration risk. I do not think there should be recreational eating because he is too high risk for aspiration. DISPOSITION: I think if he is stable, he probably could go out tomorrow. I am going to try to get his orders written for that purpose. cc: Markos Stanley MD
[2019-10-14] MEDS: ARICEPT PEG SCH (20:15)
[2019-10-15] MEDS: MAXIPIME 1 GM in NS 50 ML IV SCH (02:45)
[2019-10-15] MEDS: PATIENT'S OWN MED PO SCH ×2 (02:48→08:16)
[2019-10-15] MEDS: DUONEB (A & A) INH SCH ×3 (03:12→11:30)
[2019-10-15] MEDS: FLAGYL 500 MG/NS 500 MG/100 ML IVPB IV SCH (07:53)
[2019-10-15] MEDS: KEPPRA PEG SCH (07:54)
[2019-10-15] MEDS: NAMENDA PEG SCH ×2 (07:54→08:15)
[2019-10-15] MEDS: FOLIC ACID PEG SCH ×2 (07:55→08:15)
[2019-10-15] MEDS: TYLENOL ARTHRITIS PO SCH ×2 (07:55→08:18)
[2019-10-15] MEDS: LOPRESSOR PEG SCH ×2 (07:55→08:15)
[2019-10-15] MEDS: VALIUM PEG SCH ×2 (07:55→08:18)
[2019-10-15] MEDS: VITAMIN B-1 PEG SCH ×2 (07:55→08:18)
[2019-10-15] MEDS: RISPERDAL M-TAB PEG SCH (07:56)
[2019-10-15] MEDS: SEROQUEL PEG SCH (07:56)
[2019-10-15] MEDS: ZINC SULFATE PO SCH (07:56)
[2019-10-15] MEDS: ASPIRIN PEG SCH ×2 (07:56→08:14)
[2019-10-15] MEDS: VITAMIN C PO SCH (07:56)
[2019-10-15] MEDS: CULTURELLE FOR KIDS PEG SCH ×2 (07:57→08:14)
[2019-10-15] MEDS: NEXIUM PACKET PEG SCH ×2 (07:57→08:15)
[2019-10-15] MEDS: PATIENT'S OWN MED TOP SCH ×2 (08:15→13:01)
[2019-10-15] MEDS: PERIDEX MT SCH (08:16)
[2019-10-15] MEDS: THERAGRAN LIQUID PEG SCH (08:17)
[2019-10-15] MEDS: LOTRISONE CREAM TOP SCH (08:19)
[2019-10-15] MEDS: VASELINE TOP SCH (08:19)
[2019-10-15] MEDS: MUCOMYST 20% INH SCH (08:24)
[2019-10-15] MEDS: POTASSIUM CHLORIDE 10% LIQUID PEG SCH (08:26)
--- NOTE | 2019-10-15 09:00 | Diag Imaging Result Doc PS360 ---
EXAM: CHEST-PORTABLE 10/15/2019 HISTORY: dyspnea TECHNIQUE: Erect AP portable at 0828 COMMENT: There is a is suboptimal inspiration. There is apparent platelike atelectasis in both lung bases. This is slightly worse on the left compared to 10/10/2019. IMPRESSION: Bibasilar atelectasis. Electronically signed by Perico Rust 10/15/2019 8:58 AM
[2019-10-15 09:38] LABS: AGAP 7; ALB/GLOB RATIO 0.6; ALBUMIN 2.6 g/dL (3.5-5.0); ALKALINE PHOSPHATASE 56 U/L (32-122); BUN 9 mg/dL (8-22); CALCIUM 8.2 mg/dL (8.8-10.2); CHLORIDE 105 mmol/L (98-107); COSMO 282; CREATININE 0.6 mg/dL (0.7-1.2); ESTIMATED GFR > 60; GLUCOSE 127 mg/dL (70-104); GOT 30 U/L (10-34); GPT 23 U/L (10-44); MAGNESIUM 1.7 mg/dL (1.5-2.7); PHOSPHORUS 2.3 mg/dL (2.7-4.5); SODIUM 141 mmol/L (136-145); TCO2 29 mmol/L (25-35); TOTAL BILIRUBIN 0.16 mg/dL (0.20-1.00); TOTAL PROTEIN 7.2 g/dL (6.3-8.3)
[2019-10-15 12:36] VITALS: BP 118/72
--- NOTE | 2019-10-15 21:36 | PROGRESS NOTE ---
DATE: 10/15/2019 SUBJECTIVE: The patient has no major complaints. He is awake, talking, which is more than he has been doing being here. I think he is pretty close to his baseline. I do not think he has had any issues with his tube feeds. The plan will be to discharge today and see how he does. Chest x-ray still shows some platelike atelectasis. His sodium is at 141 and that is off of fluids. PLAN: The plan is to discharge to rehab, we just got to be very careful that he gets appropriate free water with his tube feeds and finish his course of antibiotics. We changed Omnicef for Levaquin because of his seizure history. Please see full dictation as described. cc: Markos Stanley MD
== END 2019-10-15 14:12 | DRG 871 ==
LOC: SUPCPDRO → ED 11:10 → 3N 14:08
PROVIDERS: ATTEND Internal Medicine

== ENCOUNTER 2019-10-29 14:28 | Inpatient (IN) ==
[2019-10-29] MEDS ORDERED: XOPENEX NEB INH ONE (14:44)
[2019-10-29] MEDS ORDERED: PULMICORT INH ONE (14:45)
[2019-10-29] MEDS ORDERED: NS NEB INH SCH (14:45)
--- NOTE | 2019-10-29 15:32 | Diag Imaging Result Doc PS360 ---
EXAM: CHEST-1 VIEW INDICATION: SOB TECHNIQUE: One view COMPARISON: 10/15/2019 FINDINGS: There is increased vasculature and there are central and basilar infiltrates bilaterally, more prominent on the left suggesting pulmonary venous congestion and pulmonary edema. There is also probably a component of atelectasis at the lung bases. There is no discrete pleural fluid collection or pneumothorax. The cardiac silhouette is stable. IMPRESSION: Bibasilar atelectasis and suggestion of pulmonary edema and pulmonary venous congestion. Electronically signed by Hossein Lu 10/29/2019 3:29 PM
[2019-10-29 15:47] LABS: ALLEN TEST YES; BE 4.5 mmoll (-3.0-3.0); BLOOD TYPE ARTERIAL; HCO3-(ACT) 28.4 mmoll (20.0-26.0); METHB 1.4 % (0.0-1.5); MODALITY CANNULA; O2(CT) 14.9 mL/dL (15.0-23.0); O2HB 96.1 % (95.0-99.0); PCO2(98.6) 38 mmHg (35-45); PO2(98.6) 103 mmHg (60-100); SAMPLE BLOOD; SAO2 99.4 % (95.0-100.0); THB 10.9 g/dL (11.5-17.4); pH(98.6) 7.48 (7.35-7.45)
[2019-10-29] MEDS ORDERED: MOTRIN LIQUID GT ONE (15:56)
[2019-10-29 16:36] LABS: BASO# 0.01 X1000 (0.0-0.2); BASO% 0.1 % (0.0-0.8); EOS# 0.02 X1000 (0.0-0.7); EOS% 0.1 % (0.0-10.0); HEMATOCRIT 32.5 % (42.0-52.0); HEMOGLOBIN 10.2 g/dL (14.0-18.0); IMM GRAN# 0.05 X1000 (0.0-0.04); IMM GRAN% 0.3 % (0.0-0.5); LYMPH# 0.47 X1000 (1.2-3.4); LYMPH% 2.7 % (20.5-51.1); MCH 25.4 PG (27-31); MCHC 31.4 g/dL (33-37); MCV 80.8 FL (81-99); MONO# 0.55 X1000 (0.11-0.59); MONO% 3.1 % (1.7-9.3); MPV 12.3 FL (7.4-10.4); NEUT# 16.55 X1000 (1.4-6.5); NEUT% 93.7 % (42.2-75.2); PLT 185 X1000 (130-400); RBC 4.02 XMIL (4.7-6.1); RDW 16.5 % (11.5-14.5); WBC 17.65 X1000 (4.8-10.8)
[2019-10-29 16:43] LABS: INR 0.98; PROTIME 13.1 Seconds (11.0-16.0)
[2019-10-29 16:44] LABS: PTT 21.3 Seconds (22.3-41.8)
[2019-10-29 16:52] LABS: AGAP 12; ALB/GLOB RATIO 0.7; ALBUMIN 3.3 g/dL (3.5-5.0); ALKALINE PHOSPHATASE 61 U/L (32-122); BUN 16 mg/dL (8-22); CHLORIDE 102 mmol/L (98-107); CK PROFILE 71 U/L (24-204); COSMO 279; CREATININE 0.8 mg/dL (0.7-1.2); ESTIMATED GFR > 60; GLUCOSE 102 mg/dL (70-104); GOT 33 U/L (10-34); GPT 16 U/L (10-44); MAGNESIUM 1.6 mg/dL (1.5-2.7); POTASSIUM 4.8 mmol/L (3.5-5.1); SODIUM 139 mmol/L (136-145); TCO2 25 mmol/L (25-35); TOTAL BILIRUBIN 0.53 mg/dL (0.20-1.00); TOTAL PROTEIN 8.3 g/dL (6.3-8.3)
[2019-10-29] MEDS ORDERED: MAXIPIME 1 GM in NS 50 ML IV ONE (17:29)
[2019-10-29] MEDS ORDERED: VANCOMYCIN 1 GM/NS 1 GM/250 ML IVPB IV ONE ×2 (17:29→20:43)
[2019-10-29] MEDS ORDERED: NS 2,000 ML IV ONE (17:53)
--- NOTE | 2019-10-29 17:59 | EKG Report ---
Test Performed on : 10/29/2019 5:18:05 PM Test Reason : CP Blood Pressure : / mmHG Vent. Rate : 110 BPM Atrial Rate : 110 BPM P-R Int : 158 ms QRS Dur : 072 ms QT Int : 346 ms P-R-T Axes : 035 -32 044 degrees QTc Int : 468 ms Sinus tachycardia. Left axis deviation Nonspecific T wave abnormality Abnormal ECG When compared with ECG of 10-OCT-2019 13:44, (Unconfirmed) Nonspecific T wave abnormality, worse in Anterior leads Unconfirmed Result
[2019-10-29] MEDS ORDERED: MOTRIN LIQUID ONE (18:07)
--- NOTE | 2019-10-29 18:51 | HISTORY AND PHYSICAL ---
PRIMARY CARE PROVIDER: The patient is followed by Dr. June Patino. HISTORY OF PRESENT ILLNESS: This is a 64-year-old black male who presents today to [facility]. He has had fever for the last couple of days and felt like he was coughing more. He is at [facility]. He seemed to have a little bit of increased work of breathing, so they brought him to the emergency room. PAST MEDICAL HISTORY: 1. Hypertension. 2. CVA. 3. Former alcohol use. 4. Seizure disorder. 5. Chronic hepatitis B. 6. Multiple myeloma. He has had multiple admissions for respiratory-type trouble. He has a PEG tube because of difficulty with swallowing. PAST SURGICAL HISTORY: PEG tube placement. SOCIAL HISTORY: Currently resides at [facility]. A former smoker. Currently a long history of alcohol use and abuse, but no longer. Has some suspected alcohol- related dementia. ALLERGIES: PENICILLIN AND SULFA. MEDICATIONS: Reviewed his list of medications. REVIEW OF SYSTEMS: Constitutional: He has not had any weight loss. He has had subjective fever and chills, and they measured fever in the half-way. No change in visual or hearing acuity. He has trouble with his speech since his CVA, and also dysphagia. Respiratory: Increased cough. Cardiovascular: No chest pain or tachy-palpitation. GI/: Has a PEG tube. Bowels have been moving okay, according to report. Musculoskeletal/Neurologic: No focal complaints. Endocrinologic/Hematologic: No significant history. PHYSICAL EXAM: Temperature is 104.5, pulse 89, respirations 20, blood pressure 119/73. Weight is 143 pounds. Height 5 feet 8 inches. HEENT: Pupils are equal and round. LUNGS: Clear. There are some scattered rhonchi in the lower bases. No wheezing. CARDIOVASCULAR: Regular rhythm and rate without murmur or S3. ABDOMEN: Soft. SKIN: Warm and dry. Lungs are clear. CARDIOVASCULAR: Regular rhythm rate without murmur or S3. ABDOMEN: Soft, nondistended. Skin is warm and dry. LABORATORY DATA: White count 17,650, hematocrit 32, platelet count 185,000. Sodium 139, potassium 4.8, chloride 102 BUN 16, creatinine 0.8, blood sugar 102, magnesium 1.6. AST is 33, ALT is 16. Pro time was 13.1. Blood gas: pH of 7.48, pCO2 of 38, pO2 of 103, O2 saturation 99%. Has bibasilar atelectasis suggestive of pulmonary edema or pulmonary venous congestion. I do not see any definite infiltrates. ASSESSMENT AND PLAN: 1. Suspicion for aspiration and possible aspiration pneumonitis. We will treat him for bronchopneumonia. He has had numerous admissions for this before. He is allergic to penicillin and sulfa drugs. I believe I will put him on Levaquin and vancomycin at this point. 2. Status post cerebrovascular accident with significant dysphagia. He has a percutaneous endoscopic gastrostomy tube, and he is getting tube feeding with that. 3. Multiple myeloma. 4. Dementia with alcohol-related dementia as well. 5. History of seizures. 6. History of chronic hepatitis B. 7. History of hypertension. 8. I will admit him to the medical floor. REVIEW OF ORDERS/MEDICATIONS AT HOME: We will continue the acetylcysteine, Mucomyst b.i.d., DuoNeb treatments every 4 hours while awake, vitamin C 500 mg p.o. b.i.d., and aspirin 81 mg a day, Valium 2.5 mg per PEG tube 3 times a day, donepezil 10 mg per PEG tube at bedtime, Nexium 40 mg per PEG tube daily, folic acid 1 mg every morning, . memantine 10 mg per PEG tube daily, metoprolol 12.5 mg per PEG tube daily, multivitamin 15 mL per PEG tube b.i.d., potassium chloride 10% liquid 20 mEq per PEG tube every morning, liquid protein fortifier, Seroquel 1 tablet per PEG tube b.i.d., quetiapine per PEG tube at bedtime, risperidone 1 mg per PEG tube b.i.d., tenofovir 1 tablet per PEG tube daily, thiamine 100 mg per PEG tube daily, and zinc sulfate 220 mg daily. cc: Hebert Layton MD [facility]. [facility] HOSPITALRashida
--- NOTE | 2019-10-29 18:58 | PROVIDER DOCUMENTATION ---
This chart was entered by Priti Sargent Scribe, acting as scribe for Sophia Warner MD. HPI-Fever - General Chief Complaint: Cough Stated Complaint: SOB Time Seen by Provider: 10/29/19 14:39 Source: patient, EMS Allergies/Adverse Reactions: Patient Allergies Allergy/AdvReac Type Severity Reaction Status Date / Time Penicillins Allergy Unknown Verified 10/29/19 17:18 Sulfa (Sulfonamide Allergy Unknown Verified 10/29/19 17:18 Antibiotics) Home Medications: Home Medication List Medication Instructions Recorded Confirmed Last Taken Type Thiamine [Vitamin B-1] 100 mg PEG QAM 09/21/15 10/29/19 10/29/19 History Folic Acid 1 mg PEG QAM 10/09/17 10/29/19 10/29/19 History Levetiracetam 500 mg PEG BID 10/09/17 10/29/19 10/29/19 History Potassium Chloride 10% Liquid 20 meq PEG QAM 10/09/17 10/29/19 10/29/19 History Memantine HCl 10 mg PEG DAILY 08/13/19 10/29/19 10/29/19 History Metoprolol Tartrate 12.5 mg PEG DAILY 08/13/19 10/29/19 10/29/19 History Quetiapine Fumarate 1 tab PEG QHS PRN 08/13/19 10/29/19 10/28/19 History Quetiapine [Seroquel] 1 tab PEG BID 08/13/19 10/29/19 10/29/19 History Risperidone [Risperidone Odt] 1 mg PEG BID 08/13/19 10/29/19 10/29/19 History Tenofovir Disoproxil Fumarate 1 tab PEG DAILY 08/13/19 10/29/19 10/28/19 History Acetaminophen 650 mg PEG Q4H PRN PRN 08/17/19 10/29/19 10/29/19 History Aspirin 81 mg PEG DAILY 08/17/19 10/29/19 10/29/19 History Esomeprazole [Nexium Packet] 40 mg PEG DAILY 08/17/19 10/29/19 10/29/19 History Menthol/Zinc Oxide Ointment 1 applicatn TOP PRN PRN 08/17/19 10/29/19 Unknown History [Calmoseptine Ointment] Acetylcysteine 20% [Mucomyst 20%] 3 ml INH RTBID vial 09/02/19 10/29/19 10/29/19 Rx Magnesium Hydroxide [Milk of 30 ml PEG MoWeFr udc 09/02/19 10/29/19 10/28/19 Rx Magnesia] Acetaminophen [Mapap Arthritis 650 mg PEG BID 09/07/19 10/29/19 10/29/19 History Pain] Ascorbate Calcium [Vitamin C] 500 mg PO BID 09/07/19 10/29/19 10/29/19 History Chlorhexidine Gluconate [Peridex] 30 ml PO BID 09/07/19 10/29/19 10/29/19 History Diazepam [Valium] 2.5 mg PEG 0500,1300,2000 09/07/19 10/29/19 10/29/19 History Donepezil HCl 10 mg PEG HS 09/07/19 10/29/19 10/28/19 History Multivit-Min/Ferrous Gluconate 15 ml PEG BID 09/07/19 10/29/19 10/29/19 History [Centrum Multivit-Mineral Liq] Protein Hydrolysate,Milk [Liquid 30 ml PO BID 09/07/19 10/29/19 10/29/19 History Protein Fortifier] Zinc Sulfate 220 mg PO DAILY 09/07/19 10/29/19 10/29/19 History Balsam [place] Oil [Venelex 30 gm TOPICAL TID 10/10/19 10/29/19 10/29/19 History Ointment] Clotrimazole/Betamethasone Dip 1 applic TOP BID 10/10/19 10/29/19 10/29/19 History [Clotrimazole-Betamethasone Crm] Petrolatum,White [Vaseline] 1 dose TOP DAILY 10/10/19 10/29/19 10/29/19 History Albuterol 2.5MG/Ipratrop 0.5MG 1 dose INH Q6H 10/29/19 10/29/19 10/29/19 History [Duoneb (A & A)] - History of Present Illness-Fever Nature of Presenting Problem: Patient is a 64 y/o male presenting to the ED today c/o cough and fever. Patient provides limited information so most information comes from EMS. Patient was brought in by EMS from [facility] after they report he was altered and running a temperature of 102.1. EMS states patient was given Valium and Tylenol prior to their arrival. Patient is able to follow commands and responds to some questions. Patient is A&Ox2 and c/o cough. Patient has a PEG tube in place. Denies all other signs/symptoms. 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 denies: shortness of breath Gastrointestinal: denies: abdominal pain, diarrhea, nausea, vomiting Genitourinary: reports: no symptoms reported Musculoskeletal: reports: no symptoms reported Integumentary: reports: no symptoms reported Neurological: reports: no symptoms reported Psychiatric: reports: no symptoms reported Endocrine: reports: no symptoms reported Hematologic/Lymphatic: reports: no symptoms reported Allergic/Immunologic: reports: no symptoms reported All Other Systems: Reviewed and Negative Past History - Adult - PAST MEDICAL HISTORY-ADULT Review of Records: reports: Old Records Reviewed, Nursing Assessment Review, Medications Reviewed, Social history reviewed & non-contributory. Major Childhood Illnesses: reports: denies history Cardiovascular: reports: HTN Respiratory: reports: pneumonia Gastrointestinal: reports: denies history, liver disease (chronic hep B) Obstetrical/Gynecological: reports: denies history Genitourinary: reports: denies history Musculoskeletal: reports: denies history Neurological: reports: stroke deficits, dementia, Seizures/Epilepsy Psychiatric: reports: anxiety Endocrine/Immune: reports: denies history Other Conditions: reports: denies history Additional History: Alcoholism; Beb ridden for the past two years - PRIOR SURGERIES/PROCEDURES Surgical/Procedure History: reports: other (peg tube placement) - PRIOR HOSPITALIZATIONS Prior Hospitalizations: reports: for similar symptoms - IMMUNIZATION STATUS Childhood Immunizations: See Nurse Assessment Flu Vaccine: See Nurse Assessment - FAMILY HISTORY Family History: reviewed, not pertinent Physical Exam-General - PHYSICAL EXAM-ADULT Initial Vital Signs Reviewed: Yes - CONSTITUTIONAL General Appearance: no apparent distress, slow to respond - EYES Eyes: PERRL/EOMI, pink conjunctivae - HEAD, EARS, NOSE, MOUTH & THROAT HENMT: normocephalic/atraumatic, normal ENT inspection, other (dry mucous membranes) - NECK Neck: full range of motion, normal inspection - RESPIRATORY Respiratory: no respiratory distress, no accessory muscle use, rhonchi (scattered) - CARDIOVASCULAR Cardiovascular: regular rate, rhythm, no edema - GASTROINTESTINAL (ABDOMEN) Abdominal Exam: non tender, soft, other (PEG tube in place with no drainage) - LYMPHATIC Lymphatic: no adenopathy - MUSCULOSKELETAL Back Exam: normal inspection Extremity: normal range of motion, normal inspection - SKIN Integumentary: normal color, normal turgor, warm/dry - NEUROLOGIC Neurologic: grossly normal - PSYCHIATRIC Psych/Mental Status: other (oriented to self and place) Progress - PLAN OF CARE/RESULTS Progress/Plan/Lab Results: Orders Category Date Time Status Admit - [facility] Routine AdmDCTranf 10/29/19 20:43 Active Activity - Up with Assistance ORDERED Care 10/29/19 20:43 Active Apply Mechanical Device [QM] ORDERED Care 10/29/19 20:43 Active Cardiac Monitoring DIRECTED Care 10/29/19 14:43 Completed DVT/PE Risk Assess/Protocol [QM] ORDERED Care 10/29/19 20:43 Active IV Insertion ORDERED Care 10/29/19 14:43 Completed Intake and Output-Strict ORDERED Care 10/29/19 20:43 Active Notify MD of + Sepsis Screen NOW Care 10/29/19 14:43 Completed Notify Physician As Ordered Care 10/29/19 14:43 Completed Nursing- Assist w/ IS as order ORDERED Care 10/29/19 20:43 Active Nursing- Obtain EKG ONCE Care 10/29/19 14:44 Completed Vital Signs Order Q 4-HR ASSESS Care 10/29/19 20:43 Active Z-Document. for Tele Applied ORDERED Care 10/29/19 20:43 Completed NPO Diet 10/29/19 20:44 Active CHEST-1 VIEW [RAD] Stat Exams 10/29/19 14:43 Completed CHEST-PORTABLE [RAD] Routine Exams 10/30/19 06:00 Completed ABG [RESP] Routine Lab 10/29/19 15:30 Completed BLOOD CULTURE [BLDCUL] Stat Lab 10/29/19 16:24 Results CBC WITH DIFF [HEME] Routine Lab 10/30/19 05:50 Completed CBC WITH DIFF [HEME] Stat Lab 10/29/19 16:14 Completed CK PROFILE [SP CHEM] Stat Lab 10/29/19 16:14 Completed COMPREHENSIVE METABOLIC PANEL [CHEM] Routine Lab 10/30/19 05:50 Completed COMPREHENSIVE METABOLIC PANEL [CHEM] Stat Lab 10/29/19 16:14 Completed Flu Swab [INFLUENZA SCREEN A/B] Stat Lab 10/29/19 16:22 Completed LACTATE, PLASMA [CHEM] Lab 10/29/19 18:22 Completed LACTATE, PLASMA [CHEM] Lab 10/29/19 21:42 Completed LACTATE, PLASMA [CHEM] Q3H Lab 10/29/19 16:14 Completed MAGNESIUM [CHEM] Routine Lab 10/30/19 05:50 Completed MAGNESIUM [CHEM] Stat Lab 10/29/19 16:14 Completed PRO B-NATRIURETIC PEPTIDE Stat Lab 10/29/19 16:14 Completed PROTIME WITH INR [COAG] Stat Lab 10/29/19 16:14 Completed PTT [COAG] Stat Lab 10/29/19 16:14 Completed TROPONIN T HIGH SENSITIVITY Stat Lab 10/29/19 16:14 Completed TSH Routine Lab 10/30/19 05:50 Completed URINALYSIS W/POSS RFLX CULT [URINALYSIS] Stat Lab 10/29/19 19:41 Completed URINE MANUAL MICROSCOPIC [URINALYSIS] Stat Lab 10/29/19 19:41 Completed 0.9% Sodium Chloride Inj [Ns] 1,000 ml Med 10/29/19 20:43 Discontinued IV 85 mls/hr 0.9% Sodium Chloride Inj [Ns] 2,000 ml Med 10/29/19 17:53 Discontinued IV 999 mls/hr Acetaminophen E.r. [Tylenol Arthritis] Med 10/29/19 21:00 Discontinued 650 mg MISC BID@0800,1900 Acetaminophen [Tylenol] Med 10/29/19 20:43 Active 650 mg PEG Q4H PRN PRN Acetylcysteine 20% [Mucomyst 20%] Med 10/29/19 20:43 Active 3 ml INH RTBID Albuterol 2.5MG/Ipratrop 0.5MG [Duoneb (A & A)] Med 10/29/19 22:00 Active 3 ml INH RTQ6H Ascorbic Acid [Vitamin C] Med 10/29/19 21:00 Active 500 mg PO BID@0800,1600 Aspirin Med 10/30/19 09:00 Active 81 mg PEG DAILY Budesonide [Pulmicort] Med 10/29/19 14:45 Discontinued 0.5 mg INH NOW ONE CefEPIME [Maxipime] 1 gm Med 10/29/19 17:29 Discontinued 0.9% Sodium Chloride Inj [Ns] 50 ml IV NOW Chlorhexidine Gluconate [Peridex] Med 10/29/19 21:00 Active 15 ml MT BID@0900,1700 Clindamycin 600 mg/D5w Med 10/29/19 22:00 Discontinued 600 mg in 50 ml IV Q8H Clotrimazole/Bmethasone Cream [Lotrisone Cream] Med 10/29/19 21:00 Active 0 gm TOP BID Diazepam [Valium] Med 10/29/19 20:43 Active 2.5 mg PEG TID@0500,1300,2000 Donepezil [Aricept] Med 10/29/19 21:00 Active 10 mg PEG HS Esomeprazole [Nexium Packet] Med 10/30/19 09:00 Active 40 mg PEG DAILY Folic Acid Med 10/30/19 09:00 Active 1 mg PEG QAM Ibuprofen [Motrin Liquid] Med 10/29/19 18:07 Discontinued 300 mg .ROUTE .STK-MED ONE Ibuprofen [Motrin Liquid] Med 10/29/19 15:56 Discontinued 600 mg GT NOW ONE Levalbuterol Neb [Xopenex Neb] Med 10/29/19 14:44 Discontinued 1.25 mg INH NOW ONE Levetiracetam [Keppra] Med 10/29/19 21:00 Active 500 mg PEG BID@0800,2000 Magnesium Hydroxide [Milk of Magnesia] Med 10/31/19 09:00 Active 30 ml PEG MoWeFr@0900 Memantine [Namenda] Med 10/30/19 09:00 Active 10 mg PEG DAILY Menthol/Zinc Oxide Ointment [Calmoseptine Ointment] Med 10/29/19 20:43 Active 0 gm TOP PRN PRN Metoprolol [Lopressor] Med 10/30/19 09:00 Discontinued 12.5 mg PEG DAILY Multivitamins,Therapeutic Liq. [Theragran Liquid] Med 10/29/19 21:00 Active 15 ml PEG BID Patient's Own Med Med 10/29/19 21:00 Active 0 each PO BID Petrolatum,White [Vaseline Packet] Med 10/30/19 09:00 Active 1 each TOP DAILY Potassium Chloride 10% Liquid Med 10/30/19 09:00 Discontinued 20 meq PEG QAM Quetiapine [Seroquel] Med 10/29/19 20:43 Discontinued 100 mg PEG HS PRN PRN Quetiapine [Seroquel] Med 10/29/19 21:45 Active 50 mg PEG BID@0800,1600 Risperidone [Risperdal M-Tab] Med 10/29/19 21:00 Active 1 mg PEG BID@0800,1600 Sodium Chloride 0.9% Neb [Ns Neb] Med 10/29/19 14:45 Discontinued 5 ml INH DIRECTED Tenofovir Disoproxil Fumarate Med 10/30/19 16:00 Active 0 tab PEG DAILY@1600 Thiamine [Vitamin B-1] Med 10/30/19 09:00 Active 100 mg PEG QAM Vancomycin 1 gm/Ns Med 10/29/19 17:29 Discontinued 1 gm in 250 ml IV NOW Zinc Sulfate Med 10/30/19 08:00 Active 220 mg PO BID@0800,1600 Aerosol Treatments Routine Oth 10/29/19 14:44 Completed Aerosol Treatments Routine Oth 10/29/19 20:43 Completed Aerosol Treatments Stat Oth 10/29/19 14:44 Completed Aerosol Treatments Stat Oth 10/29/19 20:43 Completed Incentive Spirometer Routine Oth 10/29/19 20:43 Completed Oxygen Device Routine Oth 10/29/19 20:43 Completed Oxygen Device Stat Oth 10/29/19 14:43 Completed Telemetry [OM.EQ] Routine Oth 10/29/19 20:43 Active EKG [EKG] Stat Ther 10/29/19 14:44 Draft EKG [EKG] Stat Ther 10/29/19 20:43 Completed Physical Therapy Eval/Treatment [OM.PT] Routine Ther 10/29/19 20:43 Active Transfer/Admit Order [TRANSFER] Routine Transfer 10/29/19 18:16 Completed Result Diagrams: 11/03/19 07:44 11/03/19 07:44 - REASSESSMENT Reassessment #1 Status: other (sepsis 2/2 to believed aspiration pneumonia as pt with cough and fever and has G-tube. labs showing elevated WBC at 17, elevated lactate at 3.0, and pt with tachycarida and rhonchi on exam.) - EKG 1 Time of EKG reading by physician:: 17:21 EKG Read and Signed by:: Ariel [place] EKG Interpretation (*Must complete 3 of following elements*): Abnormal Rate: 110 Rhythm: Sinus tachycardia [place]: left QRS: other (early transition, high voltage) Comments: no STEMI - XRAY 1 XRAY Study: Chest Impression: See EMR Report (EXAM: CHEST-1 VIEW INDICATION: SOB TECHNIQUE: One view COMPARISON: 10/15/2019 FINDINGS: There is increased vasculature and there are central and basilar infiltrates bilaterally, more prominent on the left suggesting pulmonary venous congestion and pulmonary edema. There is also probably a component of atelectasis at the lung bases. There is no discrete pleural fluid collection or pneumothorax. The cardiac silhouette is stable. IMPRESSION: Bibasilar atelectasis and suggestion of pulmonary edema and pulmonary venous congestion. Electronically signed by Hossein Lu 10/29/2019 3:29 PM 10/29/19 1529 Interpreting Physician: Hossein Lu MD Dictated Date/Time: 10/29/19 1528 cc: Sophia Warner MD; June Patino MD) Departure - Departure Date of Disposition Decision: 10/29/19 Time of Disposition Decision: 19:18 DIAGNOSIS: Pneumonia Disposition: ADMITTED INPATIENT 09 Certified Medical Emergency: Emergent Condition: Stable - Critical Care Note This patient required my direct & personal management of CC.: No Attestation - Physician/ PRISCILLA Attestation Patient care was provided by Advanced Practice Provider:: No The physician spent face to face time with patient:: Yes Advanced Practice Provider documentation review:: Supervising physician onsite and consulted in the evaluation and care of this patient. The physician did have a face to face encounter with the patient. This chart was documented by the indicated scribe, (Priti Sargent Scribe) and accurately reflects the services I performed and decisions made by me, Sophia Warner MD, as attested by the provider's signature.
[2019-10-29 19:51] LABS: URINE SOURCE CATH
[2019-10-29 19:54] LABS: BILIRUBIN URINE NEGATIVE (NEGATIVE); BLOOD URINE NEGATIVE (NEGATIVE); COLOR YELLOW; GLUCOSE URINE NEGATIVE (NEGATIVE); KETONE URINE NEGATIVE (NEGATIVE); LEUKOCYTES URINE NEGATIVE (NEGATIVE); NITRITE URINE NEGATIVE (NEGATIVE); PROTEIN URINE TRACE mg/dL (NEGATIVE); SP GRAVITY URINE 1.018; TURBIDITY URINE CLEAR (CLEAR); UROBILINOGEN URINE NORMAL (NORMAL)
[2019-10-29 20:05] LABS: UR EPITHELIAL CELLS <10 /HPF (<10); URINE BACTERIA NEGATIVE /HPF; URINE RBC <10 /HPF (<10); URINE WBC <10 /HPF (<10)
[2019-10-29] MEDS ORDERED: TYLENOL PEG PRN (20:43)
[2019-10-29] MEDS ORDERED: VANCOMYCIN IV PER PHARMACY MISC SCH (20:43)
[2019-10-29] MEDS ORDERED: CALMOSEPTINE OINTMENT TOP PRN (20:43)
[2019-10-29] MEDS ORDERED: SEROQUEL PEG PRN (20:43)
[2019-10-29] MEDS: PATIENT'S OWN MED PO SCH (21:00)
[2019-10-29] MEDS: THERAGRAN LIQUID PEG SCH (21:00)
[2019-10-29] MEDS: DUONEB (A & A) INH SCH (22:00)
[2019-10-30] MEDS: MUCOMYST 20% INH SCH ×3 (00:01→22:49)
[2019-10-30] MEDS: ARICEPT PEG SCH ×2 (00:35→21:43)
[2019-10-30] MEDS: CLINDAMYCIN 600 MG/D5W 600 MG/50 ML IVPB IV SCH ×3 (00:35→08:34)
[2019-10-30] MEDS: NS 1,000 ML IV SCH ×2 (00:37→12:39)
[2019-10-30] MEDS: LOTRISONE CREAM TOP SCH ×3 (00:37→21:44)
[2019-10-30] MEDS: KEPPRA PEG SCH ×3 (00:37→21:43)
[2019-10-30] MEDS: SEROQUEL PEG SCH ×3 (00:38→16:35)
[2019-10-30] MEDS: RISPERDAL M-TAB PEG SCH ×3 (00:39→17:34)
[2019-10-30] MEDS: TYLENOL ARTHRITIS MISC SCH ×2 (00:39→11:19)
[2019-10-30] MEDS: VALIUM PEG SCH ×4 (00:40→21:43)
[2019-10-30] MEDS: VITAMIN C PO SCH ×3 (00:40→16:35)
[2019-10-30] MEDS: PERIDEX MT SCH ×3 (03:05→16:35)
[2019-10-30] MEDS: DUONEB (A & A) INH SCH ×4 (03:18→22:48)
[2019-10-30] MEDS ORDERED: VANCOMYCIN 750 MG in NS 250 ML IV ONE (03:30)
--- NOTE | 2019-10-30 05:55 | EKG Report ---
Test Performed on : 10/30/2019 00:35:56 AM Test Reason : chest pain Blood Pressure : / mmHG Vent. Rate : 084 BPM Atrial Rate : 084 BPM P-R Int : 138 ms QRS Dur : 070 ms QT Int : 390 ms P-R-T Axes : 036 -19 034 degrees QTc Int : 460 ms Normal sinus rhythm. Nonspecific T wave abnormality Abnormal ECG When compared with ECG of 29-OCT-2019 17:18, (Unconfirmed) No significant change was found Confirmed by Serafin ARMAS, [place] Leon ([id number]) on 10/30/2019 9:25:24 AM
[2019-10-30 06:07] LABS: BASO# 0.02 X1000 (0.0-0.2); BASO% 0.1 % (0.0-0.8); EOS# 0.01 X1000 (0.0-0.7); HEMATOCRIT 30.2 % (42.0-52.0); HEMOGLOBIN 9.3 g/dL (14.0-18.0); IMM GRAN# 0.06 X1000 (0.0-0.04); IMM GRAN% 0.3 % (0.0-0.5); LYMPH# 1.83 X1000 (1.2-3.4); LYMPH% 8.4 % (20.5-51.1); MCH 25.3 PG (27-31); MCHC 30.8 g/dL (33-37); MCV 82.3 FL (81-99); MONO# 0.94 X1000 (0.11-0.59); MONO% 4.3 % (1.7-9.3); MPV 11.4 FL (7.4-10.4); NEUT# 18.86 X1000 (1.4-6.5); NEUT% 86.9 % (42.2-75.2); PLT 152 X1000 (130-400); RBC 3.67 XMIL (4.7-6.1); WBC 21.72 X1000 (4.8-10.8)
[2019-10-30 06:32] LABS: AGAP 9; ALB/GLOB RATIO 0.5; ALBUMIN 2.6 g/dL (3.5-5.0); ALKALINE PHOSPHATASE 51 U/L (32-122); BUN 15 mg/dL (8-22); CALCIUM 8.4 mg/dL (8.8-10.2); CHLORIDE 109 mmol/L (98-107); COSMO 284; CREATININE 0.8 mg/dL (0.7-1.2); ESTIMATED GFR > 60; GLUCOSE 100 mg/dL (70-104); GOT 21 U/L (10-34); GPT 14 U/L (10-44); MAGNESIUM 1.7 mg/dL (1.5-2.7); POTASSIUM 3.8 mmol/L (3.5-5.1); SODIUM 142 mmol/L (136-145); TCO2 24 mmol/L (25-35); TOTAL BILIRUBIN 0.69 mg/dL (0.20-1.00); TOTAL PROTEIN 7.4 g/dL (6.3-8.3)
[2019-10-30 08:01] LABS: LYMPHS 10 % (21-51); MONO 5 % (1-9); SEGS 85 % (42-75)
--- NOTE | 2019-10-30 08:23 | Diag Imaging Result Doc PS360 ---
EXAM: CHEST-PORTABLE INDICATION: pneumonia TECHNIQUE: One view COMPARISON: 10/29/2019 FINDINGS: There is stable suboptimal inspiration. Bibasilar atelectasis and/or infiltrate is approximately stable. No new consolidation is identified. Cardiac silhouette is stable. IMPRESSION: Stable chest. Electronically signed by Hossein Lu 10/30/2019 8:21 AM
[2019-10-30] MEDS ORDERED: POTASSIUM CHLORIDE 10% LIQUID PEG SCH (09:00)
[2019-10-30] MEDS: LOPRESSOR PEG SCH ×2 (09:00→09:29)
[2019-10-30] MEDS: ASPIRIN PEG SCH (09:29)
[2019-10-30] MEDS: NAMENDA PEG SCH (11:16)
[2019-10-30] MEDS: FOLIC ACID PEG SCH (11:17)
[2019-10-30] MEDS: THERAGRAN LIQUID PEG SCH ×2 (11:18→21:45)
[2019-10-30] MEDS: NEXIUM PACKET PEG SCH (11:19)
[2019-10-30] MEDS: VITAMIN B-1 PEG SCH (11:19)
[2019-10-30] MEDS: ZINC SULFATE PO SCH ×2 (13:15→16:35)
[2019-10-30] MEDS: VASELINE TOP SCH (13:15)
--- NOTE | 2019-10-30 15:02 | PROGRESS NOTE ---
DATE: 10/30/2019 INTERVAL HISTORY: No acute events overnight. He was admitted for sepsis due to aspiration pneumonia. I am seeing him in the emergency room. The patient's nurse is currently at bedside. Mr. Delarosa does not appear to be in any acute distress. However, he appears to have significant secretions in the mouth, which require frequent suctioning. He denies any chest pain or shortness of breath. He complains of cough. OBJECTIVE: Vital Signs: Temperature of 98 degrees, pulse 86, respiratory rate 22, blood pressure 113/71, he is saturating 99% on 2 L nasal cannula. HEENT: Oral cavity is moist air entry. Lungs: He has poor respiratory effort. He has crackles in both infrascapular regions. Cardiovascular: S1, S2 normal. Not tachycardic. No murmur, rub, or gallop. Abdomen: Soft. He has a PEG tube site. The site appears noninflamed. Nontender abdomen. Active bowel sounds. Extremities: He does not have any lower extremity edema. He is able to raise both upper and lower extremities above ground level. Neurologic: His pupils are bilaterally equal and reacting to light. He is able to follow simple commands. He could tell me his date and his own name. He could not tell me the year. He had a bowel movement. LABORATORY DATA: Suggestive of leukocytosis with 21,000 WBC, hemoglobin of 9.3, platelets 152,000. His electrolytes are suggestive of potassium of 3.8, BUN 15, creatinine 0.8. MICROBIOLOGY: Blood cultures are in lab. He has not been able to spit out any sputum. IMAGING: Chest x-ray suggests bilateral lower lobe aspiration pneumonia. ASSESSMENT AND PLAN: 1. Sepsis due to bilateral lower lobe aspiration pneumonia. Continue intravenous vancomycin, intravenous cefepime, and intravenous metronidazole. His clindamycin has been discontinued. Follow up final blood culture results. 2. Acute hypoxic respiratory failure due to bilateral lower lobe pneumonia. Continue oxygenation. He is on 2 liters, and saturating well at the moment. 3. 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 Continue his home medications of diazepam, donepezil, levetiracetam, memantine, quetiapine, risperidone. He also had prior history of seizures. 4. Others. Continue his home aspirin, omeprazole, and multivitamins. Continue his home tenofovir for history of chronic hepatitis B. 5. Disposition. Will continue to monitor the patient on medical floor with telemetry. Plan of care discussed with the patient. I called the patient's mother and informed her about the patient's clinical condition, risk of aspiration, and answered all of her questions. It appears that his mother had some hearing impairment on the phone. cc: Marvin Briggs MD
[2019-10-30] MEDS: PATIENT'S OWN MED PO SCH ×2 (16:06→21:44)
[2019-10-30] MEDS: FLAGYL 500 MG/NS 500 MG/100 ML IVPB IV SCH ×2 (16:32→22:56)
[2019-10-30] MEDS: LR 1,000 ML IV SCH (16:38)
[2019-10-30] MEDS: MAXIPIME 2 GM/NS 2 GM/100 ML IVPB IV SCH (17:34)
[2019-10-30] MEDS: TENOFOVIR DISOPROXIL FUMARATE PEG SCH (17:35)
[2019-10-30] MEDS: VANCOMYCIN 1,300 MG in NS 250 ML IV SCH (19:20)
[2019-10-31] MEDS: LR 1,000 ML IV SCH (00:24)
[2019-10-31] MEDS: MAXIPIME 2 GM/NS 2 GM/100 ML IVPB IV SCH ×2 (03:24→16:29)
[2019-10-31] MEDS: DUONEB (A & A) INH SCH ×4 (03:45→23:12)
[2019-10-31] MEDS: FLAGYL 500 MG/NS 500 MG/100 ML IVPB IV SCH ×4 (04:05→23:07)
[2019-10-31] MEDS: VALIUM PEG SCH ×3 (04:27→20:39)
[2019-10-31 09:13] LABS: AGAP 9; ALB/GLOB RATIO 0.6; ALBUMIN 2.7 g/dL (3.5-5.0); ALKALINE PHOSPHATASE 58 U/L (32-122); BUN 8 mg/dL (8-22); CALCIUM 8.4 mg/dL (8.8-10.2); CHLORIDE 108 mmol/L (98-107); COSMO 282; CREATININE 0.6 mg/dL (0.7-1.2); ESTIMATED GFR > 60; GLUCOSE 109 mg/dL (70-104); GOT 22 U/L (10-34); GPT 14 U/L (10-44); MAGNESIUM 1.6 mg/dL (1.5-2.7); PHOSPHORUS 2.4 mg/dL (2.7-4.5); POTASSIUM 3.6 mmol/L (3.5-5.1); SODIUM 142 mmol/L (136-145); TCO2 25 mmol/L (25-35); TOTAL BILIRUBIN 0.42 mg/dL (0.20-1.00); TOTAL PROTEIN 7.5 g/dL (6.3-8.3)
[2019-10-31 09:45] LABS: PREALBUMIN 16.1 mg/dL (20-40)
[2019-10-31] MEDS: MILK OF MAGNESIA PEG SCH (09:52)
[2019-10-31] MEDS: VITAMIN B-1 PEG SCH (09:52)
[2019-10-31] MEDS: PERIDEX MT SCH ×2 (09:52→16:26)
[2019-10-31] MEDS: ASPIRIN PEG SCH (09:52)
[2019-10-31] MEDS: KEPPRA PEG SCH ×2 (09:52→20:39)
[2019-10-31] MEDS: VITAMIN C PO SCH ×2 (09:52→16:27)
[2019-10-31] MEDS: FOLIC ACID PEG SCH (09:52)
[2019-10-31] MEDS: NAMENDA PEG SCH (09:53)
[2019-10-31] MEDS: ZINC SULFATE PO SCH ×2 (09:53→16:27)
[2019-10-31] MEDS: SEROQUEL PEG SCH ×2 (09:53→16:27)
[2019-10-31] MEDS: NEXIUM PACKET PEG SCH (09:53)
[2019-10-31] MEDS: LOTRISONE CREAM TOP SCH ×2 (10:21→20:40)
[2019-10-31] MEDS: RISPERDAL M-TAB PEG SCH ×2 (10:22→16:27)
[2019-10-31] MEDS: THERAGRAN LIQUID PEG SCH ×2 (10:22→20:39)
[2019-10-31] MEDS: VASELINE TOP SCH (10:22)
[2019-10-31] MEDS: PATIENT'S OWN MED PO SCH (10:42)
[2019-10-31] MEDS: MUCOMYST 20% INH SCH ×2 (10:50→19:54)
[2019-10-31] MEDS: TENOFOVIR DISOPROXIL FUMARATE PEG SCH (16:26)
--- NOTE | 2019-10-31 17:51 | PROGRESS NOTE ---
DATE: 10/31/2019 INTERVAL HISTORY: No acute events overnight. SUBJECTIVE: Mr. Delarosa denies any complaints. Mr. Delarosa denies any chest pain, shortness of breath. He is occasionally coughing. He is saturating well on nasal cannula. He has a good cough as well. OBJECTIVE: Vital signs: Temperature of 98.6 degrees, pulse 80 respiratory 22, blood pressure 147/76, saturating 99% on 2 L nasal cannula. HEENT: Oral cavity is full of saliva. Lungs: Air entry bilaterally equal. Mild crackles in infrascapular region, which appears to be improving. No wheezes or rhonchi. Cardiovascular: S1, S2 normal. Not tachycardic. No murmur or gallop. Abdomen: Soft. He has a PEG tube with PEG tube site, noninflamed, nontender abdomen. Active bowel sounds. Extremities: He does not have lower extremity edema. He is able to raise both upper and lower extremities above ground level. He is able to flex and extend at the wrist, elbow, hip, ankle and knee joints. Neurologic: His pupils are bilaterally equal reacting to light. He is able to follow simple commands. He could tell me his date and his own name. He could not tell me the year, though. Input and output suggest 1 soft bowel movement. LABORATORY DATA: Suggestive of no CBC today. He did have a slight drop in his hemoglobin. Will follow up with CBC tomorrow. BUN is 8, creatinine 0.6. MICROBIOLOGY: No positive data so far. IMAGING: No new imaging. ASSESSMENT AND PLAN: 1. Sepsis and acute hypoxic respiratory failure due to bilateral lower lobe aspiration pneumonia. Continue intravenous vancomycin, cefepime and metronidazole. Continue oxygenation to maintain saturation more than 94%. 2. History of alcohol abuse and likely alcohol related dementia, history of left basal ganglia cerebrovascular accident, status post dysphagia and percutaneous endoscopic gastrostomy tube. Continue home medications of diazepam, donepezil, levetiracetam, memantine, quetiapine, risperidone for behavioral disturbance as well as dementia and history of seizures. 3. Others. Continue home aspirin, omeprazole, multivitamins. Continue home tenofovir for history of chronic hepatitis B. DISPOSITION: I will continue to monitor patient on medical floor. Plan of care discussed with the patient. I will repeat x-ray of his chest tomorrow to assess better understanding of his pneumonia. Based on that, I would consider changing his antibiotics to oral and would anticipate discharge in next 48 hours. Yesterday, I had a detailed discussion about plan of care with the patient's mother on phone; however, she appeared to have hearing impairment. cc: Marvin Briggs MD
[2019-10-31] MEDS: VANCOMYCIN 1,300 MG in NS 250 ML IV SCH (18:29)
[2019-10-31] MEDS: ARICEPT PEG SCH (20:39)
[2019-11-01] MEDS: DUONEB (A & A) INH SCH ×4 (03:49→23:12)
[2019-11-01] MEDS: FLAGYL 500 MG/NS 500 MG/100 ML IVPB IV SCH ×3 (05:49→16:59)
[2019-11-01] MEDS: PATIENT'S OWN MED PO SCH ×3 (05:50→22:00)
[2019-11-01] MEDS: VALIUM PEG SCH ×3 (05:52→21:59)
[2019-11-01] MEDS: MAXIPIME 2 GM/NS 2 GM/100 ML IVPB IV SCH ×2 (05:54→18:01)
[2019-11-01 08:23] LABS: AGAP 8; ALB/GLOB RATIO 0.5; ALBUMIN 2.4 g/dL (3.5-5.0); ALKALINE PHOSPHATASE 53 U/L (32-122); BUN 7 mg/dL (8-22); CALCIUM 8.1 mg/dL (8.8-10.2); CHLORIDE 107 mmol/L (98-107); COSMO 280; CREATININE 0.6 mg/dL (0.7-1.2); ESTIMATED GFR > 60; GLUCOSE 105 mg/dL (70-104); GOT 19 U/L (10-34); GPT 13 U/L (10-44); POTASSIUM 3.8 mmol/L (3.5-5.1); SODIUM 141 mmol/L (136-145); TCO2 26 mmol/L (25-35); TOTAL BILIRUBIN 0.26 mg/dL (0.20-1.00); TOTAL PROTEIN 6.9 g/dL (6.3-8.3)
[2019-11-01 08:30] LABS: BASO# 0.01 X1000 (0.0-0.2); BASO% 0.1 % (0.0-0.8); EOS# 0.24 X1000 (0.0-0.7); HEMATOCRIT 27.2 % (42.0-52.0); HEMOGLOBIN 8.2 g/dL (14.0-18.0); IMM GRAN# 0.02 X1000 (0.0-0.04); IMM GRAN% 0.2 % (0.0-0.5); LYMPH# 1.07 X1000 (1.2-3.4); LYMPH% 13.2 % (20.5-51.1); MCH 24.8 PG (27-31); MCHC 30.1 g/dL (33-37); MCV 82.4 FL (81-99); MONO# 0.95 X1000 (0.11-0.59); MONO% 11.8 % (1.7-9.3); MPV 12.2 FL (7.4-10.4); NEUT# 5.79 X1000 (1.4-6.5); NEUT% 71.7 % (42.2-75.2); PLT 141 X1000 (130-400); RDW 16.7 % (11.5-14.5); WBC 8.08 X1000 (4.8-10.8)
--- NOTE | 2019-11-01 09:17 | Diag Imaging Result Doc PS360 ---
EXAM: CHEST-2 VIEWS INDICATION: Follow up pneumonia TECHNIQUE: 2 views COMPARISON: 10/30/2019 FINDINGS: There has been development of a small right basilar pleural effusion. There is right basilar atelectasis similar to the previous study. Left basilar atelectasis appears to have improved slightly. No new consolidation is identified, otherwise. Cardiac silhouette is stable. IMPRESSION: Development of a small right pleural effusion as described. Improvement of mild left basilar atelectasis. Electronically signed by Hossein Lu 11/01/2019 9:15 AM
[2019-11-01 09:18] LABS: MAGNESIUM 1.6 mg/dL (1.5-2.7); PHOSPHORUS 2.7 mg/dL (2.7-4.5)
[2019-11-01] MEDS: MUCOMYST 20% INH SCH ×2 (09:31→23:12)
[2019-11-01] MEDS: VASELINE TOP SCH (10:09)
[2019-11-01] MEDS: NEXIUM PACKET PEG SCH (10:09)
[2019-11-01] MEDS: ASPIRIN PEG SCH (10:09)
[2019-11-01] MEDS: SEROQUEL PEG SCH ×2 (10:10→17:00)
[2019-11-01] MEDS: NAMENDA PEG SCH (10:10)
[2019-11-01] MEDS: LOTRISONE CREAM TOP SCH ×2 (10:10→21:59)
[2019-11-01] MEDS: FOLIC ACID PEG SCH (10:10)
[2019-11-01] MEDS: KEPPRA PEG SCH ×2 (10:10→22:00)
[2019-11-01] MEDS: VITAMIN B-1 PEG SCH (10:10)
[2019-11-01] MEDS: RISPERDAL M-TAB PEG SCH ×2 (10:10→16:59)
[2019-11-01] MEDS: VITAMIN C PO SCH ×2 (10:10→17:00)
[2019-11-01] MEDS: ZINC SULFATE PO SCH ×2 (10:10→16:59)
[2019-11-01] MEDS: THERAGRAN LIQUID PEG SCH ×2 (10:12→22:00)
[2019-11-01] MEDS: PERIDEX MT SCH ×2 (10:12→17:06)
[2019-11-01] MEDS: TENOFOVIR DISOPROXIL FUMARATE PEG SCH (17:02)
[2019-11-01] MEDS ORDERED: VANCOMYCIN 1,300 MG in NS 250 ML IV SCH (20:00)
[2019-11-01] MEDS: VANCOMYCIN 1,300 MG in NS 250 ML IV SCH (21:59)
[2019-11-01] MEDS: ARICEPT PEG SCH (22:00)
--- NOTE | 2019-11-01 22:03 | PROGRESS NOTE ---
DATE: 11/01/2019 SUBJECTIVE: The patient is resting comfortably in bed. He has multiple blisters on his left hand and wrist area. It appears to correlate with where he had tape applied from prior IV. Also, the left arm is swollen. OBJECTIVE: Vital Signs: Temperature 99.4 degrees, blood pressure 115/73, heart rate 72, respirations 18, O2 saturations 100% on 2 L nasal cannula. Intake 2 L, output 500. General: This is a chronically ill-appearing elderly male lying in bed in no acute distress. Heart: S1, S2 normal. Regular rate and rhythm. Lungs: Equal air entry bilaterally. No wheezing. No rales. Abdomen: Positive bowel sounds. Soft, nontender, nondistended. Extremities: 2+ edema in the left arm. No edema in the lower extremities. Neurologic: The patient is awake, but has dementia. LABS: White blood cell count 8, hemoglobin 8.2, hematocrit 27, platelets 141,000. Sodium 141, potassium 3.8, chloride 107, CO2 26, BUN 7, creatinine 0.6, glucose 105. IMAGING PROCEDURE: Chest x-ray shows a small right pleural effusion and improvement in the left basilar atelectasis. ASSESSMENT AND PLAN: 1. Acute hypoxemic respiratory failure. Likely secondary to aspiration pneumonia. We will continue to treat the patient with antibiotics. 2. Aspiration pneumonia. Continue with antibiotic therapy. We will also keep the head of the patient's bed up especially while receiving tube feeds. 3. History of alcohol dependence. Aware. 4. Alcohol-related dementia. Aware. 5. Dysphagia status post percutaneous endoscopic gastrostomy tube. Continue with tube feeds. 6. Left arm blisters. This appears to be an allergic reaction to tape. We will continue to monitor the area closely and consult with wound care. 7. Seizure disorder. Continue on Keppra. 8. Chronic hepatitis B. Continue on tenofovir. 9. Deep vein thrombosis prophylaxis. Will start the patient on Lovenox. cc: MD JEANNE Joseph
[2019-11-01] MEDS: LOVENOX SUBQ SCH (22:09)
[2019-11-02] MEDS: FLAGYL 500 MG/NS 500 MG/100 ML IVPB IV SCH ×5 (00:01→22:28)
[2019-11-02] MEDS: DUONEB (A & A) INH SCH ×4 (03:32→21:52)
[2019-11-02] MEDS: VALIUM PEG SCH ×3 (06:17→21:08)
[2019-11-02] MEDS: MAXIPIME 2 GM/NS 2 GM/100 ML IVPB IV SCH ×2 (06:26→18:19)
[2019-11-02 08:16] LABS: HEMOGLOBIN 8.5 g/dL (14.0-18.0); MCH 24.8 PG (27-31); MCHC 30.4 g/dL (33-37); MCV 81.6 FL (81-99); RBC 3.43 XMIL (4.7-6.1); RDW 16.4 % (11.5-14.5); WBC 7.29 X1000 (4.8-10.8)
[2019-11-02 08:32] LABS: AGAP 6; ALBUMIN 2.5 g/dL (3.5-5.0); BUN 7 mg/dL (8-22); CALCIUM 8.4 mg/dL (8.8-10.2); CHLORIDE 106 mmol/L (98-107); COSMO 280; CREATININE 0.6 mg/dL (0.7-1.2); ESTIMATED GFR > 60; GLUCOSE 112 mg/dL (70-104); MAGNESIUM 1.4 mg/dL (1.5-2.7); PHOSPHORUS 2.6 mg/dL (2.7-4.5); POTASSIUM 3.7 mmol/L (3.5-5.1); SODIUM 141 mmol/L (136-145); TCO2 29 mmol/L (25-35)
[2019-11-02] MEDS: MILK OF MAGNESIA PEG SCH (08:46)
[2019-11-02] MEDS: NAMENDA PEG SCH (08:46)
[2019-11-02] MEDS: PERIDEX MT SCH ×2 (08:46→17:34)
[2019-11-02] MEDS: VITAMIN B-1 PEG SCH (08:46)
[2019-11-02] MEDS: THERAGRAN LIQUID PEG SCH ×2 (08:47→21:08)
[2019-11-02] MEDS: FOLIC ACID PEG SCH (08:47)
[2019-11-02] MEDS: SEROQUEL PEG SCH ×2 (08:47→17:31)
[2019-11-02] MEDS: VITAMIN C PO SCH ×2 (08:47→17:32)
[2019-11-02] MEDS: VASELINE TOP SCH (08:47)
[2019-11-02] MEDS: ZINC SULFATE PO SCH ×2 (08:47→17:32)
[2019-11-02] MEDS: KEPPRA PEG SCH ×2 (08:47→21:08)
[2019-11-02] MEDS: RISPERDAL M-TAB PEG SCH ×2 (08:47→17:33)
[2019-11-02] MEDS: ASPIRIN PEG SCH (08:47)
[2019-11-02] MEDS: LOTRISONE CREAM TOP SCH ×2 (08:49→21:09)
[2019-11-02] MEDS: NEXIUM PACKET PEG SCH (08:49)
[2019-11-02] MEDS: PATIENT'S OWN MED PO SCH ×2 (08:50→21:09)
[2019-11-02] MEDS: MUCOMYST 20% INH SCH ×2 (09:52→21:52)
[2019-11-02] MEDS ORDERED: MAGNESIUM SULFATE 2 GM/S.W.I. 2 GM/50 ML IVPB IV ONE (11:41)
--- NOTE | 2019-11-02 12:09 | PROGRESS NOTE ---
DATE: 11/02/2019 SUBJECTIVE: The patient is resting comfortably in bed. He has blisters on the left hand and left wrist from tape. OBJECTIVE: Vital Signs: Temperature 99.1 degrees, blood pressure 120/75, heart rate 80, respirations 20, O2 saturation 97% on 2 L nasal cannula. Intake 1.9 liters; output 1.5 liters. General: This is a chronically ill-appearing elderly male, sitting up in bed in no acute distress. Heart: S1, S2 normal. Regular rate and rhythm. Lungs: Coarse breath sounds bilaterally with crackles. Abdomen: Positive bowel sounds. Soft. The PEG tube is in place. Extremities: The patient has blisters on the left hand and left wrist. Neurologic: The patient is awake and oriented to person. He does have dementia. LABS: White blood cell count 7.2, hemoglobin 8.5, hematocrit 28, platelets 156. Sodium 141, potassium 3.7, chloride 106, CO2 29. BUN 7, creatinine 0.6, glucose 112, magnesium 1.4. ASSESSMENT AND PLAN: 1. Acute hypoxemic respiratory failure. Likely secondary to aspiration pneumonia. 2. Aspiration pneumonia. The patient's uncle stated that the patient is allowed to the eat and drink food occasionally at the [facility], which likely led to the aspiration event. Will keep the head of the bed up while receiving tube feeds. Continue with antibiotic therapy. 3. Alcohol-related dementia. Aware. 4. Left hand and wrist blisters. This appears to be an allergic reaction to the tape where a prior intravenous line was placed. We will continue to monitor the blisters closely. Wound Care has been consulted. 5. Dysphagia status post percutaneous endoscopic gastrostomy tube. Continue with tube feeds with aspiration precautions. 6. Seizure disorder. Continue on Keppra. 7. Chronic hepatitis B. Continue on Tenofovir. 8. Deep vein thrombosis prophylaxis. The patient is on Lovenox. 9. Disposition: Once the patient is medically stable, he will be discharged to [facility]. The patient's uncle was updated on the patient's medical condition this morning at the bedside. All of his questions were answered. cc: Gita Amor MD MTDD
[2019-11-02] MEDS: VANCOMYCIN 1,300 MG in NS 250 ML IV SCH (13:48)
[2019-11-02] MEDS: TENOFOVIR DISOPROXIL FUMARATE PEG SCH (17:33)
[2019-11-02] MEDS: LOVENOX SUBQ SCH (21:08)
[2019-11-02] MEDS: ARICEPT PEG SCH (21:08)
[2019-11-03] MEDS: DUONEB (A & A) INH SCH ×4 (03:35→22:21)
[2019-11-03] MEDS: MAXIPIME 2 GM/NS 2 GM/100 ML IVPB IV SCH ×3 (04:55→17:31)
[2019-11-03] MEDS: FLAGYL 500 MG/NS 500 MG/100 ML IVPB IV SCH ×4 (04:55→23:11)
[2019-11-03] MEDS: VALIUM PEG SCH ×3 (04:55→21:10)
[2019-11-03 08:32] LABS: HEMATOCRIT 26.3 % (42.0-52.0); HEMOGLOBIN 8.2 g/dL (14.0-18.0); MCH 25.6 PG (27-31); MCHC 31.2 g/dL (33-37); MCV 82.2 FL (81-99); MPV 11.8 FL (7.4-10.4); RBC 3.2 XMIL (4.7-6.1); RDW 16.5 % (11.5-14.5); WBC 6.01 X1000 (4.8-10.8)
[2019-11-03] MEDS: VANCOMYCIN 1,300 MG in NS 250 ML IV SCH (08:49)
[2019-11-03 08:51] LABS: AGAP 7; BUN 7 mg/dL (8-22); CHLORIDE 104 mmol/L (98-107); COSMO 279; CREATININE 0.5 mg/dL (0.7-1.2); ESTIMATED GFR > 60; GLUCOSE 100 mg/dL (70-104); MAGNESIUM 1.6 mg/dL (1.5-2.7); SODIUM 141 mmol/L (136-145); TCO2 30 mmol/L (25-35)
[2019-11-03] MEDS ORDERED: MAGNESIUM SULFATE 2 GM/S.W.I. 2 GM/50 ML IVPB IV ONE (09:14)
--- NOTE | 2019-11-03 09:31 | Extremity Venous Study ---
PROCEDURE NAME: Venous U/S Left Arm - 11/02/2019 REQUESTING PHYSICIAN: Dr. Amor. RADIO STATION OPERATOR: Fuad. INDICATIONS: Swelling. EQUIPMENT: [employer] Vivid E9 ultrasound system and a 9 L-D transducer. FINDINGS: Images of the left upper extremity venous system and comparison to the right subclavian vein were obtained in both sagittal and transverse planes. Doppler was used to evaluate veins for spontaneity, phasicity, respiratory excursion, and digital augmentation. RESULTS: Normal venous compression, normal venous flow. No obvious superficial or deep venous thrombosis noted. INTERPRETATION: Essentially normal left upper extremity venous study. cc: MD Gita Mathews MD
[2019-11-03] MEDS: THERAGRAN LIQUID PEG SCH ×2 (10:23→21:12)
[2019-11-03] MEDS: PERIDEX MT SCH ×2 (10:24→17:36)
[2019-11-03] MEDS: ZINC SULFATE PO SCH ×2 (10:25→17:36)
[2019-11-03] MEDS: NAMENDA PEG SCH (10:25)
[2019-11-03] MEDS: VITAMIN B-1 PEG SCH (10:25)
[2019-11-03] MEDS: RISPERDAL M-TAB PEG SCH ×2 (10:25→17:36)
[2019-11-03] MEDS: FOLIC ACID PEG SCH (10:25)
[2019-11-03] MEDS: ASPIRIN PEG SCH (10:26)
[2019-11-03] MEDS: SEROQUEL PEG SCH ×2 (10:26→17:32)
[2019-11-03] MEDS: VITAMIN C PO SCH ×2 (10:26→17:36)
[2019-11-03] MEDS: KEPPRA PEG SCH ×2 (10:26→21:10)
[2019-11-03] MEDS: NEXIUM PACKET PEG SCH (10:26)
[2019-11-03] MEDS: VASELINE TOP SCH (10:47)
[2019-11-03] MEDS: LOTRISONE CREAM TOP SCH ×2 (10:47→21:11)
[2019-11-03] MEDS: PATIENT'S OWN MED PO SCH ×2 (10:47→21:12)
--- NOTE | 2019-11-03 10:48 | Diag Imaging Result Doc PS360 ---
CHEST-1 VIEW - 11/03/2019 INDICATION: pneumonia COMPARISON: 11/01/2019 FINDINGS: Stable critically low lung volumes. Stable bibasilar linear atelectasis. There has been improvement in the small right basilar pleural effusion. Heart size remains top normal. IMPRESSION: Nonspecific findings. Improvement in the small right pleural effusion. Electronically signed by Alen Gregory 11/03/2019 10:45 AM
[2019-11-03] MEDS: MUCOMYST 20% INH SCH ×2 (11:46→22:21)
[2019-11-03] MEDS: TENOFOVIR DISOPROXIL FUMARATE PEG SCH (17:41)
--- NOTE | 2019-11-03 20:21 | PROGRESS NOTE ---
DATE: 11/03/2019 SUBJECTIVE: The patient is sitting up in bed resting comfortably. No acute events noted overnight. OBJECTIVE: Vital Signs: Temperature 98.7 degrees, blood pressure 135/75, heart rate 72, respirations 24, O2 saturations 100% on 2 L nasal cannula. General: This is a chronically ill- appearing elderly male sitting up in bed in no acute distress. Heart: S1, S2 normal. Regular rate and rhythm. Lungs: Coarse breath sounds bilaterally. Abdomen: Positive bowel sounds. Soft, nontender, nondistended. There is a PEG tube in place. Extremities: No edema, no cyanosis. The left hand is wrapped in a clean dry dressing. LABORATORY DATA: White blood cell count 6, hemoglobin 8.2, hematocrit 26. Sodium 141, potassium 4, chloride 104, CO2 30, BUN 7, creatinine 0.5 glucose 100, magnesium 1.6. ASSESSMENT AND PLAN: 1. Acute hypoxemic respiratory failure. Continue with the current treatment regimen. 2. Aspiration pneumonia. Continue with the current antibiotics. The patient is currently n.p.o. 3. Alcohol-related dementia. Aware. 4. Left hand and wrist blisters. Continue with the wound care. 5. Dysphagia status post percutaneous endoscopic gastrostomy tube placement. Continue with the tube feeds with aspiration precautions. 6. Chronic hepatitis B. Continue on tenofovir. 7. Seizure disorder. Continue on Keppra. 8. Deep vein thrombosis prophylaxis. Continue on Lovenox. 9. Disposition. The patient will be discharged to [facility] once he is deemed to be medically stable. cc: Gita Amor MD
[2019-11-03] MEDS: ARICEPT PEG SCH (21:11)
[2019-11-03] MEDS: LOVENOX SUBQ SCH (21:15)
[2019-11-04] MEDS: VANCOMYCIN 1,300 MG in NS 250 ML IV SCH ×2 (01:48→20:01)
[2019-11-04] MEDS: DUONEB (A & A) INH SCH ×4 (03:48→22:52)
[2019-11-04] MEDS: VALIUM PEG SCH ×3 (04:37→20:01)
[2019-11-04] MEDS: MAXIPIME 2 GM/NS 2 GM/100 ML IVPB IV SCH ×2 (05:07→20:02)
[2019-11-04] MEDS: FLAGYL 500 MG/NS 500 MG/100 ML IVPB IV SCH ×4 (05:54→23:47)
[2019-11-04] MEDS: ZINC SULFATE PO SCH ×2 (08:05→17:59)
[2019-11-04] MEDS: PERIDEX MT SCH ×2 (08:05→17:59)
[2019-11-04] MEDS: NEXIUM PACKET PEG SCH (08:05)
[2019-11-04] MEDS: THERAGRAN LIQUID PEG SCH ×2 (08:05→20:03)
[2019-11-04] MEDS: FOLIC ACID PEG SCH (08:05)
[2019-11-04] MEDS: SEROQUEL PEG SCH ×2 (08:05→17:59)
[2019-11-04] MEDS: MILK OF MAGNESIA PEG SCH (08:05)
[2019-11-04] MEDS: NAMENDA PEG SCH (08:05)
[2019-11-04] MEDS: KEPPRA PEG SCH ×2 (08:05→20:02)
[2019-11-04] MEDS: ASPIRIN PEG SCH (08:05)
[2019-11-04] MEDS: VITAMIN C PO SCH ×2 (08:05→17:59)
[2019-11-04] MEDS: VITAMIN B-1 PEG SCH (08:05)
[2019-11-04] MEDS: PATIENT'S OWN MED PO SCH ×2 (08:06→20:03)
[2019-11-04] MEDS: RISPERDAL M-TAB PEG SCH ×2 (08:06→17:59)
[2019-11-04] MEDS: VASELINE TOP SCH (08:06)
[2019-11-04] MEDS: LOTRISONE CREAM TOP SCH ×2 (08:06→20:06)
[2019-11-04] MEDS: MUCOMYST 20% INH SCH ×2 (10:32→22:52)
[2019-11-04] MEDS: TENOFOVIR DISOPROXIL FUMARATE PEG SCH (17:59)
--- NOTE | 2019-11-04 18:23 | PROGRESS NOTE ---
DATE: 11/04/2019 SUBJECTIVE: The patient is resting comfortably. No acute events noted overnight. OBJECTIVE: Vital Signs: Temperature 98.4, blood pressure 109/66, heart rate 75, respirations 18, O2 saturation 100% on 2 L nasal cannula. General: This is a [id number] elderly male sitting up in bed in no acute distress. Heart: S1, S2 normal. Lungs: Equal air entry bilaterally. Abdomen: Positive bowel sounds. The PEG tube is in place. Extremities: No edema, no cyanosis. Neurologic: The patient is awake and alert. LABS: None. ASSESSMENT AND PLAN: 1. Acute hypoxemic respiratory failure. Continue to treat the underlying aspiration pneumonia. 2. Aspiration pneumonia. Continue with current antibiotic regimen. Continue with n.p.o. status. 3. Left hand and wrist blisters. Slowly improving. 4. Alcohol-related dementia. Aware. 5. Dysphagia, status post percutaneous endoscopic gastrostomy tube placement. Continue with tube feeds. 6. Chronic hepatitis B. Continue on Tenofovir. 7. Seizure disorder. Continue on Keppra. 8. Deep vein thrombosis prophylaxis. Continue on Lovenox. 9. Disposition. We will likely plan to discharge the patient to [facility] on Thursday. cc: Gita Amor MD
[2019-11-04] MEDS: ARICEPT PEG SCH (20:02)
[2019-11-04] MEDS: LOVENOX SUBQ SCH ×2 (20:03→22:30)
[2019-11-05] MEDS: DUONEB (A & A) INH SCH ×4 (03:17→22:09)
[2019-11-05] MEDS: VALIUM PEG SCH ×3 (05:27→19:59)
[2019-11-05] MEDS: FLAGYL 500 MG/NS 500 MG/100 ML IVPB IV SCH ×3 (05:27→18:01)
[2019-11-05] MEDS: MUCOMYST 20% INH SCH ×2 (09:22→22:09)
--- NOTE | 2019-11-05 10:28 | Diag Imaging Result Doc PS360 ---
EXAM: CT THORAX W/O CONTRAST HISTORY: pneumonia TECHNIQUE: CT chest without intravenous contrast COMPARISON: 08/23/2019 FINDINGS: There are tiny bilateral pleural effusions. No cardiomegaly. No aortic aneurysm. Mildly prominent mediastinal and hilar nodes. There is central vascular distention. Air bronchograms are found in the lower lobes and there is basilar atelectasis. Scarring or tiny infiltrate in the right apex. IMPRESSION: 1.Lower lobe pneumonia and atelectasis 2.Vascular distention with trace pleural fluid This exam was performed using automated exposure control, adjustment of mA or kV according to patient size, and/or use of iterative reconstruction technique. Electronically signed by Mike Tijerina 11/05/2019 10:25 AM
[2019-11-05] MEDS: KEPPRA PEG SCH ×2 (10:45→19:59)
[2019-11-05] MEDS: VITAMIN C PO SCH ×2 (10:46→15:29)
[2019-11-05] MEDS: RISPERDAL M-TAB PEG SCH ×2 (10:46→15:30)
[2019-11-05] MEDS: ZINC SULFATE PO SCH ×2 (10:46→15:29)
[2019-11-05] MEDS: SEROQUEL PEG SCH ×2 (10:46→15:30)
[2019-11-05] MEDS: FOLIC ACID PEG SCH (10:47)
[2019-11-05] MEDS: ASPIRIN PEG SCH (10:47)
[2019-11-05] MEDS: MAXIPIME 2 GM/NS 2 GM/100 ML IVPB IV SCH (10:48)
[2019-11-05] MEDS: NEXIUM PACKET PEG SCH (10:48)
[2019-11-05] MEDS: LOTRISONE CREAM TOP SCH ×2 (10:48→19:59)
[2019-11-05] MEDS: NAMENDA PEG SCH (10:48)
[2019-11-05] MEDS: PERIDEX MT SCH ×2 (10:49→18:01)
[2019-11-05] MEDS: THERAGRAN LIQUID PEG SCH ×2 (10:49→19:59)
[2019-11-05] MEDS: PATIENT'S OWN MED PO SCH ×2 (10:49→20:00)
[2019-11-05] MEDS: VASELINE TOP SCH (10:50)
[2019-11-05] MEDS: TRANSDERM-SCOP TD SCH ×2 (10:50→12:46)
[2019-11-05] MEDS: VITAMIN B-1 PEG SCH (10:50)
[2019-11-05] MEDS ORDERED: LASIX IV ONE (11:17)
[2019-11-05] MEDS: MERREM 1 GM in NS 50 ML IV SCH (15:29)
[2019-11-05] MEDS: VANCOMYCIN 1,900 MG in NS 500 ML IV SCH (15:30)
--- NOTE | 2019-11-05 16:09 | PROGRESS NOTE ---
DATE: 11/05/2019 SUBJECTIVE: The patient is resting comfortably. No acute events noted overnight. OBJECTIVE: Vital Signs: Temperature 98.1 degrees, blood pressure 135/87, heart rate 65, respirations 17, O2 saturations 98% on 2 L nasal cannula. General: This is a chronically ill- appearing elderly male lying in bed in no acute distress. Heart: S1, S2. Lungs: Coarse breath sounds with crackles. Abdomen: Positive bowel sounds. Soft. There is a PEG tube in place. Extremities: No edema, no cyanosis. Neurologic: The patient is awake but demented. LABS: None. ASSESSMENT AND PLAN: 1. Acute hypoxemic respiratory failure. Continue to treat the underlying aspiration pneumonia. 2. Bilateral lobe aspiration pneumonia. Continue on the current antibiotic regimen. The CT of the chest done today reveals that the patient continues to have pneumonia. Continue with NPO status and aspiration precautions. 3. Left hand and wrist blisters. Continue with wound care. 4. Dysphagia status post percutaneous endoscopic gastrostomy tube placement. Continue with percutaneous endoscopic gastrostomy tube feedings. 5. Alcohol-related dementia. Aware. 6. Chronic hepatitis B. Continue on tenofovir. 7. Seizure disorder. Continue on Keppra. 8. Deep vein thrombosis prophylaxis. Continue on Lovenox. 9. Disposition. The patient will be discharged to [facility] once he is medically stable. cc: Gita Amor MD
[2019-11-05] MEDS: TENOFOVIR DISOPROXIL FUMARATE PEG SCH (18:00)
[2019-11-05] MEDS: LOVENOX SUBQ SCH (19:59)
[2019-11-05] MEDS: ARICEPT PEG SCH (19:59)
[2019-11-06] MEDS: FLAGYL 500 MG/NS 500 MG/100 ML IVPB IV SCH ×5 (00:24→23:33)
[2019-11-06] MEDS: LOVENOX SUBQ SCH ×2 (00:24→23:42)
[2019-11-06] MEDS: MERREM 1 GM in NS 50 ML IV SCH ×3 (00:24→16:24)
[2019-11-06] MEDS: DUONEB (A & A) INH SCH ×4 (03:55→22:01)
[2019-11-06] MEDS: VALIUM PEG SCH ×3 (04:07→23:30)
[2019-11-06 08:11] LABS: BASO# 0.01 X1000 (0.0-0.2); BASO% 0.1 % (0.0-0.8); EOS# 0.38 X1000 (0.0-0.7); EOS% 5.6 % (0.0-10.0); HEMATOCRIT 29.1 % (42.0-52.0); HEMOGLOBIN 8.9 g/dL (14.0-18.0); IMM GRAN# 0.06 X1000 (0.0-0.04); IMM GRAN% 0.9 % (0.0-0.5); LYMPH# 1.73 X1000 (1.2-3.4); LYMPH% 25.5 % (20.5-51.1); MCH 24.9 PG (27-31); MCHC 30.6 g/dL (33-37); MCV 81.5 FL (81-99); MONO# 0.82 X1000 (0.11-0.59); MONO% 12.1 % (1.7-9.3); MPV 11.5 FL (7.4-10.4); NEUT# 3.79 X1000 (1.4-6.5); NEUT% 55.8 % (42.2-75.2); PLT 184 X1000 (130-400); RBC 3.57 XMIL (4.7-6.1); RDW 16.3 % (11.5-14.5); WBC 6.79 X1000 (4.8-10.8)
[2019-11-06 08:53] LABS: AGAP 5; BUN 11 mg/dL (8-22); CALCIUM 8.6 mg/dL (8.8-10.2); CHLORIDE 101 mmol/L (98-107); COSMO 279; CREATININE 0.7 mg/dL (0.7-1.2); ESTIMATED GFR > 60; GLUCOSE 105 mg/dL (70-104); SODIUM 140 mmol/L (136-145); TCO2 34 mmol/L (25-35)
[2019-11-06] MEDS: MUCOMYST 20% INH SCH ×2 (09:14→19:55)
[2019-11-06] MEDS: KEPPRA PEG SCH ×2 (10:32→23:37)
[2019-11-06] MEDS: ZINC SULFATE PO SCH ×2 (10:32→16:36)
[2019-11-06] MEDS: RISPERDAL M-TAB PEG SCH ×2 (10:32→16:24)
[2019-11-06] MEDS: NAMENDA PEG SCH (10:32)
[2019-11-06] MEDS: VITAMIN C PO SCH ×2 (10:32→16:38)
[2019-11-06] MEDS: SEROQUEL PEG SCH ×2 (10:33→16:36)
[2019-11-06] MEDS: ASPIRIN PEG SCH (10:33)
[2019-11-06] MEDS: NEXIUM PACKET PEG SCH (10:33)
[2019-11-06] MEDS: FOLIC ACID PEG SCH (10:33)
[2019-11-06] MEDS: PATIENT'S OWN MED PO SCH ×2 (10:34→23:30)
[2019-11-06] MEDS: LOTRISONE CREAM TOP SCH ×2 (10:34→23:40)
[2019-11-06] MEDS: VASELINE TOP SCH (10:35)
[2019-11-06] MEDS: VITAMIN B-1 PEG SCH (10:35)
[2019-11-06] MEDS: PERIDEX MT SCH ×2 (10:35→16:38)
[2019-11-06] MEDS: THERAGRAN LIQUID PEG SCH ×2 (10:35→23:38)
[2019-11-06] MEDS: VANCOMYCIN 1,900 MG in NS 500 ML IV SCH (16:25)
[2019-11-06] MEDS: TENOFOVIR DISOPROXIL FUMARATE PEG SCH (16:36)
--- NOTE | 2019-11-06 19:57 | PROGRESS NOTE ---
DATE: 11/06/2019 SUBJECTIVE: The patient is resting comfortably in bed. He keeps saying that he is cold. No acute events noted overnight. OBJECTIVE: Vital Signs: Temperature 97.5 degrees, blood pressure 135/74, heart rate 86, respirations 18, O2 saturation 100% on 2 L nasal cannula. Intake 1.2 L. Output 2.4 L. General: This is a chronically ill-appearing elderly male lying in bed in no acute distress. Heart: S1, S2. Normal. Regular rate and rhythm. Lungs: Coarse breath sounds bilaterally with crackles. Abdomen: Positive bowel sounds. Soft, nontender, nondistended. Extremities: No edema, no cyanosis, no calf tenderness. LABORATORY DATA: White blood cell count 6.7, hemoglobin 8.9, hematocrit 29, platelets 184,000. Sodium 140, potassium 4, chloride 101, CO2 34, BUN 11, creatinine 0.7, glucose 105. ASSESSMENT AND PLAN: 1. Acute hypoxemic respiratory failure. Continue to treat the underlying pneumonia. 2. Bilateral lobe aspiration pneumonia. Continue with antibiotic therapy. Continue with strict aspiration precautions and NPO status. 3. Left hand and wrist blisters. Improved. 4. Dysphagia status post percutaneous endoscopic gastrostomy tube placement. Continue with tube feeds. 5. Alcohol-related dementia. Aware. 6. Chronic hepatitis B. Continue on Tenofovir. 7. Seizure disorder. Continue on Keppra. 8. Deep vein thrombosis prophylaxis. Continue on Lovenox. 9. Disposition. The patient will be discharged to [facility] once he is medically stable. cc: Gita Amor MD MTDD
[2019-11-06] MEDS: ARICEPT PEG SCH (23:40)
[2019-11-07] MEDS: MERREM 1 GM in NS 50 ML IV SCH ×3 (01:52→16:07)
[2019-11-07] MEDS: DUONEB (A & A) INH SCH ×4 (03:15→21:39)
[2019-11-07] MEDS: FLAGYL 500 MG/NS 500 MG/100 ML IVPB IV SCH ×4 (04:50→22:44)
--- NOTE | 2019-11-07 07:34 | Diag Imaging Result Doc PS360 ---
CHEST-1 VIEW - 11/07/2019 INDICATION: pneumonia COMPARISON: 11/03/2019 FINDINGS: Stable critically low lung volumes with nonspecific basilar infiltrates/atelectasis bilaterally. Heart size remains normal. No new infiltrates. IMPRESSION: No change from prior. Electronically signed by Alen Gregory 11/07/2019 7:31 AM
[2019-11-07 08:03] LABS: BASO# 0.02 X1000 (0.0-0.2); BASO% 0.4 % (0.0-0.8); EOS% 3.6 % (0.0-10.0); HEMATOCRIT 26.8 % (42.0-52.0); HEMOGLOBIN 8.1 g/dL (14.0-18.0); IMM GRAN# 0.03 X1000 (0.0-0.04); IMM GRAN% 0.5 % (0.0-0.5); LYMPH# 1.31 X1000 (1.2-3.4); LYMPH% 23.4 % (20.5-51.1); MCHC 30.2 g/dL (33-37); MCV 82.7 FL (81-99); MONO# 0.68 X1000 (0.11-0.59); MONO% 12.1 % (1.7-9.3); MPV 11.7 FL (7.4-10.4); NEUT# 3.36 X1000 (1.4-6.5); PLT 197 X1000 (130-400); RBC 3.24 XMIL (4.7-6.1); RDW 16.5 % (11.5-14.5)
[2019-11-07 09:12] LABS: AGAP 7; BUN 13 mg/dL (8-22); CALCIUM 8.1 mg/dL (8.8-10.2); CHLORIDE 104 mmol/L (98-107); COSMO 286; CREATININE 0.7 mg/dL (0.7-1.2); ESTIMATED GFR > 60; GLUCOSE 113 mg/dL (70-104); POTASSIUM 4.4 mmol/L (3.5-5.1); SODIUM 143 mmol/L (136-145); TCO2 32 mmol/L (25-35)
[2019-11-07] MEDS: KEPPRA PEG SCH ×2 (10:30→22:44)
[2019-11-07] MEDS: RISPERDAL M-TAB PEG SCH ×2 (10:31→16:08)
[2019-11-07] MEDS: SEROQUEL PEG SCH ×2 (10:31→16:08)
[2019-11-07] MEDS: VITAMIN C PO SCH ×2 (10:32→16:12)
[2019-11-07] MEDS: FOLIC ACID PEG SCH (10:32)
[2019-11-07] MEDS: ASPIRIN PEG SCH (10:32)
[2019-11-07] MEDS: ZINC SULFATE PO SCH ×2 (10:32→16:13)
[2019-11-07] MEDS: MILK OF MAGNESIA PEG SCH (10:33)
[2019-11-07] MEDS: LOTRISONE CREAM TOP SCH ×2 (10:33→22:45)
[2019-11-07] MEDS: NAMENDA PEG SCH (10:33)
[2019-11-07] MEDS: NEXIUM PACKET PEG SCH (10:33)
[2019-11-07] MEDS: PERIDEX MT SCH ×2 (10:34→16:13)
[2019-11-07] MEDS: VASELINE TOP SCH (10:34)
[2019-11-07] MEDS: PATIENT'S OWN MED PO SCH ×2 (10:34→22:46)
[2019-11-07] MEDS: THERAGRAN LIQUID PEG SCH ×2 (10:34→22:46)
[2019-11-07] MEDS: VITAMIN B-1 PEG SCH (10:35)
[2019-11-07] MEDS: MUCOMYST 20% INH SCH ×2 (11:28→19:21)
[2019-11-07] MEDS: VALIUM PEG SCH ×2 (14:16→22:45)
--- NOTE | 2019-11-07 14:28 | PROGRESS NOTE ---
DATE: 11/07/2019 SUBJECTIVE: The patient is resting comfortably in bed. His family is present at the bedside. No acute events noted overnight. OBJECTIVE: Vital Signs: Temperature 98.6 degrees, blood pressure 125/74, heart rate 84, respirations 20, O2 saturation is 100% on 2 L nasal cannula. General: This is a chronically ill- appearing, elderly male, lying in bed in no acute distress. Heart: S1, S2 normal. Regular rate and rhythm. Lungs: Coarse breath sounds bilaterally. Abdomen: Positive bowel sounds. Soft. There is a PEG tube in place. Extremities: No edema, no cyanosis, no calf tenderness. Neurologic: The patient is awake and alert. He does have dementia. IMAGING AND LABORATORY DATA: White blood cell count 5.6, hemoglobin 8.1, hematocrit 26, platelets 197,000. Sodium 143, potassium 4.4, chloride 104, CO2 of 32, BUN 13, creatinine 0.7, glucose 113. Chest x-ray shows basilar infiltrates bilaterally. ASSESSMENT AND PLAN: 1. Acute hypoxemic respiratory failure. Continue to treat the underlying aspiration pneumonia. 2. Bilateral lobe aspiration pneumonia. Continue with antibiotic therapy, strict aspiration precautions, and nothing by mouth status. 3. Left hand and wrist blisters. Improved. Continue with wound care. 4. Dysphagia, status post percutaneous endoscopic gastrostomy tube placement. Continue with percutaneous endoscopic gastrostomy tube feedings. 5. Alcohol-related dementia. Aware. 6. Seizure disorder. Continue on Keppra. 7. Chronic hepatitis B. Continue on tenofovir. 8. Deep vein thrombosis prophylaxis. Continue on Lovenox. 9. Disposition. The patient can be discharged to [facility] once he is medically stable. The patient's family was updated on the patient's medical condition at the bedside. All questions were answered. cc: Gita Amor MD
[2019-11-07] MEDS: TENOFOVIR DISOPROXIL FUMARATE PEG SCH (17:26)
[2019-11-07] MEDS: VANCOMYCIN 1,900 MG in NS 500 ML IV SCH (17:26)
[2019-11-07] MEDS: ARICEPT PEG SCH (22:44)
[2019-11-07] MEDS: LOVENOX SUBQ SCH (22:46)
[2019-11-08] MEDS: MERREM 1 GM in NS 50 ML IV SCH ×3 (01:30→15:56)
[2019-11-08] MEDS: DUONEB (A & A) INH SCH ×4 (03:25→23:34)
[2019-11-08] MEDS: FLAGYL 500 MG/NS 500 MG/100 ML IVPB IV SCH ×2 (06:10→12:18)
[2019-11-08] MEDS: VALIUM PEG SCH ×4 (06:15→20:32)
[2019-11-08 08:46] LABS: HEMATOCRIT 30.4 % (42.0-52.0); HEMOGLOBIN 9.5 g/dL (14.0-18.0); MCH 25.7 PG (27-31); MCHC 31.3 g/dL (33-37); MCV 82.2 FL (81-99); MPV 11.1 FL (7.4-10.4); RBC 3.7 XMIL (4.7-6.1); RDW 16.7 % (11.5-14.5); WBC 6.16 X1000 (4.8-10.8)
[2019-11-08 09:02] LABS: AGAP 7; BUN 11 mg/dL (8-22); CALCIUM 8.8 mg/dL (8.8-10.2); CHLORIDE 102 mmol/L (98-107); COSMO 279; CREATININE 0.7 mg/dL (0.7-1.2); ESTIMATED GFR > 60; GLUCOSE 99 mg/dL (70-104); POTASSIUM 4.3 mmol/L (3.5-5.1); SODIUM 140 mmol/L (136-145); TCO2 31 mmol/L (25-35)
[2019-11-08] MEDS: FOLIC ACID PEG SCH (10:27)
[2019-11-08] MEDS: VITAMIN B-1 PEG SCH (10:27)
[2019-11-08] MEDS: THERAGRAN LIQUID PEG SCH ×2 (10:28→20:32)
[2019-11-08] MEDS: VITAMIN C PO SCH ×2 (10:28→15:57)
[2019-11-08] MEDS: ZINC SULFATE PO SCH ×2 (10:28→15:58)
[2019-11-08] MEDS: NAMENDA PEG SCH (10:28)
[2019-11-08] MEDS: ASPIRIN PEG SCH (10:28)
[2019-11-08] MEDS: SEROQUEL PEG SCH ×2 (10:28→15:57)
[2019-11-08] MEDS: NEXIUM PACKET PEG SCH (10:28)
[2019-11-08] MEDS: KEPPRA PEG SCH ×2 (10:28→20:31)
[2019-11-08] MEDS: PATIENT'S OWN MED PO SCH ×2 (10:30→23:24)
[2019-11-08] MEDS: PERIDEX MT SCH ×2 (10:31→16:00)
[2019-11-08] MEDS: LOTRISONE CREAM TOP SCH ×2 (10:32→20:32)
[2019-11-08] MEDS: VASELINE TOP SCH (10:32)
[2019-11-08] MEDS: RISPERDAL M-TAB PEG SCH ×2 (10:33→15:57)
[2019-11-08] MEDS: TRANSDERM-SCOP TD SCH (10:41)
[2019-11-08] MEDS: MUCOMYST 20% INH SCH ×2 (11:10→20:35)
[2019-11-08] MEDS: VANCOMYCIN 2,200 MG in NS 500 ML IV SCH (16:48)
--- NOTE | 2019-11-08 19:29 | PROGRESS NOTE ---
DATE: 11/08/2019 INTERVAL HISTORY: No acute events overnight. SUBJECTIVE: Mr. Delarosa does not appear in acute distress. He states he is occasionally coughing. He denies any chest pain or shortness of breath. However, considering his dementia, the historical data may not be completely reliable. CURRENT VITALS: Temperature 97.7 degrees, pulse 99, respiratory 18, blood pressure 140/72, he is saturating 99% on 2 L nasal cannula. PHYSICAL EXAMINATION: He is not in acute distress. He does have poor dental hygiene and some a pool of secretions in the mouth. He is able to cough, but does not appear strong. He has poor inspiratory effort.Lungs: Air entry bilaterally equal. No wheeze or rhonchi. No crackles. Abdomen: Soft active bowel sounds. Nontender. He has a PEG tube. Extremities: No lower extremity edema. He was able to raise both upper and lower extremities above ground level. LABS: Suggestive of WBC of 6.1, hemoglobin 9.5, platelets 202,000. Normal kidney function with BUN of 11, creatinine of 0.7. ASSESSMENT AND PLAN: 1. Acute hypoxic respiratory failure due to bilateral lower lobe aspiration pneumonia. His chest CT on November 05 still had persistent infiltrate. My plan is to treat him with intravenous vancomycin and intravenous meropenem for at least 5 to 7 days of intravenous course and later on I will change it to oral antibiotics to complete a total of 10 to 14 days course. Unfortunately, he is going to be at risk of recurrent aspiration pneumonia. I will consult palliative care for further goals of care discussion with the family since we may end up in a situation where he may need intubation in the future. 2. History of multiple cerebrovascular accidents, alcohol abuse, and vascular dementia leading to dysphagia status post percutaneous endoscopic gastrostomy tube. Continue percutaneous endoscopic gastrostomy tube feeding. He did have a bowel movement. 3. Seizures. Continue home Keppra, continue tenofovir finn for chronic hepatitis B, Lovenox for deep venous thrombosis prophylaxis, continue multivitamins and folic acid, which are his home medication, percutaneous endoscopic gastrostomy tube for carotid artery stenosis, diazepam, which is his home medication, memantine for dementia. DISPOSITION: I will continue to monitor patient inside the hospital as he continues to need IV antibiotics for his pneumonia. I will keep the family informed. cc: Marvin Briggs MD
[2019-11-08] MEDS: ARICEPT PEG SCH (20:32)
[2019-11-08] MEDS: TENOFOVIR DISOPROXIL FUMARATE PEG SCH (20:36)
[2019-11-08] MEDS: LOVENOX SUBQ SCH (22:50)
[2019-11-09] MEDS: MERREM 1 GM in NS 50 ML IV SCH ×3 (00:14→16:23)
[2019-11-09] MEDS: DUONEB (A & A) INH SCH ×4 (03:29→22:00)
[2019-11-09] MEDS: VALIUM PEG SCH ×2 (05:24→13:40)
[2019-11-09 08:29] LABS: BASO# 0.01 X1000 (0.0-0.2); BASO% 0.2 % (0.0-0.8); EOS# 0.16 X1000 (0.0-0.7); EOS% 2.7 % (0.0-10.0); HEMATOCRIT 30.1 % (42.0-52.0); HEMOGLOBIN 9.1 g/dL (14.0-18.0); IMM GRAN# 0.02 X1000 (0.0-0.04); IMM GRAN% 0.3 % (0.0-0.5); LYMPH# 1.93 X1000 (1.2-3.4); LYMPH% 32.3 % (20.5-51.1); MCHC 30.2 g/dL (33-37); MCV 82.7 FL (81-99); MONO# 0.67 X1000 (0.11-0.59); MONO% 11.2 % (1.7-9.3); MPV 11.7 FL (7.4-10.4); NEUT# 3.18 X1000 (1.4-6.5); NEUT% 53.3 % (42.2-75.2); PLT 227 X1000 (130-400); RBC 3.64 XMIL (4.7-6.1); RDW 16.7 % (11.5-14.5); WBC 5.97 X1000 (4.8-10.8)
[2019-11-09 08:40] LABS: AGAP 7; BUN 14 mg/dL (8-22); CALCIUM 8.5 mg/dL (8.8-10.2); CHLORIDE 100 mmol/L (98-107); COSMO 277; CREATININE 0.7 mg/dL (0.7-1.2); ESTIMATED GFR > 60; GLUCOSE 79 mg/dL (70-104); SODIUM 139 mmol/L (136-145); TCO2 32 mmol/L (25-35)
[2019-11-09] MEDS: MUCOMYST 20% INH SCH ×2 (09:10→22:00)
[2019-11-09] MEDS: SEROQUEL PEG SCH ×2 (09:57→16:26)
[2019-11-09] MEDS: NAMENDA PEG SCH (09:57)
[2019-11-09] MEDS: NEXIUM PACKET PEG SCH (09:58)
[2019-11-09] MEDS: PERIDEX MT SCH ×2 (09:58→18:18)
[2019-11-09] MEDS: VITAMIN C PO SCH ×2 (09:58→16:25)
[2019-11-09] MEDS: MILK OF MAGNESIA PEG SCH (09:58)
[2019-11-09] MEDS: RISPERDAL M-TAB PEG SCH ×2 (09:58→16:24)
[2019-11-09] MEDS: ASPIRIN PEG SCH (09:58)
[2019-11-09] MEDS: ZINC SULFATE PO SCH ×2 (09:58→16:25)
[2019-11-09] MEDS: THERAGRAN LIQUID PEG SCH ×2 (09:59→23:55)
[2019-11-09] MEDS: PATIENT'S OWN MED PO SCH (09:59)
[2019-11-09] MEDS: VASELINE TOP SCH (10:00)
[2019-11-09] MEDS: KEPPRA PEG SCH ×2 (10:00→23:54)
[2019-11-09] MEDS: LOTRISONE CREAM TOP SCH (10:00)
[2019-11-09] MEDS: VANCOMYCIN 2,200 MG in NS 500 ML IV SCH (16:25)
[2019-11-09] MEDS: TENOFOVIR DISOPROXIL FUMARATE PEG SCH (16:26)
--- NOTE | 2019-11-09 22:16 | PROGRESS NOTE ---
DATE: 11/09/2019 INTERVAL HISTORY: No acute events overnight. SUBJECTIVE: Mr. Delarosa is sleepy. He does not appear in distress. OBJECTIVE: Vital signs: Temperature 97.6 degrees, pulse 86, respiratory rate 20, blood pressure 125/70, saturating 100% on nasal cannula. On physical examination, oral cavity has secretions in his mouth. Air entry bilaterally equal. He has poor inspiratory effort. No specific wheeze or rhonchi. S1, S2 normal. No murmur, rub or gallop. Abdomen is soft. He has a PEG tube. Active bowel sounds. No lower extremity edema. He is drowsy but arousable. He answers simple questions. LABORATORY DATA: Labs suggestive of hemoglobin of 9.1, platelets 227,000. BUN of 14, creatinine 0.7. ASSESSMENT AND PLAN: 1. Acute hypoxic respiratory failure due to bilateral lower lobe aspiration pneumonia. 2. History of multiple cerebrovascular accidents, alcohol abuse and vascular dementia. 3. Dysphagia, status post percutaneous endoscopic gastrostomy tube. 4. History of seizure. 5. History of agitation, on multiple sedative/hypnotic medications. PLAN: I will continue him on intravenous antibiotics, and my plan is to stop intravenous antibiotics tomorrow and discharge him to a custodial. I am also decreasing his multiple sedative/hypnotic medication to prevent risk of aspiration. Unfortunately, he has recurrent aspiration pneumonia risk. cc: Marvin Briggs MD
[2019-11-09] MEDS: ARICEPT PEG SCH (23:54)
[2019-11-09] MEDS: LOVENOX SUBQ SCH (23:55)
[2019-11-10] MEDS: LOTRISONE CREAM TOP SCH ×2 (00:15→11:02)
[2019-11-10] MEDS: PATIENT'S OWN MED PO SCH ×2 (00:16→11:02)
[2019-11-10] MEDS: MERREM 1 GM in NS 50 ML IV SCH ×2 (01:20→10:03)
[2019-11-10] MEDS: DUONEB (A & A) INH SCH ×2 (03:40→09:23)
[2019-11-10 08:31] LABS: AGAP 3; BUN 14 mg/dL (8-22); CALCIUM 8.3 mg/dL (8.8-10.2); CHLORIDE 102 mmol/L (98-107); COSMO 277; CREATININE 0.6 mg/dL (0.7-1.2); ESTIMATED GFR > 60; GLUCOSE 119 mg/dL (70-104); POTASSIUM 4.4 mmol/L (3.5-5.1); SODIUM 138 mmol/L (136-145); TCO2 33 mmol/L (25-35)
[2019-11-10] MEDS: MUCOMYST 20% INH SCH (09:23)
[2019-11-10] MEDS: PERIDEX MT SCH (10:01)
[2019-11-10] MEDS: THERAGRAN LIQUID PEG SCH (10:01)
[2019-11-10] MEDS: SEROQUEL PEG SCH (10:02)
[2019-11-10] MEDS: ZINC SULFATE PO SCH (10:02)
[2019-11-10] MEDS: NAMENDA PEG SCH (10:02)
[2019-11-10] MEDS: VITAMIN C PO SCH (10:02)
[2019-11-10] MEDS: ASPIRIN PEG SCH (10:02)
[2019-11-10] MEDS: NEXIUM PACKET PEG SCH (10:02)
[2019-11-10] MEDS: KEPPRA PEG SCH (10:07)
[2019-11-10] MEDS: VASELINE TOP SCH (11:01)
[2019-11-10 12:07] VITALS: BP 125/74
--- NOTE | 2019-11-10 14:32 | DISCHARGE SUMMARY ---
ADMISSION DATE: 10/29/2019 DISCHARGE DATE: 11/10/2019 DISCHARGE DISPOSITION: [facility] to [facility]. DISCHARGE CONDITION: Hemodynamically stable. He is saturating well on room air and to 2 L nasal cannula. DISCHARGE DIAGNOSES: 1. Acute hypoxic respiratory failure. 2. Sepsis. 3. Bilateral lower lobe aspiration pneumonia. 4. Left hand wound. OTHER DIAGNOSES: 1. History of multiple cerebrovascular accident. 2. History of alcohol abuse in the past. 3. History of dementia, vascular as well as alcohol induced. 4. Status post percutaneous endoscopic gastrostomy tube for dysphagia. 5. History of multiple aspiration pneumonia. 6. History of seizure. 7. History of carotid artery stenosis. CONSULTATION DURING HOSPITAL ADMISSION: None. NUTRITION: Through PEG tube. The patient is strict n.p.o. VITALS: At time of discharge, temperature 97 degrees, pulse 108, respiratory 18, blood pressure 125/74 saturating 100% on room air and 100% on 2 L nasal cannula. PHYSICAL EXAMINATION: General: Mr. Delarosa is not in acute distress. He has pool of saliva in his mouth. Lungs: Air entry bilaterally equal. He has poor inspiratory effort. No wheeze or rhonchi. Mild crackles in the infrascapular region. Cardiovascular: S1, S2 normal. No murmur or gallop. Abdomen: Soft, nontender. PEG tube site appears not bleeding or no pus. Extremities: He does not have any lower extremity edema. Neurologic: He is alert. He is able to follow simple commands like raising both upper extremity and lower extremity. He has some speech impairment. He is not able to engage in meaningful conversation. He has a left hand wound. LABS AT THE TIME OF DISCHARGE: WBC 5.9, hemoglobin 9.1, platelet 227, potassium 4.4. BUN 14, creatinine 0.6, blood glucose 119. MICROBIOLOGY: Blood culture influenza screen was negative. SIGNIFICANT IMAGING ON HOSPITAL ADMISSION: 1. Chest x-ray on October 29 had bibasilar atelectasis and pulmonary edema and pulmonary venous congestion and infiltrate suggestive of likely pneumonia. 2. Extremity venous study on November 02 did not have any left upper extremity deep vein thrombosis. 3. Chest CT on 11/05/2019 had lower lobe pneumonia and atelectasis, vascular distention with trace pleural fluid. 4. Electrocardiogram on 10/29/2019 had sinus tachycardia, left axis deviation, nonspecific ST abnormality. DISCHARGE MEDICATIONS: 1. Acetaminophen 650 mg through PEG tube every 4 hours as needed. 2. Aspirin 81 mg daily. 3. Calmoseptine ointment 1 application topical as needed. 4. Centrum multivitamin mineral liquid 15 mL b.i.d. 5. Clotrimazole 1 application topical b.i.d. 6. Donepezil 10 mg at nighttime. 7. DuoNebs 1 dose inhaled every 6 hours. 8. Folic acid 1 mg in the morning time. 9. Keppra 500 mg b.i.d. 10. Memantine 10 mg daily. 11. Metoprolol 12.5 mg daily. 12. Esomeprazole or Nexium 40 mg daily. 13. Chlorhexidine gluconate 30 mL b.i.d. 14. Quetiapine 50 mg b.i.d. at 8 a.m. and 4 p.m. 15. Tenofovir 300 mg daily at 4 p.m. 16. Thiamine 100 mg in the morning time. 17. Diazepam 2.5 mg at nighttime. 18. Metronidazole 500 mg t.i.d. for 4 days for pneumonia. 19. Magnesium hydroxide 30 mL PEG tube Thursday, Thursday, Thursday. 20. Mucomyst 20% 3 mL inhaled b.i.d. 21. Petroleum jelly 1 dose topical daily for dry skin. 22. Venelex ointment 30 g topical t.i.d. for unstageable pressure injury to left heel. All of his medication need to be given through PEG tube, except topical medications. HOSPITAL COURSE SUMMARY: Mr. Delarosa is a 64-year-old man, who presented on 10/29/2019 with chief complaints of fever, increasing cough, increasing shortness of breath ,and increasing work of breathing. In the emergency room, he was found to have temperature of 104.5 degrees, pulse of 90-100, respiratory rate of 22 to 28, blood pressure of 80/57, and oxygen saturation of 84 to 91 percent, so the hospitalist team was consulted for further management. The patient was diagnosed with sepsis and acute hypoxic respiratory failure due to bilateral aspiration pneumonia, which was thought to be related to his chronic dysphagia. He was started on oxygen therapy, broad-spectrum intravenous antibiotics, and was kept nothing by mouth, and was admitted for further management. Chest CT performed 3 to 4 days after admission did detect persistent infiltrates, so antibiotics were changed. At the time of dictation, he has received almost 10 days of intravenous antibiotics, and he has been on intravenous meropenem and intravenous vancomycin since at least 6 days. It was decided he did not have leukocytosis. He had not had any more fever. So, it was decided to stop the antibiotics and change it to metronidazole through PEG tube and discharge him. There were some changes made in his medications for agitation, including decreasing the frequency of diazepam to only at nighttime instead of t.i.d., as well as stopping risperidone considering it was making patient drowsy and was probably increasing risk of aspiration. I met with the patient's uncle at bedside and had informed him about patient's unfortunately chronic aspiration and risk of recurrent aspiration pneumonia. I also informed him that he should have discussion with the patient and other concerned family members about code status for future, as the patient may end up in a situation where his aspiration pneumonia would get worse and may need intubation in future admissions. He understood it. TIME SPENT: More than 30 minutes time was spent discharging this patient. cc: Marvin Briggs MD
[2019-11-10] MEDS ORDERED: VALIUM PEG SCH (21:00)
== END 2019-11-10 16:10 | DRG 871 ==
LOC: SUPCPDRO → ED 14:28 → SUATTDRO 20:33 → EDIPHOLD 20:33 → 3N 10-30 16:03
PROVIDERS: ATTEND Internal Medicine